=== PATIENT | male | born 1950 | race Caucasian/White ===

== ENCOUNTER 2019-10-08 15:36 | Emergency (ER) | payer MEDICARE ==
--- NOTE | 2019-10-08 17:00 | EDM.PDOC ---
ED HPI GENERAL MEDICAL PROBLEM - General Chief Complaint: General Stated Complaint: FOOT INJURY/ STEPPED ON DOG BONE Time Seen by Provider: 10/08/19 16:00 Source of Information: Reports: Patient History Limitations: Reports: No Limitations - History of Present Illness INITIAL COMMENTS - FREE TEXT/NARRATIVE: Patient is a 69 y/o male who presents with left foot injury that happened 3 days ago. Patient states his dog dropped a t-bone onto his foot. Associated oozing, redness, swelling, and pain to left, lateral dorsal foot. Patient denies fever, N/V, PMHx of diabetes, numbness/tingling, or purulent drainage. Left Foot Pain Score (Numeric/FACES): 8 - Related Data Allergies Allergy/AdvReac Type Severity Reaction Status Date / Time No Known Allergies Allergy Verified 12/30/15 17:01 Home Meds: Home Meds Aspirin/Calcium Carbonate/Mag [Aspirin Buffered 325 mg Tab] 325 mg PO DAILY 12/30/15 [History] Furosemide 40 mg PO DAILY 12/30/15 [History] Magnesium Oxide [Magnesium] 400 mg PO DAILY 12/30/15 [History] [place]-3 Fatty Acids [Fish Oil] 1,000 mg PO DAILY 12/30/15 [History] Warfarin [Coumadin] 4 mg PO MOFR 12/30/15 [History] Warfarin [Coumadin] 6 mg PO SUTUWETHSA 12/30/15 [History] Past Medical History Cardiovascular History: Reports: Blood Clots/VTE/DVT, Hypertension Social & Family History - Family History Family Medical History: Noncontributory ED ROS GENERAL - Review of Systems Review Of Systems: Comprehensive ROS is negative, except as noted in HPI. ED EXAM, GENERAL - Physical Exam Exam: See Below Exam Limited By: No Limitations General Appearance: Alert, No Apparent Distress Peripheral Pulses: 2+: Posterior Tibial (L), Posterior Tibial (R), Dorsalis Pedis (L), Dorsalis Pedis (R) Extremities: Non-Tender, Normal Capillary Refill, Pedal Edema Skin Exam: Warm, Dry, Intact, Erythema, Other (Left, dorsal lateral foot erythema with scab (0.5 cm diameter)) Course - Vital Signs Last Recorded V/S: Last Vital Signs Temp 37.0 C 10/08/19 16:46 Pulse 69 10/08/19 16:46 Resp 18 10/08/19 16:46 BP 135/82 10/08/19 16:46 Pulse Ox 94 L 10/08/19 16:46 Departure - Departure Time of Disposition: 16:50 Disposition: Home, Self-Care 01 Condition: Good Clinical Impression: Cellulitis of foot, left - Discharge Information *PRESCRIPTION DRUG MONITORING PROGRAM REVIEWED*: Not Applicable *COPY OF PRESCRIPTION DRUG MONITORING REPORT IN PATIENT MANA: Not Applicable Instructions: Cellulitis, Adult, [id number] Referrals: PCP,None [Primary Care Provider] - Forms: ED Department Discharge Additional Instructions: Discharge home. Bactrim DS 2 times a day for 10 days with food. Naproxen 500mg by mouth 2 times a day for 10 days. Elevate the foot. Return to the hospital on Saturday. Follow up as needed. Sepsis Event Note (ED) - Evaluation Sepsis Screening Result: No Definite Risk - Focused Exam Vital Signs: Vital Signs Temp Pulse Resp BP Pulse Ox 10/08/19 16:46 37.0 C 69 18 135/82 94 L 10/08/19 16:05 37.0 C 69 18 135/82 94 L - Assessment/Plan Plan: Bactrim DS PO BID x 10 days. Naproxen 500 mg PO BID x 10 days. Labs reviewed and no evidence of kidney insufficiency. Advised patient to return in 3 days for wound re-check. Take medications with food and elevate left foot when possible. Loose fitting shoes for now. Return to the ED for fever >102, unable to tolerate fluids, difficulty breathing/swallowing, and/or persistent/worsening symptoms.
== END 2019-10-08 16:25 | disposition home or self-care (01) ==
LOC: LB.ED 15:36
DX: L03.116 Cellulitis of left lower limb (principal); I10 Essential (primary) hypertension; Z79.82 Long term (current) use of aspirin; Z79.01 Long term (current) use of anticoagulants; Z79.899 Other long term (current) drug therapy
CPT/HCPCS: 99282; 99283

== ENCOUNTER 2020-01-21 00:14 | Emergency (ER) | payer MEDICARE ==
[2020-01-21] MEDS: Lactated Ringers 1,000 ML IV ONE ×2 (01:20→02:53)
--- NOTE | 2020-01-21 01:32 | EDM.PDOC ---
ED HPI GENERAL MEDICAL PROBLEM - General Chief Complaint: Respiratory Problem Stated Complaint: Fall, High heart rate, Short of breath Time Seen by Provider: 01/21/20 00:50 Source of Information: Reports: Patient History Limitations: Reports: No Limitations - History of Present Illness INITIAL COMMENTS - FREE TEXT/NARRATIVE: The patient is a 69-year-old white male who has been undergoing treatment since October for a wound to his left foot with cellulitis of the left leg.. He currently is not on antibiotics and is having every other day dressing changes to the left leg and dressing changes to the right leg. Patient reports he had bandages placed today wounds are looking improved. Today this afternoon patient noted onset of generalized weakness with difficulty being able to walk or stand. He also had onset of fever and shortness of breath. Patient has a history of DVTs and atrial fibrillation. He has INRs done weekly. Today he reports his INR was over 4 and he took 2 mg of Coumadin. Patient's complaints at this time are generalized weakness, shortness of breath and fever. Patient with ongoing dressing changes to left leg and right leg with the worst leg being the left leg. Has healing wounds on the top of his left foot and over his anterior left mcmahon. Patient reports these are much improved. Onset: Other (Fever and shortness of breath started this evening along with generalized weakness) Onset Date: 01/20/20 Onset Time: 20:00 Duration: Minutes: (Symptoms present for the past 6 hours), Other Severity: Moderate Context: Reports: Other (0.183 and a normal okay but a little bit of troponin right and 0.17 is 0.017 is 0.0 23 okay) Associated Symptoms: Reports: Fever/Chills (The other jonathan had Tylenol available of the second dose right), Shortness of Breath, Weakness. Denies: Confusion, Chest Pain, Cough, Nausea/Vomiting - Related Data Allergies Allergy/AdvReac Type Severity Reaction Status Date / Time No Known Allergies Allergy Verified 12/30/15 17:01 Home Meds: Home Meds Aspirin/Calcium Carbonate/Mag [Aspirin Buffered 325 mg Tab] 325 mg PO DAILY 12/30/15 [History] Furosemide 40 mg PO DAILY 12/30/15 [History] Magnesium Oxide [Magnesium] 400 mg PO DAILY 12/30/15 [History] [place]-3 Fatty Acids [Fish Oil] 1,000 mg PO DAILY 12/30/15 [History] Warfarin [Coumadin] 4 mg PO MOFR 12/30/15 [History] Warfarin [Coumadin] 6 mg PO SUTUWETHSA 12/30/15 [History] Past Medical History Cardiovascular History: Reports: Afib, Blood Clots/VTE/DVT, Hypertension Social & Family History - Family History Family Medical History: Noncontributory ED ROS GENERAL - Review of Systems Review Of Systems: See Below Constitutional: Reports: Fever, Weakness, Weight Loss. Denies: Chills HEENT: Reports: No Symptoms Respiratory: Reports: Shortness of Breath. Denies: Wheezing, Cough, Sputum, Hemoptysis Cardiovascular: Reports: Other (Rapid heart rate). Denies: Chest Pain GI/Abdominal: Denies: Abdominal Pain, Black Stool, Diarrhea : Reports: No Symptoms, Other (Decreased urination). Denies: Flank Pain, Frequency Skin: Reports: Other (Chronic wounds on left lower leg with dressing in place. Patient reports redness and swelling is much improved) Psychiatric: Denies: Agitation, Confusion Hematologic/Lymphatic: Reports: Anemia ED EXAM, GENERAL - Physical Exam Exam: See Below Exam Limited By: No Limitations General Appearance: Alert, Mild Distress (Tired appearing pale 69-year-old white male in mild respiratory distress), Other Ears: Normal External Exam Nose: Normal Inspection, Normal Mucosa, No Blood Throat/Mouth: Normal Inspection, Normal Lips, Normal Voice Head: Atraumatic, Normocephalic Neck: Normal Inspection, Supple, Non-Tender (Decreased breath sounds in left lower lung field normal no wheezes or rhonchi.), Full Range of Motion Respiratory/Chest: Other (Mild respiratory distress). No: Rhonchi, Wheezing (Mild respiratory distress ) Cardiovascular: Tachycardia ( ), Irregularly Irregular GI/Abdominal: Soft, Non-Tender, No Organomegaly, No Distention Back Exam: Normal Inspection. No: CVA Tenderness (R), CVA Tenderness (L) Extremities: Normal Range of Motion, Other (Bandages present on both legs. Patient states left is much worse than the right. Has healing wound on the dorsal aspect of the left foot and and anterior aspect of left mcmahon. Patient reports redness and swelling are much improved has been having dressing changes for several months. ) Neurological: Alert, Oriented, Normal Cognition Skin Exam: Other (As per extremity exam) #1 Interpretation EKG Date: 01/21/20 Rhythm: Other (With rapid ventricular rate) Course - Vital Signs Text/Narrative:: Patient initially was started on IV fluids with 2 L of lactated Ringer's given over 2 hours. Initial working diagnosis was pneumonia and Levaquin was started 750 mg IV was given. Chest x-ray showed pleural effusion but no definite infiltrate. CT scan of the chest again did not demonstrate an infiltrate. Patient had low blood pressure elevated pulse and fever along with elevated WBC count. Diagnosis of sepsis with source being either pneumonia or cellulitis of the left leg/wound infection of the left leg. Patient unable to provide urine sample prior to being given antibiotics. Blood cultures were obtained and are pending. The case was discussed with the hospitalist at [facility] Dr. Najera who recommended CT of the head to rule out intracranial bleeding as the patient has history of falling to his knees. Patient denies head trauma or headache at this time but hospitalist recommends CT of the head therefore CT will be obtained. If CT is negative the patient will be transferred to [facility]. In the meantime patient will be given 1 g of vancomycin IV and 3.375 g of Zosyn IV Diagnosis at this time sepsis with source of infection being from wound infection/cellulitis versus pneumonia versus other. After the IV fluids patient reported feeling improved tachycardia improved and the patient continued in atrial fibrillation with improved ventricular rate . Patient will require frequent PT/INRs. Diagnosis 1 sepsis 2 atrial fibrillation with RVR improved after fluids 3 anemia 4 elevated troponin Patient will be transferred once Zosyn and vancomycin have been infused and CT scan of the head is read as negative for intracranial bleed Last Recorded V/S: Last Vital Signs Temp 101.1 F H 01/21/20 05:11 Pulse 88 01/21/20 08:05 Resp 20 01/21/20 08:05 BP 99/64 01/21/20 08:05 Pulse Ox 94 L 01/21/20 08:05 - Orders/Labs/Meds Labs: Laboratory Tests 01/21/20 01/21/20 01/21/20 Range/Units 01:00 01:00 01:00 WBC 23.6 H* D (4.0-11.0) K/uL RBC 2.44 L (4.50-6.50) M/uL Hgb 8.4 L D (13.0-18.0) g/dL Hct 25.0 L D (40.0-54.0) % MCV 103 H (76-96) fL MCH 34.4 H (27.0-32.0) pg MCHC 33.6 (31.0-35.0) g/dL RDW 21.9 H (11.0-16.0) % Plt Count 202 D (150-400) K/uL MPV 9.9 (6.0-10.0) fL Neut % (Auto) 90.0 H (45.0-70.0) % Lymph % (Auto) 4.4 L (20.0-40.0) % Sunflower % (Auto) 5.2 (3.0-10.0) % Eos % (Auto) 0.1 L (1.0-5.0) % Baso % (Auto) 0.3 (0.0-0.5) % Neut # (Auto) 21.28 H (2.00-7.50) K/uL Lymph # (Auto) 1.03 L (1.50-4.00) K/uL Sunflower # (Auto) 1.23 H (0.20-0.80) K/uL Eos # (Auto) 0.03 L (0.04-0.40) K/uL Baso # (Auto) 0.06 (0.02-0.10) K/uL PT 34.7 H (9.0-11.5) sec INR 3.5 (1.0-3.5) Sodium 132 L (136-145) mmol/L Potassium 4.6 (3.5-5.1) mmol/L Chloride 97 L (98-107) mmol/L Carbon Dioxide 22.0 D (21.0-32.0) mmol/L Anion Gap 17.6 H (5.0-15.0) mmol/L BUN 43 H D (8-26) mg/dL Creatinine 1.37 H D (0.70-1.30) mg/dL Est Cr Clr Drug Dosing TNP Estimated GFR (MDRD) 51 L (>60) MLS/MIN BUN/Creatinine Ratio 31.4 H (6-25) Glucose 136 H D (74-100) mg/dL Lactic Acid (0.4-2.0) mmol/L Calcium 8.6 (8.5-10.1) mg/dL Magnesium 1.8 (1.8-2.4) mg/dL Troponin I 0.183 H* (0.000-0.060) ng/mL SARS CoV-2 RNA Rapid FELIX 01/21/20 01/21/20 Range/Units 01:00 01:10 WBC (4.0-11.0) K/uL RBC (4.50-6.50) M/uL Hgb (13.0-18.0) g/dL Hct (40.0-54.0) % MCV (76-96) fL MCH (27.0-32.0) pg MCHC (31.0-35.0) g/dL RDW (11.0-16.0) % Plt Count (150-400) K/uL MPV (6.0-10.0) fL Neut % (Auto) (45.0-70.0) % Lymph % (Auto) (20.0-40.0) % Sunflower % (Auto) (3.0-10.0) % Eos % (Auto) (1.0-5.0) % Baso % (Auto) (0.0-0.5) % Neut # (Auto) (2.00-7.50) K/uL Lymph # (Auto) (1.50-4.00) K/uL Sunflower # (Auto) (0.20-0.80) K/uL Eos # (Auto) (0.04-0.40) K/uL Baso # (Auto) (0.02-0.10) K/uL PT (9.0-11.5) sec INR (1.0-3.5) Sodium (136-145) mmol/L Potassium (3.5-5.1) mmol/L Chloride (98-107) mmol/L Carbon Dioxide (21.0-32.0) mmol/L Anion Gap (5.0-15.0) mmol/L BUN (8-26) mg/dL Creatinine (0.70-1.30) mg/dL Est Cr Clr Drug Dosing Estimated GFR (MDRD) (>60) MLS/MIN BUN/Creatinine Ratio (6-25) Glucose (74-100) mg/dL Lactic Acid 3.2 H (0.4-2.0) mmol/L Calcium (8.5-10.1) mg/dL Magnesium (1.8-2.4) mg/dL Troponin I (0.000-0.060) ng/mL SARS CoV-2 RNA Rapid FELIX Negative Meds: Medications Discontinued Medications Generic Name Dose Route Start Last Admin Trade Name Freq PRN Reason Stop Dose Admin Acetaminophen 650 mg 01/21/20 05:49 01/21/20 05:50 Tylenol PO 01/21/20 05:50 650 mg NOW ONE Administration Acetaminophen Confirm 01/21/20 06:01 01/21/20 06:27 Tylenol Administered 01/21/20 06:02 Not Given Dose 650 mg .ROUTE .STK-MED ONE Lactated Ringer's 1,000 mls @ 999 mls/hr 01/21/20 01:25 01/21/20 02:53 Ringers, Lactated IV 01/21/20 02:25 999 mls/hr BOLUS ONE Administration Levofloxacin/Dextrose 750 mg/ 150 mls @ 100 mls/hr 01/21/20 02:00 01/21/20 02:01 Premix IV 100 mls/hr Q24H SUGAR Administration Lactated Ringer's 1,000 mls @ 999 mls/hr 01/21/20 02:55 01/21/20 03:48 Ringers, Lactated IV 01/21/20 03:55 Not Given BOLUS ONE Vancomycin HCl 1 gm/ Sodium 250 mls @ 167 mls/hr 01/21/20 04:15 01/21/20 05:29 Chloride IV 01/21/20 05:44 Not Given Q24H ONE Piperacillin Sod/Tazobactam 100 mls @ 100 mls/hr 01/21/20 04:15 01/21/20 05:00 Sod 3.375 gm/ Sodium Chloride IV 01/21/20 23:59 100 mls/hr Q6H SUGAR Administration Vancomycin HCl 1 gm/ Sodium 250 mls @ 167 mls/hr 01/21/20 04:55 01/21/20 04:58 Chloride IV 01/21/20 06:24 167 mls/hr ONETIME ONE Administration Sodium Chloride 1,000 mls @ 100 mls/hr 01/21/20 06:30 01/21/20 06:20 Normal Saline IV 100 mls/hr ASDIRECTED SUGAR Administration - Radiology Interpretation Free Text/Narrative:: Chest x-ray left pleural effusion CT of the chest without contrast lungs there is mild left lower lobe compressive atelectasis scattered peripheral linear opacities in the right lung likely representing scarring or atelectasis pleural space there is a small left pleural effusion impression small left pleural effusion no consolidation Departure - Departure Time of Disposition: 06:30 Disposition: DC/Tfer to Acute Hospital 02 Condition: Serious Clinical Impression: Septicemia, Atrial fibrillation with RVR Sepsis Qualifiers: Sepsis type: sepsis due to unspecified organism Sepsis acute organ dysfunction status: without acute organ dysfunction Qualified Code(s): A41.9 - Sepsis, unspecified organism Anemia Qualifiers: Anemia type: unspecified type Qualified Code(s): D64.9 - Anemia, unspecified - Discharge Information *PRESCRIPTION DRUG MONITORING PROGRAM REVIEWED*: Not Applicable *COPY OF PRESCRIPTION DRUG MONITORING REPORT IN PATIENT MANA: Not Applicable Referrals: PCP,None [Primary Care Provider] - Forms: ED Department Discharge
[2020-01-21] MEDS ORDERED: Levofloxacin/Dextrose 5%-Water 750 MG in Premix Bag 1 BAG IV SCH (02:00)
[2020-01-21] MEDS ORDERED: Lactated Ringers 1,000 ML IV ONE (02:55)
[2020-01-21] MEDS ORDERED: Piperacillin/Tazobactam 3.375 GM in Sodium Chloride 0.9% 100 ML IV SCH (04:15)
[2020-01-21] MEDS ORDERED: Acetaminophen 325 MG Tab PO ONE (05:49)
[2020-01-21] MEDS ORDERED: Acetaminophen 325 MG Tab ONE (06:01)
[2020-01-21] MEDS ORDERED: Sodium Chloride 0.9% 1,000 ML IV SCH (06:30)
--- NOTE | 2020-01-21 17:19 | CR ---
DATE OF SERVICE: 01/21/20 CLINICAL DATA: Shortness of breath/low o2 sat AP AND LATERAL CHEST: Comparison is made to a prior exam dated 09/19/16. The patient is status post median sternotomy. The heart remains enlarged, unchanged. There is calcification of the aortic arch. The proximal pulmonary arteries appear prominent suggesting pulmonary hypertension. There is a moderate size left pleural effusion. There is atelectasis and consolidation in the left lung base. Pneumonia should be considered. The exam is otherwise unchanged from the prior. No pneumothorax. [id number] [facility]
--- NOTE | 2020-01-21 17:22 | CT ---
DATE OF SERVICE: 01/21/20 CLINICAL DATA: rule out intracranial bleed after a fall UNENHANCED BRAIN CT: Multislice acquisition through the brain without IV contrast was performed. No priors. There is diffuse atrophy. There are periventricular lucencies bilaterally consistent with small vessel ischemic change. No masses or mass effect. No intracranial hemorrhage. No evidence of acute or subacute infarct. IMPRESSION: No acute intracranial abnormalities. [id number] [facility]
--- NOTE | 2020-01-21 17:31 | CT ---
DATE OF SERVICE: 01/21/20 CLINICAL DATA: Fever elevated WBC and low O2sat UNENHANCED CHEST CT: Multislice acquisition through the chest without IV contrast was performed. No priors. There is a moderate size left pleural effusion. There are atelectatic changes of the dependent portion of the left lung with small areas of consolidation in the lingular segment of the left upper lobe and left lung base. Pneumonia should be considered. There are linear densities in the right mid lung consistent with linear atelectasis or fibrosis. There is a subtle nodular density in the right middle lobe posteriorly adjacent to the major fissure. There are multiple other nodular densities in the periphery of the right lung. There is also subtle ground glass opacity in the right upper lobe. Followup imaging is recommended. The heart is mildly enlarged. There are coronary artery calcifications. There are calcifications in the region of the aortic and mitral valves. No pericardial effusion. No aortic aneurysm. No hilar or mediastinal adenopathy. No other significant findings. [id number] [facility]
== END 2020-01-21 08:10 ==
LOC: LB.ED 00:14
DX: A41.9 Sepsis, unspecified organism (principal); D64.9 Anemia, unspecified; I48.91 Unspecified atrial fibrillation; I10 Essential (primary) hypertension; L03.116 Cellulitis of left lower limb; Z79.82 Long term (current) use of aspirin; Z79.899 Other long term (current) drug therapy; Z20.828 Contact with and (suspected) exposure to other viral communicable diseases
CPT/HCPCS: 36415; 70450; 71046; 71250; 80048; 83605; 83735; 84484; 85025; 85610; 87040; 87077; 93005; 96365; 96366; 96367; 96368; 99285; 99285-25; A9270-GY; J1956; J2543; J3370; J7030; J7050; J7120; U0002

== ENCOUNTER 2021-04-29 06:44 | Emergency (ER) | payer MEDICARE | END 2021-04-29 12:10 | disposition home or self-care (01) | LOC: LB.ED 06:44 | DX: R04.0 Epistaxis (principal); I48.91 Unspecified atrial fibrillation; I10 Essential (primary) hypertension; E05.90 Thyrotoxicosis, unspecified without thyrotoxic crisis or storm; Z88.5 Allergy status to narcotic agent; Z79.01 Long term (current) use of anticoagulants; Z79.899 Other long term (current) drug therapy | CPT/HCPCS: 36415; 80048; 85025; 85610; 99283; A0425; A0429 ==

== ENCOUNTER 2021-09-27 11:31 | Inpatient (IN) | payer MEDICARE ==
[2021-09-27] MEDS ORDERED: Sodium Chloride 0.9% 1,000 ML IV ONE (11:52)
[2021-09-27] MEDS ORDERED: HYDROmorphone 2 MG/ML SDV IVPUSH ONE ×2 (11:58→12:46)
[2021-09-27] MEDS ORDERED: Piperacillin/Tazobactam 3.375 GM in Sodium Chloride 0.9% 100 ML IV ONE (12:15)
[2021-09-27 13:08] LABS: ESTIMATED GFR 66 mL/min (>60)
[2021-09-27] MEDS ORDERED: Warfarin 2 MG Tab PO SCH (15:15)
[2021-09-27] MEDS: Lactated Ringers 1,000 ML IV SCH (18:27)
[2021-09-27] MEDS: Morphine 2 MG/ML SYRINGE IVPUSH PRN ×3 (18:35→22:47)
[2021-09-27] MEDS: Warfarin 2 MG Tab PO SCH (18:37)
[2021-09-27] MEDS ORDERED: ceFAZolin 1 GM Vial ONE (19:51)
[2021-09-27] MEDS: ceFAZolin 1 GM in Sodium Chloride 0.9% 50 ML IV SCH (21:17)
[2021-09-28] MEDS: Lactated Ringers 1,000 ML IV SCH (02:30)
[2021-09-28] MEDS: Morphine 2 MG/ML SYRINGE IVPUSH PRN ×4 (03:46→18:46)
[2021-09-28] MEDS: ceFAZolin 1 GM in Sodium Chloride 0.9% 50 ML IV SCH ×3 (05:13→21:08)
[2021-09-28] MEDS ORDERED: Ketorolac 30 MG/ML SDV ONE (07:46)
[2021-09-28] MEDS ORDERED: Non-Formulary Medication 1 Each (Levothyroxine Sodium [Levothyroxine] 50 MCG Capsule) PO SCH (08:00)
[2021-09-28] MEDS: Metoprolol Succinate 25 MG Tab.ER PO SCH (08:36)
[2021-09-28] MEDS: Finasteride 5 MG Tab PO SCH (08:37)
[2021-09-28] MEDS: Levothyroxine 50 MCG Tab PO SCH (09:05)
[2021-09-28] MEDS: Furosemide 40 MG Tab PO SCH (10:58)
[2021-09-28] MEDS: Warfarin 2 MG Tab PO SCH (17:45)
[2021-09-28] MEDS: Acetaminophen/HYDROcodone 325-5 MG Tab PO PRN (17:46)
[2021-09-29] MEDS: Morphine 2 MG/ML SYRINGE IVPUSH PRN ×5 (05:33→20:26)
[2021-09-29] MEDS: Levothyroxine 50 MCG Tab PO SCH (06:04)
[2021-09-29] MEDS: ceFAZolin 1 GM in Sodium Chloride 0.9% 50 ML IV SCH ×3 (06:04→21:18)
[2021-09-29] MEDS: Metoprolol Succinate 25 MG Tab.ER PO SCH (07:34)
[2021-09-29] MEDS: Finasteride 5 MG Tab PO SCH (07:35)
[2021-09-29] MEDS: Furosemide 40 MG Tab PO SCH (07:35)
[2021-09-29] MEDS: Warfarin 2 MG Tab PO SCH (18:10)
[2021-09-30] MEDS: ceFAZolin 1 GM in Sodium Chloride 0.9% 50 ML IV SCH ×3 (05:19→21:01)
[2021-09-30] MEDS: Levothyroxine 50 MCG Tab PO SCH ×2 (05:19→06:08)
[2021-09-30] MEDS: Metoprolol Succinate 25 MG Tab.ER PO SCH (08:07)
[2021-09-30] MEDS: Finasteride 5 MG Tab PO SCH (08:07)
[2021-09-30] MEDS: Furosemide 40 MG Tab PO SCH (08:07)
[2021-09-30] MEDS: Acetaminophen/HYDROcodone 325-5 MG Tab PO PRN (12:11)
[2021-09-30] MEDS: Warfarin 2 MG Tab PO SCH (18:01)
[2021-09-30] MEDS: Polyethylene Glycol 3350 Powder 17 GM Packet PO PRN (19:10)
[2021-09-30] MEDS: Morphine 2 MG/ML SYRINGE IVPUSH PRN (20:14)
[2021-10-01] MEDS: Levothyroxine 50 MCG Tab PO SCH ×2 (05:44→06:25)
[2021-10-01] MEDS: ceFAZolin 1 GM in Sodium Chloride 0.9% 50 ML IV SCH ×3 (05:44→21:41)
[2021-10-01] MEDS: Morphine 2 MG/ML SYRINGE IVPUSH PRN ×4 (06:15→23:50)
[2021-10-01] MEDS: Furosemide 40 MG Tab PO SCH (07:16)
[2021-10-01] MEDS: Finasteride 5 MG Tab PO SCH (07:16)
[2021-10-01] MEDS: Metoprolol Succinate 25 MG Tab.ER PO SCH (07:17)
[2021-10-01] MEDS ORDERED: Furosemide 40 MG/4 ML VIAL IVPUSH ONE (08:13)
[2021-10-01] MEDS: Warfarin 2 MG Tab PO SCH (17:01)
[2021-10-02] MEDS: Morphine 2 MG/ML SYRINGE IVPUSH PRN ×3 (02:48→15:04)
[2021-10-02] MEDS: Levothyroxine 50 MCG Tab PO SCH ×2 (05:26→06:28)
[2021-10-02] MEDS: ceFAZolin 1 GM in Sodium Chloride 0.9% 50 ML IV SCH ×3 (05:27→22:09)
[2021-10-02] MEDS: Metoprolol Succinate 25 MG Tab.ER PO SCH (07:00)
[2021-10-02] MEDS: Finasteride 5 MG Tab PO SCH (07:00)
[2021-10-02] MEDS: Furosemide 40 MG Tab PO SCH (07:00)
[2021-10-02] MEDS ORDERED: Furosemide 40 MG/4 ML VIAL IVPUSH ONE (11:59)
[2021-10-02] MEDS: Warfarin 2 MG Tab PO SCH (19:04)
[2021-10-02] MEDS: Acetaminophen/HYDROcodone 325-5 MG Tab PO PRN (19:38)
[2021-10-03] MEDS: Acetaminophen/HYDROcodone 325-5 MG Tab PO PRN (05:00)
[2021-10-03] MEDS: ceFAZolin 1 GM in Sodium Chloride 0.9% 50 ML IV SCH ×3 (06:10→22:01)
[2021-10-03] MEDS: Levothyroxine 50 MCG Tab PO SCH (06:12)
[2021-10-03] MEDS: Furosemide 40 MG Tab PO SCH (07:57)
[2021-10-03] MEDS: Finasteride 5 MG Tab PO SCH (07:58)
[2021-10-03] MEDS: Metoprolol Succinate 25 MG Tab.ER PO SCH (07:58)
[2021-10-03] MEDS: Warfarin 2 MG Tab PO SCH (18:19)
[2021-10-03] MEDS ORDERED: Warfarin 2 MG Tab ONE (18:23)
[2021-10-03] MEDS ORDERED: Furosemide 40 MG/4 ML VIAL IVPUSH ONE (18:41)
[2021-10-04] MEDS: Acetaminophen/HYDROcodone 325-5 MG Tab PO PRN (02:09)
[2021-10-04] MEDS: ceFAZolin 1 GM in Sodium Chloride 0.9% 50 ML IV SCH ×3 (06:35→22:11)
[2021-10-04] MEDS: Levothyroxine 50 MCG Tab PO SCH (06:44)
[2021-10-04] MEDS: Metoprolol Succinate 25 MG Tab.ER PO SCH (07:53)
[2021-10-04] MEDS: Finasteride 5 MG Tab PO SCH (07:54)
[2021-10-04] MEDS: Furosemide 40 MG Tab PO SCH (07:54)
[2021-10-04] MEDS: Lactobacillus Acidophilus/Lactobacillus Sporogenes (Probiotic) Tab PO SCH (11:43)
[2021-10-04] MEDS: Furosemide 20 MG Tab PO SCH (11:43)
[2021-10-04] MEDS: Warfarin 2 MG Tab PO SCH (17:19)
[2021-10-05] MEDS: Levothyroxine 50 MCG Tab PO SCH (06:18)
[2021-10-05] MEDS: Acetaminophen/HYDROcodone 325-5 MG Tab PO PRN ×2 (06:18→20:14)
[2021-10-05] MEDS: ceFAZolin 1 GM in Sodium Chloride 0.9% 50 ML IV SCH (06:21)
[2021-10-05] MEDS: Furosemide 40 MG Tab PO SCH (07:20)
[2021-10-05] MEDS: Lactobacillus Acidophilus/Lactobacillus Sporogenes (Probiotic) Tab PO SCH (07:20)
[2021-10-05] MEDS: Finasteride 5 MG Tab PO SCH (07:20)
[2021-10-05] MEDS: Furosemide 20 MG Tab PO SCH (07:21)
[2021-10-05] MEDS ORDERED: oxyCODONE 5 MG Tab PO PRN (10:48)
[2021-10-05] MEDS: Cephalexin 500 MG Cap PO SCH ×3 (11:17→20:15)
[2021-10-05] MEDS ORDERED: Furosemide 20 MG Tab PO SCH (14:00)
[2021-10-05] MEDS: Warfarin 2 MG Tab PO SCH (17:12)
[2021-10-06] MEDS: Levothyroxine 50 MCG Tab PO SCH (06:30)
[2021-10-06] MEDS ORDERED: Furosemide 40 MG Tab PO SCH (08:00)
[2021-10-06] MEDS: Cephalexin 500 MG Cap PO SCH ×4 (08:08→19:52)
[2021-10-06] MEDS: Finasteride 5 MG Tab PO SCH (08:08)
[2021-10-06] MEDS: Lactobacillus Acidophilus/Lactobacillus Sporogenes (Probiotic) Tab PO SCH (08:08)
[2021-10-06] MEDS ORDERED: Sodium Chloride 0.9% 10 ML Syringe FLUSH PRN (09:47)
[2021-10-06] MEDS ORDERED: Furosemide 20 MG Tab PO SCH (12:00)
[2021-10-06] MEDS: Furosemide 40 MG/4 ML VIAL IVPUSH SCH (15:47)
[2021-10-06] MEDS: Warfarin 2 MG Tab PO SCH (17:19)
[2021-10-07] MEDS: Levothyroxine 50 MCG Tab PO SCH (06:47)
[2021-10-07] MEDS: Metoprolol Succinate 25 MG Tab.ER PO SCH (07:17)
[2021-10-07] MEDS: Cephalexin 500 MG Cap PO SCH ×4 (07:18→19:21)
[2021-10-07] MEDS: Furosemide 40 MG/4 ML VIAL IVPUSH SCH ×2 (07:18→16:13)
[2021-10-07] MEDS: Lactobacillus Acidophilus/Lactobacillus Sporogenes (Probiotic) Tab PO SCH (07:18)
[2021-10-07] MEDS: Finasteride 5 MG Tab PO SCH (07:18)
[2021-10-07] MEDS: Warfarin 2 MG Tab PO SCH (17:58)
[2021-10-08] MEDS: Levothyroxine 50 MCG Tab PO SCH (06:38)
[2021-10-08] MEDS: Lactobacillus Acidophilus/Lactobacillus Sporogenes (Probiotic) Tab PO SCH (07:30)
[2021-10-08] MEDS: Finasteride 5 MG Tab PO SCH (07:30)
[2021-10-08] MEDS: Furosemide 40 MG/4 ML VIAL IVPUSH SCH (07:30)
[2021-10-08] MEDS: Cephalexin 500 MG Cap PO SCH ×4 (07:30→19:45)
[2021-10-08] MEDS: Warfarin 2 MG Tab PO SCH (17:38)
[2021-10-08] MEDS ORDERED: Bumetanide 1 MG/4 ML MDV ONE (19:42)
[2021-10-08] MEDS: Bumetanide 1 MG/4 ML MDV IVPUSH SCH (19:49)
[2021-10-09] MEDS: Levothyroxine 50 MCG Tab PO SCH (06:31)
[2021-10-09] MEDS ORDERED: Bumetanide 1 MG/4 ML MDV ONE (07:52)
[2021-10-09] MEDS: Metoprolol Succinate 25 MG Tab.ER PO SCH (07:58)
[2021-10-09] MEDS: Bumetanide 1 MG/4 ML MDV IVPUSH SCH ×2 (07:58→21:01)
[2021-10-09] MEDS: Finasteride 5 MG Tab PO SCH (08:01)
[2021-10-09] MEDS: Cephalexin 500 MG Cap PO SCH ×4 (08:01→21:02)
[2021-10-09] MEDS: Lactobacillus Acidophilus/Lactobacillus Sporogenes (Probiotic) Tab PO SCH (08:02)
[2021-10-10] MEDS: Acetaminophen 325 MG Tab PO PRN (00:29)
[2021-10-10] MEDS: Levothyroxine 50 MCG Tab PO SCH (06:46)
[2021-10-10] MEDS ORDERED: Bumetanide 1 MG/4 ML MDV ONE (08:48)
[2021-10-10] MEDS: Bumetanide 1 MG/4 ML MDV IVPUSH SCH ×2 (08:48→20:27)
[2021-10-10] MEDS: Lactobacillus Acidophilus/Lactobacillus Sporogenes (Probiotic) Tab PO SCH (08:53)
[2021-10-10] MEDS: Cephalexin 500 MG Cap PO SCH ×4 (08:53→20:27)
[2021-10-10] MEDS: Finasteride 5 MG Tab PO SCH (08:53)
[2021-10-10] MEDS: Metoprolol Succinate 25 MG Tab.ER PO SCH (09:10)
[2021-10-10] MEDS ORDERED: Warfarin 4 MG Tab PO ONE (18:00)
[2021-10-10] MEDS: Polyethylene Glycol 3350 Powder 17 GM Packet PO PRN (22:37)
[2021-10-11] MEDS: Acetaminophen 325 MG Tab PO PRN (00:59)
[2021-10-11] MEDS: Levothyroxine 50 MCG Tab PO SCH (06:16)
[2021-10-11] MEDS: Bumetanide 1 MG/4 ML MDV IVPUSH SCH ×2 (07:32→21:55)
[2021-10-11] MEDS: Finasteride 5 MG Tab PO SCH (07:33)
[2021-10-11] MEDS: Metoprolol Succinate 25 MG Tab.ER PO SCH (07:33)
[2021-10-11] MEDS: Lactobacillus Acidophilus/Lactobacillus Sporogenes (Probiotic) Tab PO SCH (07:33)
[2021-10-11] MEDS: Warfarin 2 MG Tab PO SCH (18:43)
[2021-10-12] MEDS: Levothyroxine 50 MCG Tab PO SCH (06:08)
[2021-10-12] MEDS: Metoprolol Succinate 25 MG Tab.ER PO SCH (08:03)
[2021-10-12] MEDS: Lactobacillus Acidophilus/Lactobacillus Sporogenes (Probiotic) Tab PO SCH (08:03)
[2021-10-12] MEDS: Finasteride 5 MG Tab PO SCH (08:05)
[2021-10-12] MEDS: Bumetanide 1 MG/4 ML MDV IVPUSH SCH ×2 (08:06→19:12)
[2021-10-12 09:00] LABS: TROPONIN I HIGH SENSITIVITY 266.4 pg/ml (<=60.4)
[2021-10-12] MEDS: Warfarin 2 MG Tab PO SCH (17:27)
[2021-10-12] MEDS: Polyethylene Glycol 3350 Powder 17 GM Packet PO PRN (19:30)
[2021-10-13] MEDS: Levothyroxine 50 MCG Tab PO SCH (05:59)
[2021-10-13] MEDS: Lactobacillus Acidophilus/Lactobacillus Sporogenes (Probiotic) Tab PO SCH (07:31)
[2021-10-13] MEDS: Finasteride 5 MG Tab PO SCH (07:31)
[2021-10-13] MEDS: Bumetanide 1 MG/4 ML MDV IVPUSH SCH (07:32)
[2021-10-13] MEDS: Metoprolol Succinate 25 MG Tab.ER PO SCH (07:33)
[2021-10-13] MEDS: Bumetanide 1 MG Tab PO SCH (16:54)
[2021-10-13] MEDS: Warfarin 2 MG Tab PO SCH (17:10)
[2021-10-14] MEDS: Levothyroxine 50 MCG Tab PO SCH (07:39)
[2021-10-14] MEDS: Lactobacillus Acidophilus/Lactobacillus Sporogenes (Probiotic) Tab PO SCH (07:41)
[2021-10-14] MEDS: Finasteride 5 MG Tab PO SCH (07:41)
[2021-10-14] MEDS: Bumetanide 1 MG Tab PO SCH ×2 (07:41→16:12)
[2021-10-14] MEDS: Metoprolol Succinate 25 MG Tab.ER PO SCH (07:42)
[2021-10-14] MEDS: Nystatin Topical Powder 15 GM Bottle TOP SCH ×2 (16:11→23:07)
[2021-10-14] MEDS: Warfarin 2 MG Tab PO SCH (17:15)
[2021-10-15] MEDS: Bumetanide 1 MG Tab PO SCH ×2 (07:43→15:18)
[2021-10-15] MEDS: Metoprolol Succinate 25 MG Tab.ER PO SCH (07:43)
[2021-10-15] MEDS: Lactobacillus Acidophilus/Lactobacillus Sporogenes (Probiotic) Tab PO SCH (07:44)
[2021-10-15] MEDS: Nystatin Topical Powder 15 GM Bottle TOP SCH ×2 (07:44→19:57)
[2021-10-15] MEDS: Levothyroxine 50 MCG Tab PO SCH (07:44)
[2021-10-15] MEDS: Finasteride 5 MG Tab PO SCH (07:45)
[2021-10-15] MEDS: Warfarin 2 MG Tab PO SCH (19:58)
[2021-10-16] MEDS: Levothyroxine 50 MCG Tab PO SCH (06:00)
[2021-10-16] MEDS: Finasteride 5 MG Tab PO SCH (08:04)
[2021-10-16] MEDS: Metoprolol Succinate 25 MG Tab.ER PO SCH (08:04)
[2021-10-16] MEDS: Lactobacillus Acidophilus/Lactobacillus Sporogenes (Probiotic) Tab PO SCH (08:04)
[2021-10-16] MEDS: Bumetanide 1 MG Tab PO SCH (08:04)
== END 2021-10-16 10:30 | disposition home or self-care (01) | DRG 603 ==
LOC: LB.ED 11:31 → LB.MS 15:10
PROVIDERS: ADMIT Physician Assistant; ATTEND Physician Assistant
DX: L03.115 Cellulitis of right lower limb (principal); I48.91 Unspecified atrial fibrillation; E05.90 Thyrotoxicosis, unspecified without thyrotoxic crisis or storm; E03.9 Hypothyroidism, unspecified; Z20.822 Contact with and (suspected) exposure to COVID-19; Z86.718 Personal history of other venous thrombosis and embolism; Z95.2 Presence of prosthetic heart valve; R79.1 Abnormal coagulation profile; R00.1 Bradycardia, unspecified; R60.0 Localized edema; N50.89 Other specified disorders of the male genital organs; Z79.890 Hormone replacement therapy; Z88.8 Allergy status to other drugs, medicaments and biological substances; Z79.01 Long term (current) use of anticoagulants; Z79.899 Other long term (current) drug therapy; I50.9 Heart failure, unspecified; I11.0 Hypertensive heart disease with heart failure
CPT/HCPCS: 36415; 51702; 51798; 73700-RT; 80048; 80053; 81001; 82533; 82728; 83605; 83880; 84443; 84484; 85025; 85610; 87040; 93306; 96361; 96365; 96375; 96376; 97110-GP; 97116-GP; 97161-GP; 97530-GP; 99285-25; A0425; A0429; A9270-GY; J0690; J1170; J1940; J2270; J2543; J3490; J7030; J7120; U0002

== ENCOUNTER 2022-02-15 14:15 | Inpatient (IN) | payer MEDICARE ==
[2022-02-15] MEDS ORDERED: Sodium Chloride 0.9% 500 ML IV ONE (15:07)
[2022-02-15] MEDS ORDERED: Pantoprazole 40 MG Vial IVPUSH ONE (15:32)
[2022-02-15] MEDS ORDERED: Pantoprazole 40 MG Vial ONE ×2 (15:44→17:26)
[2022-02-15 15:53] LABS: ESTIMATED GFR 83 mL/min (>60)
[2022-02-15] MEDS: Sodium Chloride 0.9% 1,000 ML IV SCH (16:40)
[2022-02-15] MEDS ORDERED: Acetaminophen 325 MG Tab PO PRN (16:50)
[2022-02-15] MEDS ORDERED: Ondansetron 4 MG/2 ML SDV IV PRN (16:50)
[2022-02-15] MEDS ORDERED: Polyethylene Glycol 3350 Powder 17 GM Packet PO PRN (16:56)
[2022-02-15] MEDS ORDERED: Non-Formulary Medication 1 Each (Zinc [Zinc] 50 MG Tablet) PO SCH (17:00)
[2022-02-15] MEDS ORDERED: MILK THISTLE SEED EXTRACT 200 MG PO SCH (17:00)
[2022-02-15] MEDS: Pantoprazole 80 MG in Sodium Chloride 0.9% 100 ML IV SCH (17:40)
[2022-02-15] MEDS ORDERED: Furosemide 20 MG/2 ML VIAL IVPUSH ONE (20:00)
[2022-02-16] MEDS: Pantoprazole 80 MG in Sodium Chloride 0.9% 100 ML IV SCH ×2 (04:17→14:25)
[2022-02-16] MEDS ORDERED: Levothyroxine 50 MCG Tab PO SCH (07:00)
[2022-02-16] MEDS ORDERED: Ferrous Sulfate 325 MG Tab PO SCH (07:00)
[2022-02-16] MEDS ORDERED: Ascorbic Acid 500 MG Tab PO SCH (08:00)
[2022-02-16] MEDS ORDERED: Fish Oil/Omega-3 Fatty Acids 1 Gm Cap PO SCH (08:00)
[2022-02-16] MEDS ORDERED: Finasteride 5 MG Tab PO SCH (08:00)
[2022-02-16] MEDS ORDERED: Furosemide 40 MG Tab PO SCH (08:00)
[2022-02-16] MEDS ORDERED: Potassium Chloride Riders 10 MEQ in Premix Bag 1 BAG IV ONE (10:37)
[2022-02-16] MEDS ORDERED: Orphenadrine 60 MG/2 ML Inj IV ONE (13:57)
[2022-02-16] MEDS ORDERED: Orphenadrine 60 MG/2 ML Inj ONE (14:05)
[2022-02-16] MEDS: Sodium Chloride 0.9% 1,000 ML IV SCH (14:25)
[2022-02-16] MEDS ORDERED: Calcium Carbonate 600 MG Tab PO ONE (14:52)
[2022-02-16] MEDS ORDERED: Morphine 2 MG/ML SYRINGE IVPUSH ONE (14:53)
[2022-02-17] MEDS ORDERED: Zinc (Zinc Gluconate) 50 MG Tab PO SCH (08:00)
== END 2022-02-16 17:50 | DRG 379 ==
LOC: LB.ED 14:15 → LB.MS 16:25 → UNDOADMIN 16:25 → LB.MS 16:50
PROVIDERS: ADMIT Nurse Practitioner Family; ATTEND Nurse Practitioner Family
PROC: 30233N1 Transfusion of Nonautologous Red Blood Cells into Peripheral Vein, Percutaneous Approach (ICD-10-PCS; principal; 2022-02-15)
DX: K92.2 Gastrointestinal hemorrhage, unspecified (principal); I95.9 Hypotension, unspecified; R79.1 Abnormal coagulation profile; I48.91 Unspecified atrial fibrillation; D64.9 Anemia, unspecified; R06.09 Other forms of dyspnea; D68.9 Coagulation defect, unspecified; I11.0 Hypertensive heart disease with heart failure; E21.3 Hyperparathyroidism, unspecified; I50.9 Heart failure, unspecified; Z95.2 Presence of prosthetic heart valve; E03.9 Hypothyroidism, unspecified; Z86.718 Personal history of other venous thrombosis and embolism; Z88.8 Allergy status to other drugs, medicaments and biological substances; Z79.01 Long term (current) use of anticoagulants; Z79.890 Hormone replacement therapy; Z79.899 Other long term (current) drug therapy; Z20.822 Contact with and (suspected) exposure to COVID-19
CPT/HCPCS: 36415; 71045; 80053; 83605; 83735; 83880; 84484; 85025; 85610; 86850; 86900; 86901; 86920 ×2; 86922 ×2; 93005; 96361; 96374; 99285; C9113; J7040; U0002; 36430; A0425; A0429; A9270-GY; J1940; J2270; J2360; J3480; J3490; J7030; P9016

== ENCOUNTER 2022-05-21 11:48 | Inpatient (IN) | payer MEDICARE ==
[2022-05-21] MEDS ORDERED: Sodium Chloride 0.9% 10 ML Syringe FLUSH PRN (12:18)
[2022-05-21 13:25] LABS: TROPONIN I HIGH SENSITIVITY 130.8 pg/ml (<=60.4)
[2022-05-21] MEDS: Furosemide 40 MG/4 ML VIAL ONE ×2 (13:34→13:35)
[2022-05-21] MEDS ORDERED: Furosemide 40 MG/4 ML VIAL IVPUSH ONE (13:34)
[2022-05-21] MEDS: Finasteride 5 MG Tab PO SCH (17:49)
[2022-05-21] MEDS: Furosemide 20 MG/2 ML VIAL IVPUSH SCH (17:49)
[2022-05-21] MEDS: Furosemide 40 MG Tab PO SCH (17:49)
[2022-05-21] MEDS: Potassium Chloride 20 MEQ Tab.ER PO SCH (21:10)
[2022-05-21] MEDS: Pantoprazole 40 MG Tab.CR PO SCH (21:10)
[2022-05-21] MEDS ORDERED: Warfarin 4 MG Tab PO ONE (21:11)
[2022-05-21] MEDS ORDERED: Acetaminophen 325 MG Tab PO PRN (21:31)
[2022-05-21] MEDS ORDERED: Acetaminophen 650 MG Tab.ER PO PRN (22:56)
[2022-05-21] MEDS ORDERED: Acetaminophen 650 MG Tab.ER ONE (23:01)
[2022-05-22] MEDS: Pantoprazole 40 MG Tab.CR PO SCH ×2 (06:18→20:03)
[2022-05-22] MEDS: Levothyroxine 50 MCG Tab PO SCH (06:18)
[2022-05-22] MEDS: Furosemide 20 MG/2 ML VIAL IVPUSH SCH (07:21)
[2022-05-22] MEDS: Furosemide 40 MG Tab PO SCH (07:22)
[2022-05-22] MEDS: Metolazone 5 MG Tab PO SCH (07:22)
[2022-05-22] MEDS: Finasteride 5 MG Tab PO SCH (07:22)
[2022-05-22] MEDS ORDERED: Oxymetazoline 0.05% Nasal Spray 15 ML Bottle NAS PRN (12:46)
[2022-05-22] MEDS: Potassium Chloride 20 MEQ Tab.ER PO SCH (20:02)
[2022-05-22] MEDS: traMADol 50 MG Tab PO PRN (20:05)
[2022-05-23] MEDS: traMADol 50 MG Tab PO PRN ×2 (04:07→17:28)
[2022-05-23] MEDS: Furosemide 40 MG Tab PO SCH (07:43)
[2022-05-23] MEDS: Pantoprazole 40 MG Tab.CR PO SCH ×2 (07:43→20:04)
[2022-05-23] MEDS: Levothyroxine 50 MCG Tab PO SCH (07:43)
[2022-05-23] MEDS: Furosemide 20 MG/2 ML VIAL IVPUSH SCH (07:44)
[2022-05-23] MEDS: Metolazone 5 MG Tab PO SCH (07:44)
[2022-05-23] MEDS: Finasteride 5 MG Tab PO SCH (07:44)
[2022-05-23] MEDS ORDERED: Lactulose Soln 10 GM/15 ML 15 ML UD Cup PO ONE (10:36)
[2022-05-23] MEDS: Warfarin 3 MG Tab PO SCH (17:25)
[2022-05-23] MEDS: Potassium Chloride 20 MEQ Tab.ER PO SCH (20:05)
[2022-05-24] MEDS: Levothyroxine 50 MCG Tab PO SCH (07:23)
[2022-05-24] MEDS: Pantoprazole 40 MG Tab.CR PO SCH ×2 (07:23→20:16)
[2022-05-24] MEDS: Furosemide 40 MG Tab PO SCH (09:05)
[2022-05-24] MEDS: Furosemide 20 MG/2 ML VIAL IVPUSH SCH (09:06)
[2022-05-24] MEDS: Finasteride 5 MG Tab PO SCH (09:06)
[2022-05-24] MEDS: Metolazone 5 MG Tab PO SCH (09:06)
[2022-05-24] MEDS: traMADol 50 MG Tab PO PRN ×2 (11:09→20:16)
[2022-05-24] MEDS ORDERED: Furosemide 20 MG/2 ML VIAL IVPUSH SCH (16:00)
[2022-05-24] MEDS: Warfarin 3 MG Tab PO SCH (17:55)
[2022-05-24] MEDS: Potassium Chloride 20 MEQ Tab.ER PO SCH (20:16)
[2022-05-25] MEDS: Pantoprazole 40 MG Tab.CR PO SCH ×2 (06:09→19:59)
[2022-05-25] MEDS: Levothyroxine 50 MCG Tab PO SCH (06:09)
[2022-05-25] MEDS: Finasteride 5 MG Tab PO SCH (08:11)
[2022-05-25] MEDS: Furosemide 40 MG Tab PO SCH (08:11)
[2022-05-25] MEDS: Metolazone 5 MG Tab PO SCH (08:11)
[2022-05-25] MEDS: Furosemide 20 MG/2 ML VIAL IVPUSH SCH ×2 (08:12→15:58)
[2022-05-25] MEDS: traMADol 50 MG Tab PO PRN ×2 (08:18→20:00)
[2022-05-25] MEDS: Warfarin 3 MG Tab PO SCH (17:06)
[2022-05-25] MEDS ORDERED: Warfarin 3 MG Tab ONE (17:09)
[2022-05-25] MEDS: Potassium Chloride 20 MEQ Tab.ER PO SCH (19:59)
[2022-05-26] MEDS: Levothyroxine 50 MCG Tab PO SCH (07:06)
[2022-05-26] MEDS: Pantoprazole 40 MG Tab.CR PO SCH ×2 (07:06→20:32)
[2022-05-26] MEDS: Metolazone 5 MG Tab PO SCH (07:40)
[2022-05-26] MEDS: Furosemide 20 MG/2 ML VIAL IVPUSH SCH ×2 (07:40→15:31)
[2022-05-26] MEDS: Finasteride 5 MG Tab PO SCH (07:41)
[2022-05-26] MEDS: Furosemide 40 MG Tab PO SCH (07:41)
[2022-05-26] MEDS: Polyethylene Glycol 3350 Powder 17 GM Packet PO SCH (10:19)
[2022-05-26 11:21] LABS: TROPONIN I HIGH SENSITIVITY 110.3 pg/ml (<=60.4)
[2022-05-26] MEDS: traMADol 50 MG Tab PO PRN (18:10)
[2022-05-26] MEDS: Potassium Chloride 20 MEQ Tab.ER PO SCH (20:32)
[2022-05-27] MEDS: Levothyroxine 50 MCG Tab PO SCH (08:19)
[2022-05-27] MEDS: Pantoprazole 40 MG Tab.CR PO SCH ×2 (08:19→19:49)
[2022-05-27] MEDS: Furosemide 20 MG/2 ML VIAL IVPUSH SCH ×2 (08:20→09:26)
[2022-05-27] MEDS: Polyethylene Glycol 3350 Powder 17 GM Packet PO SCH (08:20)
[2022-05-27] MEDS: Finasteride 5 MG Tab PO SCH (08:20)
[2022-05-27] MEDS: Metolazone 5 MG Tab PO SCH (08:20)
[2022-05-27] MEDS: Furosemide 40 MG Tab PO SCH (08:20)
[2022-05-27] MEDS: traMADol 50 MG Tab PO PRN ×2 (08:22→19:49)
[2022-05-27] MEDS ORDERED: Furosemide 20 MG Tab PO ONE (11:48)
[2022-05-27] MEDS: Potassium Chloride 20 MEQ Tab.ER PO SCH (19:49)
[2022-05-28] MEDS: Polyethylene Glycol 3350 Powder 17 GM Packet PO SCH (08:13)
[2022-05-28] MEDS: Metolazone 5 MG Tab PO SCH (08:13)
[2022-05-28] MEDS: Furosemide 40 MG Tab PO SCH (08:13)
[2022-05-28] MEDS: Levothyroxine 50 MCG Tab PO SCH (08:13)
[2022-05-28] MEDS ORDERED: Finasteride 5 MG Tab ONE (08:25)
[2022-05-28] MEDS: Finasteride 5 MG Tab PO SCH (08:26)
[2022-05-28] MEDS: Pantoprazole 40 MG Tab.CR PO SCH ×2 (08:26→19:30)
[2022-05-28] MEDS: Warfarin 2 MG Tab PO SCH (19:29)
[2022-05-28] MEDS: Potassium Chloride 20 MEQ Tab.ER PO SCH (19:30)
[2022-05-28] MEDS: traMADol 50 MG Tab PO PRN (19:30)
[2022-05-29] MEDS: Pantoprazole 40 MG Tab.CR PO SCH ×2 (06:21→19:43)
[2022-05-29] MEDS: Levothyroxine 50 MCG Tab PO SCH (06:21)
[2022-05-29] MEDS: Metolazone 5 MG Tab PO SCH (07:45)
[2022-05-29] MEDS: traMADol 50 MG Tab PO PRN ×2 (07:45→17:12)
[2022-05-29] MEDS: Polyethylene Glycol 3350 Powder 17 GM Packet PO SCH (07:45)
[2022-05-29] MEDS: Furosemide 40 MG Tab PO SCH (07:46)
[2022-05-29] MEDS: Finasteride 5 MG Tab PO SCH (07:46)
[2022-05-29] MEDS ORDERED: Furosemide 20 MG Tab PO SCH (14:00)
[2022-05-29] MEDS: Warfarin 2 MG Tab PO SCH (17:12)
[2022-05-29] MEDS: Potassium Chloride 20 MEQ Tab.ER PO SCH (19:42)
[2022-05-30] MEDS: traMADol 50 MG Tab PO PRN (01:06)
[2022-05-30] MEDS: Pantoprazole 40 MG Tab.CR PO SCH ×2 (06:25→19:45)
[2022-05-30] MEDS: Levothyroxine 50 MCG Tab PO SCH (06:25)
[2022-05-30] MEDS: Polyethylene Glycol 3350 Powder 17 GM Packet PO SCH (08:13)
[2022-05-30] MEDS: Metolazone 5 MG Tab PO SCH (08:13)
[2022-05-30] MEDS: Furosemide 40 MG Tab PO SCH (08:14)
[2022-05-30] MEDS: Finasteride 5 MG Tab PO SCH (08:14)
[2022-05-30] MEDS: Bumetanide 1 MG Tab PO SCH (14:53)
[2022-05-30] MEDS ORDERED: Warfarin 3 MG Tab PO SCH (18:00)
[2022-05-30] MEDS ORDERED: Warfarin 3 MG Tab PO ONE (18:30)
[2022-05-30] MEDS: Potassium Chloride 20 MEQ Tab.ER PO SCH (19:45)
[2022-05-31] MEDS: Pantoprazole 40 MG Tab.CR PO SCH ×2 (06:28→20:28)
[2022-05-31] MEDS: Ferrous Sulfate 325 MG Tab PO SCH (06:28)
[2022-05-31] MEDS: Levothyroxine 50 MCG Tab PO SCH (06:28)
[2022-05-31] MEDS: traMADol 50 MG Tab PO PRN ×3 (08:05→20:28)
[2022-05-31] MEDS: Finasteride 5 MG Tab PO SCH (08:05)
[2022-05-31] MEDS: Bumetanide 1 MG Tab PO SCH ×2 (08:06→13:58)
[2022-05-31] MEDS: Polyethylene Glycol 3350 Powder 17 GM Packet PO SCH (08:06)
[2022-05-31] MEDS: Metolazone 5 MG Tab PO SCH (08:06)
[2022-05-31] MEDS: Warfarin 3 MG Tab PO SCH (18:12)
[2022-05-31] MEDS: Potassium Chloride 20 MEQ Tab.ER PO SCH (20:28)
[2022-06-01] MEDS: Ferrous Sulfate 325 MG Tab PO SCH (08:03)
[2022-06-01] MEDS: Levothyroxine 50 MCG Tab PO SCH (08:03)
[2022-06-01] MEDS: Bumetanide 1 MG Tab PO SCH ×2 (08:04→13:50)
[2022-06-01] MEDS: Metolazone 5 MG Tab PO SCH (08:04)
[2022-06-01] MEDS: Finasteride 5 MG Tab PO SCH (08:04)
[2022-06-01] MEDS: Pantoprazole 40 MG Tab.CR PO SCH ×2 (08:04→19:24)
[2022-06-01] MEDS: Polyethylene Glycol 3350 Powder 17 GM Packet PO SCH (08:05)
[2022-06-01] MEDS ORDERED: Warfarin 4 MG Tab PO ONE (11:29)
[2022-06-01] MEDS: Warfarin 3 MG Tab PO SCH ×3 (17:00→22:33)
[2022-06-01] MEDS: Potassium Chloride 20 MEQ Tab.ER PO SCH (19:24)
[2022-06-01] MEDS: traMADol 50 MG Tab PO PRN (19:25)
[2022-06-02] MEDS: Metolazone 5 MG Tab PO SCH (07:55)
[2022-06-02] MEDS: Ferrous Sulfate 325 MG Tab PO SCH (07:55)
[2022-06-02] MEDS: Pantoprazole 40 MG Tab.CR PO SCH (07:55)
[2022-06-02] MEDS: Bumetanide 1 MG Tab PO SCH (07:55)
[2022-06-02] MEDS: Finasteride 5 MG Tab PO SCH (07:56)
[2022-06-02] MEDS: Levothyroxine 50 MCG Tab PO SCH (07:56)
[2022-06-02] MEDS: Polyethylene Glycol 3350 Powder 17 GM Packet PO SCH (07:56)
[2022-06-02] MEDS ORDERED: Bumetanide 1 MG Tab ONE (09:00)
[2022-06-02 12:40] VITALS: BP 116/45; PULSE 60
== END 2022-06-02 12:47 | disposition home or self-care (01) | DRG 948 ==
LOC: LB.ED 11:48 → LB.MS 14:09
PROVIDERS: ADMIT Surgery; ATTEND Surgery
DX: R60.1 Generalized edema (principal); D64.9 Anemia, unspecified; I48.91 Unspecified atrial fibrillation; E03.9 Hypothyroidism, unspecified; I10 Essential (primary) hypertension; R53.81 Other malaise; R74.8 Abnormal levels of other serum enzymes; Z79.899 Other long term (current) drug therapy; Z20.822 Contact with and (suspected) exposure to COVID-19; I50.9 Heart failure, unspecified; K21.9 Gastro-esophageal reflux disease without esophagitis; I11.0 Hypertensive heart disease with heart failure; Z95.2 Presence of prosthetic heart valve; Z79.890 Hormone replacement therapy; Z86.718 Personal history of other venous thrombosis and embolism; Z79.01 Long term (current) use of anticoagulants
CPT/HCPCS: 36415; 71045; 80048; 80053; 82140; 83735; 83880; 84100; 84484; 85025; 85027; 85610; 93005; 93010; 96374; 99285-25; A9270-GY; J1940; U0002

== ENCOUNTER 2022-09-19 07:43 | Inpatient (IN) | payer MEDICARE ==
[2022-09-19] MEDS ORDERED: Morphine 2 MG/ML SYRINGE IVPUSH ONE (08:04)
[2022-09-19] MEDS ORDERED: Sodium Chloride 0.9% 10 ML Syringe FLUSH PRN (08:04)
[2022-09-19] MEDS ORDERED: Morphine 2 MG/ML SYRINGE ONE (08:08)
[2022-09-19 08:19] LABS: HEMATOCRIT 28.6 % (40.0-54.0); HEMOGLOBIN 9.6 g/dL (13.0-18.0); MEAN CORPUSCULAR HEMOGLOBIN 33.6 pg (27.0-32.0); MEAN CORPUSCULAR HGB CONC 33.6 g/dL (31.0-35.0); MEAN PLATELET VOLUME 11.2 fL (6.0-10.0); RED BLOOD CELL COUNT 2.86 M/uL (4.50-6.50); RED CELL DISTRIBUTION WIDTH 25.9 % (11.0-16.0)
[2022-09-19 08:24] LABS: WHITE BLOOD CELL COUNT,WBC 24.6 K/uL (4.0-11.0)
[2022-09-19 08:39] LABS: A/G RATIO 0.7 (0.8-2.0); ALBUMIN 2.8 g/dL (3.4-5.0); ANION GAP 12.5 mmol/L (5.0-15.0); BILIRUBIN TOTAL 4.1 mg/dL (0.0-1.0); BUN/CREATININE RATIO 21.5 (6-25); CALCIUM 8.6 mg/dL (8.5-10.1); CARBON DIOXIDE,CO2 27.8 mmol/L (21.0-32.0); CREATININE 1.3 mg/dL (0.70-1.30); EST CRCL DRUG DOSING (CG) 46.61 mL/min; POTASSIUM,K 3.3 mmol/L (3.5-5.1); PROTEIN TOTAL,TP 6.9 g/dL (6.4-8.2)
[2022-09-19 08:42] LABS: PROTHROMBIN TIME 19.7 sec (9.0-11.5)
[2022-09-19 08:53] LABS: APPEARANCE,URINE SLIGHTLY CLOUDY (CLEAR); BILIRUBIN,URINE NEGATIVE (NEGATIVE); COLOR,URINE YELLOW; GLUCOSE,URINE NEGATIVE (NEGATIVE); KETONES,URINE NEGATIVE (NEGATIVE); LEUKOCYTE ESTERASE,URINE SMALL (NEGATIVE); NITRITE,URINE NEGATIVE (NEGATIVE); OCCULT BLOOD,URINE SMALL (NEGATIVE); PROTEIN,URINE TRACE mg/dL (NEGATIVE); UROBILINOGEN,URINE 0.2 E.U./dL (0.2-1.0)
[2022-09-19 09:15] LABS: RBC,URINE 0-5 /HPF; WBC,URINE 30-40 /HPF
[2022-09-19 09:16] LABS: BACTERIA,URINE MANY /HPF; SQUAMOUS EPITHELIAL CELLS,UR FEW /HPF
[2022-09-19] MEDS: Levofloxacin/Dextrose 5%-Water 500 MG in Levofloxacin/Dextrose 5%-Water 100 ML IV SCH (09:53)
[2022-09-19] MEDS ORDERED: Polyethylene Glycol 3350 Powder 17 GM Packet PO PRN (10:11)
[2022-09-19] MEDS ORDERED: Non-Formulary Medication 1 Each (Metolazone [Metolazone] 2.5 MG Tablet) PO SCH (10:15)
[2022-09-19 12:09] LABS: LACTIC ACID 2.7 mmol/L (0.4-2.0)
[2022-09-19] MEDS: Metolazone 5 MG Tab PO SCH (12:24)
[2022-09-19] MEDS: Bumetanide 1 MG Tab PO SCH (15:52)
[2022-09-19] MEDS ORDERED: Potassium Chloride Riders 10 MEQ in Premix Bag 1 BAG IV ONE (18:58)
[2022-09-19] MEDS: Warfarin 2 MG Tab PO SCH (19:32)
[2022-09-19] MEDS: Sodium Chloride 0.9% 1,000 ML IV SCH (19:33)
[2022-09-19] MEDS: Potassium Chloride 20 MEQ Tab.ER PO SCH (19:51)
[2022-09-20] MEDS: Sodium Chloride 0.9% 1,000 ML IV SCH (04:41)
[2022-09-20] MEDS ORDERED: Levofloxacin/Dextrose 5%-Water 500 MG in Levofloxacin/Dextrose 5%-Water 100 ML IV SCH (08:00)
[2022-09-20 08:01] LABS: HEMATOCRIT 26.6 % (40.0-54.0); HEMOGLOBIN 8.9 g/dL (13.0-18.0); MEAN CORPUSCULAR HEMOGLOBIN 33.6 pg (27.0-32.0); MEAN CORPUSCULAR HGB CONC 33.5 g/dL (31.0-35.0); MEAN PLATELET VOLUME 11.1 fL (6.0-10.0); RED BLOOD CELL COUNT 2.65 M/uL (4.50-6.50); RED CELL DISTRIBUTION WIDTH 25.6 % (11.0-16.0)
[2022-09-20] MEDS: Levothyroxine 50 MCG Tab PO SCH (08:03)
[2022-09-20] MEDS: Ferrous Sulfate 325 MG Tab PO SCH (08:03)
[2022-09-20] MEDS: Finasteride 5 MG Tab PO SCH (08:03)
[2022-09-20] MEDS: Bumetanide 1 MG Tab PO SCH ×2 (08:04→14:20)
[2022-09-20 08:23] LABS: INR 1.8 (1.0-3.5)
[2022-09-20 08:25] LABS: PROTHROMBIN TIME 18.2 sec (9.0-11.5)
[2022-09-20] MEDS: Levofloxacin/Dextrose 5%-Water 500 MG in Levofloxacin/Dextrose 5%-Water 100 ML IV SCH (09:44)
[2022-09-20 13:01] LABS: A/G RATIO 0.6 (0.8-2.0); ALBUMIN 2.6 g/dL (3.4-5.0); BILIRUBIN TOTAL 3.3 mg/dL (0.0-1.0); BUN/CREATININE RATIO 23.8 (6-25); CALCIUM 8.6 mg/dL (8.5-10.1); CARBON DIOXIDE,CO2 29.7 mmol/L (21.0-32.0); CREATININE 1.26 mg/dL (0.70-1.30); EST CRCL DRUG DOSING (CG) 48.09 mL/min; POTASSIUM,K 3.7 mmol/L (3.5-5.1); PROTEIN TOTAL,TP 6.7 g/dL (6.4-8.2)
[2022-09-20] MEDS ORDERED: Bumetanide 2.5 MG/10 ML MDV IVPUSH ONE (18:15)
[2022-09-20] MEDS: Warfarin 2 MG Tab PO SCH (18:33)
[2022-09-20] MEDS: Potassium Chloride 20 MEQ Tab.ER PO SCH (20:05)
[2022-09-21] MEDS: Metolazone 5 MG Tab PO SCH (07:20)
[2022-09-21] MEDS: Finasteride 5 MG Tab PO SCH (07:20)
[2022-09-21] MEDS: Levothyroxine 50 MCG Tab PO SCH (07:20)
[2022-09-21] MEDS: Ferrous Sulfate 325 MG Tab PO SCH (07:20)
[2022-09-21] MEDS: Bumetanide 1 MG Tab PO SCH (07:20)
[2022-09-21 08:29] LABS: A/G RATIO 0.6 (0.8-2.0); ALBUMIN 2.5 g/dL (3.4-5.0); ANION GAP 11.5 mmol/L (5.0-15.0); BILIRUBIN TOTAL 2.6 mg/dL (0.0-1.0); BUN/CREATININE RATIO 23.6 (6-25); CALCIUM 8.1 mg/dL (8.5-10.1); CARBON DIOXIDE,CO2 30.1 mmol/L (21.0-32.0); CREATININE 1.27 mg/dL (0.70-1.30); EST CRCL DRUG DOSING (CG) 47.71 mL/min; POTASSIUM,K 3.6 mmol/L (3.5-5.1)
[2022-09-21 09:02] LABS: INR 1.9 (1.0-3.5)
[2022-09-21] MEDS: Levofloxacin/Dextrose 5%-Water 500 MG in Levofloxacin/Dextrose 5%-Water 100 ML IV SCH (10:01)
[2022-09-21] MEDS: Potassium Chloride 20 MEQ Tab.ER PO SCH ×2 (10:01→19:46)
[2022-09-21] MEDS ORDERED: HYDROmorphone 2 MG Tab PO PRN (16:01)
[2022-09-21] MEDS: Lidocaine 5% 700 MG Patch TRDERM SCH (16:22)
[2022-09-21] MEDS: Warfarin 2 MG Tab PO SCH (17:33)
[2022-09-21] MEDS: Bumetanide 2.5 MG/10 ML MDV IVPUSH SCH (19:46)
[2022-09-22] MEDS: Bumetanide 2.5 MG/10 ML MDV IVPUSH SCH ×2 (07:37→19:24)
[2022-09-22] MEDS: Levothyroxine 50 MCG Tab PO SCH (07:37)
[2022-09-22] MEDS: Ferrous Sulfate 325 MG Tab PO SCH (07:37)
[2022-09-22] MEDS: Potassium Chloride 20 MEQ Tab.ER PO SCH ×2 (07:38→19:24)
[2022-09-22] MEDS: Finasteride 5 MG Tab PO SCH (07:38)
[2022-09-22 08:43] LABS: A/G RATIO 0.6 (0.8-2.0); ALBUMIN 2.8 g/dL (3.4-5.0); ANION GAP 10.1 mmol/L (5.0-15.0); BILIRUBIN TOTAL 2.1 mg/dL (0.0-1.0); BUN/CREATININE RATIO 26.2 (6-25); CALCIUM 8.6 mg/dL (8.5-10.1); CARBON DIOXIDE,CO2 31.5 mmol/L (21.0-32.0); CREATININE 1.26 mg/dL (0.70-1.30); EST CRCL DRUG DOSING (CG) 48.09 mL/min; POTASSIUM,K 3.6 mmol/L (3.5-5.1); PROTEIN TOTAL,TP 7.2 g/dL (6.4-8.2)
[2022-09-22 08:55] LABS: INR 2.1 (1.0-3.5)
[2022-09-22 08:56] LABS: PROTHROMBIN TIME 21.1 sec (9.0-11.5)
[2022-09-22 08:57] LABS: BASOPHILS ABSOLUTE AUTO 0.06 K/uL (0.02-0.10); BASOPHILS PERCENT AUTO 1.2 % (0.0-0.5); EOSINOPHILS ABSOLUTE AUTO 0.35 K/uL (0.04-0.40); HEMATOCRIT 28.2 % (40.0-54.0); HEMOGLOBIN 9.5 g/dL (13.0-18.0); LYMPHOCYTES ABSOLUTE AUTO 0.73 K/uL (1.50-4.00); LYMPHOCYTES PERCENT AUTO 14.6 % (20.0-40.0); MEAN CORPUSCULAR HEMOGLOBIN 33.3 pg (27.0-32.0); MEAN CORPUSCULAR HGB CONC 33.7 g/dL (31.0-35.0); MEAN CORPUSCULAR VOLUME 99 fL (76-96); MEAN PLATELET VOLUME 11.5 fL (6.0-10.0); MONOCYTES ABSOLUTE AUTO 0.89 K/uL (0.20-0.80); MONOCYTES PERCENT AUTO 17.8 % (3.0-10.0); NEUTROPHILS ABSOLUTE AUTO 2.96 K/uL (2.00-7.50); NEUTROPHILS PERCENT AUTO 59.4 % (45.0-70.0); PLATELET COUNT,PLT 122 K/uL (150-400); RED BLOOD CELL COUNT 2.85 M/uL (4.50-6.50); RED CELL DISTRIBUTION WIDTH 25.2 % (11.0-16.0)
[2022-09-22] MEDS: Lidocaine 5% 700 MG Patch TRDERM SCH (16:34)
[2022-09-22] MEDS: Warfarin 2 MG Tab PO SCH (18:10)
[2022-09-23] MEDS: Finasteride 5 MG Tab PO SCH (07:54)
[2022-09-23] MEDS: Levothyroxine 50 MCG Tab PO SCH (07:54)
[2022-09-23] MEDS: Bumetanide 2.5 MG/10 ML MDV IVPUSH SCH ×2 (07:54→20:09)
[2022-09-23] MEDS: Potassium Chloride 20 MEQ Tab.ER PO SCH ×2 (07:54→20:12)
[2022-09-23] MEDS: Ferrous Sulfate 325 MG Tab PO SCH (07:54)
[2022-09-23 08:20] LABS: ANION GAP 6.2 mmol/L (5.0-15.0); CALCIUM 8.6 mg/dL (8.5-10.1); CARBON DIOXIDE,CO2 32.4 mmol/L (21.0-32.0); CREATININE 1.21 mg/dL (0.70-1.30); EST CRCL DRUG DOSING (CG) 50.08 mL/min; POTASSIUM,K 3.6 mmol/L (3.5-5.1)
[2022-09-23 08:22] LABS: BASOPHILS ABSOLUTE AUTO 0.07 K/uL (0.02-0.10); BASOPHILS PERCENT AUTO 1.3 % (0.0-0.5); EOSINOPHILS ABSOLUTE AUTO 0.41 K/uL (0.04-0.40); EOSINOPHILS PERCENT AUTO 7.8 % (1.0-5.0); HEMATOCRIT 26.4 % (40.0-54.0); LYMPHOCYTES ABSOLUTE AUTO 0.77 K/uL (1.50-4.00); LYMPHOCYTES PERCENT AUTO 14.6 % (20.0-40.0); MEAN CORPUSCULAR HEMOGLOBIN 33.7 pg (27.0-32.0); MEAN CORPUSCULAR HGB CONC 34.1 g/dL (31.0-35.0); MEAN CORPUSCULAR VOLUME 99 fL (76-96); MEAN PLATELET VOLUME 11.3 fL (6.0-10.0); MONOCYTES ABSOLUTE AUTO 1.01 K/uL (0.20-0.80); MONOCYTES PERCENT AUTO 19.1 % (3.0-10.0); NEUTROPHILS ABSOLUTE AUTO 3.03 K/uL (2.00-7.50); NEUTROPHILS PERCENT AUTO 57.2 % (45.0-70.0); PLATELET COUNT,PLT 132 K/uL (150-400); RED BLOOD CELL COUNT 2.67 M/uL (4.50-6.50); RED CELL DISTRIBUTION WIDTH 25.4 % (11.0-16.0); WHITE BLOOD CELL COUNT,WBC 5.3 K/uL (4.0-11.0)
[2022-09-23] MEDS: Lidocaine 5% 700 MG Patch TRDERM SCH (15:32)
[2022-09-23] MEDS: Warfarin 2 MG Tab PO SCH (17:32)
[2022-09-24] MEDS: Ferrous Sulfate 325 MG Tab PO SCH (07:18)
[2022-09-24] MEDS: Finasteride 5 MG Tab PO SCH (07:18)
[2022-09-24] MEDS: Levothyroxine 50 MCG Tab PO SCH (07:18)
[2022-09-24] MEDS: Bumetanide 2.5 MG/10 ML MDV IVPUSH SCH ×2 (07:18→19:11)
[2022-09-24] MEDS: Potassium Chloride 20 MEQ Tab.ER PO SCH ×2 (07:18→19:10)
[2022-09-24] MEDS: Metolazone 5 MG Tab PO SCH (07:20)
[2022-09-24] MEDS: Lidocaine 5% 700 MG Patch TRDERM SCH (17:24)
[2022-09-24] MEDS: Warfarin 2 MG Tab PO SCH (17:26)
[2022-09-25 05:10] LABS: HBSAG SCREEN Negative (Negative); HCV AB Non Reactive (Non Reactive); HEP A AB, IGM Negative (Negative); HEP B CORE AB, IGM Negative (Negative)
[2022-09-25] MEDS: Bumetanide 2.5 MG/10 ML MDV IVPUSH SCH ×2 (07:49→19:32)
[2022-09-25] MEDS: Ferrous Sulfate 325 MG Tab PO SCH (07:49)
[2022-09-25] MEDS: Levothyroxine 50 MCG Tab PO SCH (07:49)
[2022-09-25] MEDS: Finasteride 5 MG Tab PO SCH (07:50)
[2022-09-25] MEDS: Potassium Chloride 20 MEQ Tab.ER PO SCH ×2 (07:50→19:32)
[2022-09-25] MEDS: Lidocaine 5% 700 MG Patch TRDERM SCH (16:59)
[2022-09-25] MEDS: Warfarin 2 MG Tab PO SCH (18:07)
[2022-09-26] MEDS: Finasteride 5 MG Tab PO SCH (07:45)
[2022-09-26] MEDS: Potassium Chloride 20 MEQ Tab.ER PO SCH ×2 (07:45→20:16)
[2022-09-26] MEDS: Ferrous Sulfate 325 MG Tab PO SCH (07:45)
[2022-09-26] MEDS: Levothyroxine 50 MCG Tab PO SCH (07:45)
[2022-09-26] MEDS: Bumetanide 2.5 MG/10 ML MDV IVPUSH SCH ×2 (07:45→20:16)
[2022-09-26] MEDS: Metolazone 5 MG Tab PO SCH (07:46)
[2022-09-26] MEDS: Lidocaine 5% 700 MG Patch TRDERM SCH (16:09)
[2022-09-26] MEDS: Warfarin 2 MG Tab PO SCH (17:46)
[2022-09-27] MEDS: Ferrous Sulfate 325 MG Tab PO SCH (07:53)
[2022-09-27] MEDS: Finasteride 5 MG Tab PO SCH (07:53)
[2022-09-27] MEDS: Potassium Chloride 20 MEQ Tab.ER PO SCH (07:53)
[2022-09-27] MEDS: Levothyroxine 50 MCG Tab PO SCH (07:53)
[2022-09-27] MEDS: Bumetanide 2.5 MG/10 ML MDV IVPUSH SCH (07:53)
[2022-09-27 09:49] LABS: ANION GAP 8.9 mmol/L (5.0-15.0); BUN/CREATININE RATIO 25.2 (6-25); CALCIUM 9.2 mg/dL (8.5-10.1); CARBON DIOXIDE,CO2 35.2 mmol/L (21.0-32.0); CREATININE 1.35 mg/dL (0.70-1.30); EST CRCL DRUG DOSING (CG) 44.88 mL/min; POTASSIUM,K 4.1 mmol/L (3.5-5.1)
[2022-09-27 10:37] VITALS: BP 124/49; PULSE 71
== END 2022-09-27 11:05 | disposition home or self-care (01) | DRG 690 ==
LOC: LB.ED 07:43 → LB.MS 10:05
PROVIDERS: ADMIT Surgery; ATTEND Surgery
DX: N39.0 Urinary tract infection, site not specified (principal); A41.50 Gram-negative sepsis, unspecified; R60.1 Generalized edema; I48.91 Unspecified atrial fibrillation; I11.0 Hypertensive heart disease with heart failure; I50.9 Heart failure, unspecified; M54.50 Low back pain, unspecified; K59.00 Constipation, unspecified; E87.70 Fluid overload, unspecified; D64.9 Anemia, unspecified; Z95.2 Presence of prosthetic heart valve; E03.9 Hypothyroidism, unspecified; K21.9 Gastro-esophageal reflux disease without esophagitis; E05.90 Thyrotoxicosis, unspecified without thyrotoxic crisis or storm; Z89.612 Acquired absence of left leg above knee; Z88.8 Allergy status to other drugs, medicaments and biological substances; Z79.01 Long term (current) use of anticoagulants; Z79.899 Other long term (current) drug therapy; Z86.718 Personal history of other venous thrombosis and embolism
CPT/HCPCS: 36415; 71045; 72131; 73030-LT; 73060-LT; 80048; 80053; 80074; 81001; 83605; 83735; 83880; 84100; 85025; 85027; 85610; 87040; 87086; 93005; 93010; 96374; 96375; 99285-25; A0425; A0429; A9270-GY; J1956; J2270; J3480; J3490; J7030

== ENCOUNTER 2023-03-06 14:10 | Inpatient (IN) | payer MEDICARE ==
[2023-03-06] MEDS ORDERED: Ketorolac 30 MG/ML SDV IVPUSH ONE (15:36)
[2023-03-06] MEDS ORDERED: Bumetanide 1 MG/4 ML MDV IVPUSH ONE (15:37)
[2023-03-06] MEDS ORDERED: Ketorolac 30 MG/ML SDV ONE (15:44)
[2023-03-06] MEDS ORDERED: Bumetanide 1 MG/4 ML MDV ONE (15:44)
[2023-03-06] MEDS ORDERED: TURMERIC 1 GM PO SCH (17:45)
[2023-03-06] MEDS: Potassium Chloride 20 MEQ Tab.ER PO SCH (20:03)
[2023-03-06] MEDS: Warfarin 3 MG Tab PO SCH (20:03)
[2023-03-06] MEDS: HYDROmorphone 2 MG Tab PO PRN (20:25)
[2023-03-07] MEDS ORDERED: Furosemide 40 MG Tab PO SCH (08:00)
[2023-03-07] MEDS: Fish Oil/Omega-3 Fatty Acids 1 Gm Cap PO SCH (08:12)
[2023-03-07 08:13] LABS: ANION GAP 11.1 mmol/L (5.0-15.0); BUN/CREATININE RATIO 27.6 (6-25); CALCIUM 8.7 mg/dL (8.5-10.1); CARBON DIOXIDE,CO2 28.9 mmol/L (21.0-32.0); CREATININE 1.23 mg/dL (0.70-1.30); EST CRCL DRUG DOSING (CG) 49.26 mL/min
[2023-03-07] MEDS: Potassium Chloride 20 MEQ Tab.ER PO SCH (08:13)
[2023-03-07] MEDS: Ferrous Sulfate 325 MG Tab PO SCH (08:13)
[2023-03-07] MEDS: Zinc (Zinc Gluconate) 50 MG Tab PO SCH (08:13)
[2023-03-07] MEDS: Finasteride 5 MG Tab PO SCH (08:14)
[2023-03-07] MEDS: Levothyroxine 50 MCG Tab PO SCH (08:15)
[2023-03-07] MEDS: traMADol 50 MG Tab PO PRN ×2 (10:11→18:44)
[2023-03-07] MEDS ORDERED: Bumetanide 2.5 MG/10 ML MDV IVPUSH SCH (10:15)
[2023-03-07] MEDS: Bumetanide 2.5 MG/10 ML MDV IVPUSH SCH (15:47)
[2023-03-07] MEDS: Spironolactone 25 MG Tab PO SCH (15:47)
[2023-03-07] MEDS: Warfarin 4 MG Tab PO SCH (18:44)
[2023-03-08] MEDS: HYDROmorphone 2 MG Tab PO PRN ×2 (01:00→20:01)
[2023-03-08] MEDS: traMADol 50 MG Tab PO PRN ×2 (02:10→07:57)
[2023-03-08] MEDS: Bumetanide 2.5 MG/10 ML MDV IVPUSH SCH ×2 (03:00→15:32)
[2023-03-08] MEDS ORDERED: HYDROmorphone 2 MG/ML Syringe IVPUSH ONE (03:08)
[2023-03-08] MEDS: Ferrous Sulfate 325 MG Tab PO SCH (07:47)
[2023-03-08] MEDS: Levothyroxine 50 MCG Tab PO SCH (07:47)
[2023-03-08] MEDS: Spironolactone 25 MG Tab PO SCH (07:48)
[2023-03-08] MEDS: Finasteride 5 MG Tab PO SCH (07:48)
[2023-03-08] MEDS: Zinc (Zinc Gluconate) 50 MG Tab PO SCH (07:48)
[2023-03-08] MEDS: Fish Oil/Omega-3 Fatty Acids 1 Gm Cap PO SCH (07:48)
[2023-03-08 08:36] LABS: ANION GAP 12.9 mmol/L (5.0-15.0); BUN/CREATININE RATIO 28.6 (6-25); CALCIUM 8.8 mg/dL (8.5-10.1); CARBON DIOXIDE,CO2 28.1 mmol/L (21.0-32.0); CREATININE 1.19 mg/dL (0.70-1.30); EST CRCL DRUG DOSING (CG) 50.92 mL/min
[2023-03-08] MEDS ORDERED: Ketorolac 60 MG/2 ML SDV IVPUSH PRN (10:54)
[2023-03-08] MEDS ORDERED: Ketorolac 30 MG/ML SDV IVPUSH PRN (11:22)
[2023-03-08 11:35] LABS: INR 3.4 (1.0-3.5)
[2023-03-08] MEDS ORDERED: Ketorolac 30 MG/ML SDV ONE (11:43)
[2023-03-08] MEDS: Ketorolac 30 MG/ML SDV IVPUSH PRN (11:48)
[2023-03-08] MEDS: Cyclobenzaprine 5 MG Tab PO SCH ×2 (11:48→20:01)
[2023-03-09] MEDS: Bumetanide 2.5 MG/10 ML MDV IVPUSH SCH ×2 (03:04→15:15)
[2023-03-09] MEDS: Zinc (Zinc Gluconate) 50 MG Tab PO SCH (08:05)
[2023-03-09] MEDS: Levothyroxine 50 MCG Tab PO SCH (08:05)
[2023-03-09] MEDS: Fish Oil/Omega-3 Fatty Acids 1 Gm Cap PO SCH (08:05)
[2023-03-09] MEDS: Cyclobenzaprine 5 MG Tab PO SCH ×2 (08:05→19:37)
[2023-03-09] MEDS: Ferrous Sulfate 325 MG Tab PO SCH (08:05)
[2023-03-09] MEDS: Spironolactone 25 MG Tab PO SCH (08:06)
[2023-03-09] MEDS: Finasteride 5 MG Tab PO SCH (08:06)
[2023-03-09] MEDS: HYDROmorphone 2 MG Tab PO PRN ×2 (12:51→19:37)
[2023-03-09 14:16] LABS: APPEARANCE,URINE CLEAR (CLEAR); BILIRUBIN,URINE NEGATIVE (NEGATIVE); COLOR,URINE YELLOW; GLUCOSE,URINE NEGATIVE (NEGATIVE); KETONES,URINE NEGATIVE (NEGATIVE); LEUKOCYTE ESTERASE,URINE NEGATIVE (NEGATIVE); NITRITE,URINE NEGATIVE (NEGATIVE); OCCULT BLOOD,URINE NEGATIVE (NEGATIVE); PH,URINE 5.5 (5.0-8.0); PROTEIN,URINE NEGATIVE (NEGATIVE); UROBILINOGEN,URINE 0.2 E.U./dL (0.2-1.0)
[2023-03-09] MEDS ORDERED: Calcium Carbonate 500 MG Tab.Chew PO PRN (15:24)
[2023-03-09] MEDS: Warfarin 3 MG Tab PO SCH (18:17)
[2023-03-09] MEDS: Omeprazole 20 MG Cap.CR PO SCH (19:37)
[2023-03-10] MEDS: Bumetanide 2.5 MG/10 ML MDV IVPUSH SCH (03:15)
[2023-03-10] MEDS: Zinc (Zinc Gluconate) 50 MG Tab PO SCH (07:53)
[2023-03-10] MEDS: Ferrous Sulfate 325 MG Tab PO SCH (07:53)
[2023-03-10] MEDS: Cyclobenzaprine 5 MG Tab PO SCH ×2 (07:53→19:54)
[2023-03-10] MEDS: Finasteride 5 MG Tab PO SCH (07:54)
[2023-03-10] MEDS: Fish Oil/Omega-3 Fatty Acids 1 Gm Cap PO SCH (07:54)
[2023-03-10] MEDS: Levothyroxine 50 MCG Tab PO SCH (07:54)
[2023-03-10] MEDS: Spironolactone 25 MG Tab PO SCH (07:54)
[2023-03-10 09:03] LABS: ANION GAP 13.3 mmol/L (5.0-15.0); BUN/CREATININE RATIO 43.4 (6-25); CALCIUM 9.4 mg/dL (8.5-10.1); CARBON DIOXIDE,CO2 28.1 mmol/L (21.0-32.0); CREATININE 1.43 mg/dL (0.70-1.30); EST CRCL DRUG DOSING (CG) 42.37 mL/min; POTASSIUM,K 5.4 mmol/L (3.5-5.1)
[2023-03-10] MEDS: Bisacodyl 5 MG Tab PO SCH (10:01)
[2023-03-10] MEDS: Docusate Sodium 100 MG Cap PO SCH ×2 (10:01→19:54)
[2023-03-10] MEDS: traMADol 50 MG Tab PO PRN (11:38)
[2023-03-10] MEDS: Bumetanide 1 MG Tab PO SCH (16:32)
[2023-03-10] MEDS ORDERED: Phytonadione 5 MG Tab PO ONE (17:49)
[2023-03-10] MEDS: Warfarin 4 MG Tab PO SCH (17:51)
[2023-03-10] MEDS: Ketorolac 30 MG/ML SDV IVPUSH PRN (19:54)
[2023-03-10] MEDS: Omeprazole 20 MG Cap.CR PO SCH (19:54)
[2023-03-11] MEDS ORDERED: Bisacodyl 5 MG Tab ONE (07:10)
[2023-03-11] MEDS: Ferrous Sulfate 325 MG Tab PO SCH (07:20)
[2023-03-11] MEDS: traMADol 50 MG Tab PO PRN (07:20)
[2023-03-11] MEDS: Levothyroxine 50 MCG Tab PO SCH (07:21)
[2023-03-11] MEDS: Fish Oil/Omega-3 Fatty Acids 1 Gm Cap PO SCH (07:21)
[2023-03-11] MEDS: Docusate Sodium 100 MG Cap PO SCH ×2 (07:21→20:12)
[2023-03-11] MEDS: Finasteride 5 MG Tab PO SCH (07:21)
[2023-03-11] MEDS: Bumetanide 1 MG Tab PO SCH ×2 (07:21→16:58)
[2023-03-11] MEDS: Bisacodyl 5 MG Tab PO SCH (07:21)
[2023-03-11] MEDS: Cyclobenzaprine 5 MG Tab PO SCH ×2 (07:21→20:12)
[2023-03-11] MEDS: Zinc (Zinc Gluconate) 50 MG Tab PO SCH (07:21)
[2023-03-11] MEDS: Spironolactone 25 MG Tab PO SCH (07:21)
[2023-03-11 09:34] LABS: ANION GAP 11.4 mmol/L (5.0-15.0); BUN/CREATININE RATIO 48.5 (6-25); CALCIUM 9.1 mg/dL (8.5-10.1); CARBON DIOXIDE,CO2 27.9 mmol/L (21.0-32.0); CREATININE 1.34 mg/dL (0.70-1.30); EST CRCL DRUG DOSING (CG) 45.22 mL/min; POTASSIUM,K 5.3 mmol/L (3.5-5.1)
[2023-03-11 09:56] LABS: INR 2.3 (1.0-3.5)
[2023-03-11 09:59] LABS: PROTHROMBIN TIME 22.9 sec (9.0-11.5)
[2023-03-11] MEDS ORDERED: Warfarin 2 MG Tab PO ONE (17:57)
[2023-03-11] MEDS: Warfarin 3 MG Tab PO SCH (18:13)
[2023-03-11] MEDS: Omeprazole 20 MG Cap.CR PO SCH (20:12)
[2023-03-11] MEDS: Ketorolac 30 MG/ML SDV IVPUSH PRN (20:12)
[2023-03-12 08:16] LABS: ANION GAP 12.9 mmol/L (5.0-15.0); BUN/CREATININE RATIO 49.6 (6-25); CARBON DIOXIDE,CO2 28.6 mmol/L (21.0-32.0); CREATININE 1.41 mg/dL (0.70-1.30); EST CRCL DRUG DOSING (CG) 42.97 mL/min; POTASSIUM,K 4.5 mmol/L (3.5-5.1)
[2023-03-12 08:22] LABS: INR 1.5 (1.0-3.5)
[2023-03-12] MEDS: Spironolactone 25 MG Tab PO SCH (08:22)
[2023-03-12] MEDS: Levothyroxine 50 MCG Tab PO SCH (08:23)
[2023-03-12] MEDS: Docusate Sodium 100 MG Cap PO SCH ×2 (08:23→19:24)
[2023-03-12] MEDS: Bisacodyl 5 MG Tab PO SCH (08:23)
[2023-03-12 08:24] LABS: PROTHROMBIN TIME 15.5 sec (9.0-11.5)
[2023-03-12] MEDS: Cyclobenzaprine 5 MG Tab PO SCH ×2 (08:24→19:24)
[2023-03-12] MEDS: Fish Oil/Omega-3 Fatty Acids 1 Gm Cap PO SCH (08:24)
[2023-03-12] MEDS: Finasteride 5 MG Tab PO SCH (08:24)
[2023-03-12] MEDS: Bumetanide 1 MG Tab PO SCH ×2 (08:24→16:44)
[2023-03-12] MEDS: Ferrous Sulfate 325 MG Tab PO SCH (08:24)
[2023-03-12] MEDS: Zinc (Zinc Gluconate) 50 MG Tab PO SCH (08:24)
[2023-03-12] MEDS: Warfarin 4 MG Tab PO SCH (17:44)
[2023-03-12] MEDS: traMADol 50 MG Tab PO PRN ×2 (17:46→22:00)
[2023-03-12] MEDS: Omeprazole 20 MG Cap.CR PO SCH (19:24)
[2023-03-13] MEDS: Zinc (Zinc Gluconate) 50 MG Tab PO SCH (07:41)
[2023-03-13] MEDS: Docusate Sodium 100 MG Cap PO SCH ×2 (07:41→19:33)
[2023-03-13] MEDS: Finasteride 5 MG Tab PO SCH (07:41)
[2023-03-13] MEDS: Ferrous Sulfate 325 MG Tab PO SCH (07:41)
[2023-03-13] MEDS: Fish Oil/Omega-3 Fatty Acids 1 Gm Cap PO SCH (07:41)
[2023-03-13] MEDS: Bisacodyl 5 MG Tab PO SCH (07:41)
[2023-03-13] MEDS: Levothyroxine 50 MCG Tab PO SCH (07:42)
[2023-03-13] MEDS: Bumetanide 1 MG Tab PO SCH ×2 (07:42→17:56)
[2023-03-13] MEDS: Spironolactone 25 MG Tab PO SCH (07:42)
[2023-03-13] MEDS: Cyclobenzaprine 5 MG Tab PO SCH ×2 (07:42→19:34)
[2023-03-13 08:13] LABS: ANION GAP 14.2 mmol/L (5.0-15.0); BUN/CREATININE RATIO 44.6 (6-25); CALCIUM 9.3 mg/dL (8.5-10.1); CARBON DIOXIDE,CO2 27.4 mmol/L (21.0-32.0); CREATININE 1.48 mg/dL (0.70-1.30); EST CRCL DRUG DOSING (CG) 40.94 mL/min; POTASSIUM,K 4.6 mmol/L (3.5-5.1)
[2023-03-13 08:19] LABS: INR 1.4 (1.0-3.5)
[2023-03-13 08:22] LABS: PROTHROMBIN TIME 14.1 sec (9.0-11.5)
[2023-03-13] MEDS ORDERED: Enoxaparin 80 MG/0.8 ML Syringe SUBCUT ONE (09:44)
[2023-03-13] MEDS: HYDROmorphone 2 MG Tab PO PRN (09:59)
[2023-03-13] MEDS ORDERED: fentaNYL 12 MCG/HR Transdermal Patch TRDERM SCH (11:30)
[2023-03-13] MEDS ORDERED: Warfarin 3 MG Tab PO SCH (18:00)
[2023-03-13] MEDS: Omeprazole 20 MG Cap.CR PO SCH (19:33)
[2023-03-13] MEDS: traMADol 50 MG Tab PO PRN (19:34)
[2023-03-14] MEDS: Bisacodyl 5 MG Tab PO SCH (07:36)
[2023-03-14] MEDS: Fish Oil/Omega-3 Fatty Acids 1 Gm Cap PO SCH (07:36)
[2023-03-14] MEDS: Ferrous Sulfate 325 MG Tab PO SCH (07:37)
[2023-03-14] MEDS: Cyclobenzaprine 5 MG Tab PO SCH (07:37)
[2023-03-14] MEDS: Docusate Sodium 100 MG Cap PO SCH (07:37)
[2023-03-14] MEDS: Zinc (Zinc Gluconate) 50 MG Tab PO SCH (07:37)
[2023-03-14] MEDS: Levothyroxine 50 MCG Tab PO SCH (07:38)
[2023-03-14] MEDS: Bumetanide 1 MG Tab PO SCH ×2 (07:38→15:56)
[2023-03-14] MEDS: Spironolactone 25 MG Tab PO SCH (07:39)
[2023-03-14] MEDS: Finasteride 5 MG Tab PO SCH (07:39)
[2023-03-14 08:34] LABS: INR 1.5 (1.0-3.5)
[2023-03-14 08:39] LABS: PROTHROMBIN TIME 15.7 sec (9.0-11.5)
[2023-03-14] MEDS: traMADol 50 MG Tab PO PRN (08:43)
[2023-03-14 08:48] LABS: ANION GAP 12.5 mmol/L (5.0-15.0); BUN/CREATININE RATIO 44.4 (6-25); CALCIUM 9.2 mg/dL (8.5-10.1); CREATININE 1.51 mg/dL (0.70-1.30); EST CRCL DRUG DOSING (CG) 40.13 mL/min; POTASSIUM,K 4.5 mmol/L (3.5-5.1)
[2023-03-14] MEDS ORDERED: Digoxin 250 MCG Tab PO SCH (14:15)
[2023-03-15] MEDS ORDERED: Digoxin 250 MCG Tab PO SCH (08:00)
== END 2023-03-14 14:45 | disposition swing bed (61) | DRG 684 ==
LOC: LB.ED 14:10 → LB.MS 16:56
PROVIDERS: ADMIT Surgery; ATTEND Emergency Medicine
DX: S49.91XA Unspecified injury of right shoulder and upper arm, initial encounter (principal); S59.901A Unspecified injury of right elbow, initial encounter; N17.9 Acute kidney failure, unspecified; I50.82 Biventricular heart failure; I50.9 Heart failure, unspecified; I11.0 Hypertensive heart disease with heart failure; R60.1 Generalized edema; K21.9 Gastro-esophageal reflux disease without esophagitis; I48.91 Unspecified atrial fibrillation; G89.29 Other chronic pain; W18.11XA Fall from or off toilet without subsequent striking against object, initial encounter; Y92.002 Bathroom of unspecified non-institutional (private) residence as the place of occurrence of the external cause; M25.511 Pain in right shoulder; R73.09 Other abnormal glucose; S40.011A Contusion of right shoulder, initial encounter; W18.30XA Fall on same level, unspecified, initial encounter; E87.5 Hyperkalemia; Y92.89 Other specified places as the place of occurrence of the external cause; R94.5 Abnormal results of liver function studies; E55.9 Vitamin D deficiency, unspecified; D64.9 Anemia, unspecified; Z95.2 Presence of prosthetic heart valve; Z89.512 Acquired absence of left leg below knee; E03.9 Hypothyroidism, unspecified; Z88.8 Allergy status to other drugs, medicaments and biological substances; Z79.899 Other long term (current) drug therapy; Z79.01 Long term (current) use of anticoagulants; Z86.718 Personal history of other venous thrombosis and embolism
CPT/HCPCS: 36415; 73030-RT; 73080-RT; 73200-RT; 80048; 80053; 81003; 82306; 82728; 83036; 83540; 83550; 84439; 84443; 84481; 85025; 85610; 86141; 96374; 96375; 97162-GP; 99222; 99232; 99284-25; A9270-GY; J1170; J1650; J1885; J3490

== ENCOUNTER 2023-03-14 14:45 | Inpatient (IN) | payer MEDICARE ==
[2023-03-14] MEDS ORDERED: Bumetanide 1 MG Tab PO SCH (16:00)
[2023-03-14] MEDS ORDERED: Warfarin 3 MG Tab PO SCH (18:00)
[2023-03-14] MEDS: Cyclobenzaprine 5 MG Tab PO SCH (19:21)
[2023-03-14] MEDS: Docusate Sodium 100 MG Cap PO SCH (19:21)
[2023-03-14] MEDS: traMADol 50 MG Tab PO PRN (19:21)
[2023-03-14] MEDS: Omeprazole 20 MG Cap.CR PO SCH (19:21)
[2023-03-14] MEDS ORDERED: Tuberculin, PPD 5 Units/0.1 ML 1 ML MDV IDERM SCH (20:00)
[2023-03-15] MEDS ORDERED: Digoxin 250 MCG Tab PO SCH (08:00)
[2023-03-15] MEDS: Docusate Sodium 100 MG Cap PO SCH ×2 (08:01→19:41)
[2023-03-15] MEDS: Zinc (Zinc Gluconate) 50 MG Tab PO SCH (08:02)
[2023-03-15] MEDS: Bumetanide 1 MG Tab PO SCH ×2 (08:02→16:09)
[2023-03-15] MEDS: Fish Oil/Omega-3 Fatty Acids 1 Gm Cap PO SCH (08:03)
[2023-03-15] MEDS: Levothyroxine 50 MCG Tab PO SCH (08:03)
[2023-03-15] MEDS: Bisacodyl 5 MG Tab PO SCH (08:03)
[2023-03-15] MEDS: Ferrous Sulfate 325 MG Tab PO SCH (08:04)
[2023-03-15] MEDS: Spironolactone 25 MG Tab PO SCH (08:04)
[2023-03-15] MEDS: traMADol 50 MG Tab PO PRN ×2 (08:04→14:27)
[2023-03-15] MEDS: Cyclobenzaprine 5 MG Tab PO SCH ×2 (08:04→19:42)
[2023-03-15] MEDS: Finasteride 5 MG Tab PO SCH (08:05)
[2023-03-15] MEDS: Digoxin 125 MCG Tab PO SCH (08:21)
[2023-03-15 08:40] LABS: INR 1.8 (1.0-3.5)
[2023-03-15 08:46] LABS: A/G RATIO 0.6 (0.8-2.0); ALBUMIN 2.5 g/dL (3.4-5.0); ANION GAP 10.6 mmol/L (5.0-15.0); BILIRUBIN TOTAL 1.9 mg/dL (0.0-1.0); BUN/CREATININE RATIO 37.3 (6-25); CREATININE 1.53 mg/dL (0.70-1.30); EST CRCL DRUG DOSING (CG) 39.6 mL/min; POTASSIUM,K 4.6 mmol/L (3.5-5.1); PROTEIN TOTAL,TP 6.8 g/dL (6.4-8.2); PROTHROMBIN TIME 18.4 sec (9.0-11.5)
[2023-03-15] MEDS: Warfarin 3 MG Tab PO SCH (17:12)
[2023-03-15] MEDS: Omeprazole 20 MG Cap.CR PO SCH (19:42)
[2023-03-16] MEDS: Docusate Sodium 100 MG Cap PO SCH ×2 (07:40→19:34)
[2023-03-16] MEDS: Fish Oil/Omega-3 Fatty Acids 1 Gm Cap PO SCH (07:40)
[2023-03-16] MEDS: Zinc (Zinc Gluconate) 50 MG Tab PO SCH (07:41)
[2023-03-16] MEDS: Ferrous Sulfate 325 MG Tab PO SCH (07:41)
[2023-03-16] MEDS: Bumetanide 1 MG Tab PO SCH (07:41)
[2023-03-16] MEDS: Cyclobenzaprine 5 MG Tab PO SCH ×2 (07:41→19:34)
[2023-03-16] MEDS: Finasteride 5 MG Tab PO SCH (07:42)
[2023-03-16] MEDS: Levothyroxine 50 MCG Tab PO SCH (07:42)
[2023-03-16] MEDS: Bisacodyl 5 MG Tab PO SCH (07:42)
[2023-03-16] MEDS: Spironolactone 25 MG Tab PO SCH (07:42)
[2023-03-16 07:57] LABS: BUN/CREATININE RATIO 36.9 (6-25); CARBON DIOXIDE,CO2 27.5 mmol/L (21.0-32.0); CREATININE 1.49 mg/dL (0.70-1.30); EST CRCL DRUG DOSING (CG) 40.67 mL/min; POTASSIUM,K 4.5 mmol/L (3.5-5.1)
[2023-03-16 07:59] LABS: INR 2.3 (1.0-3.5)
[2023-03-16 08:00] LABS: PROTHROMBIN TIME 22.6 sec (9.0-11.5)
[2023-03-16] MEDS: Digoxin 125 MCG Tab PO SCH (11:01)
[2023-03-16] MEDS: fentaNYL 12 MCG/HR Transdermal Patch TRDERM SCH (11:02)
[2023-03-16] MEDS ORDERED: Levothyroxine 25 MCG Tab PO ONE (11:30)
[2023-03-16] MEDS ORDERED: Levothyroxine 50 MCG Tab PO ONE (11:34)
[2023-03-16] MEDS ORDERED: Bumetanide 1 MG Tab PO ONE (13:10)
[2023-03-16] MEDS ORDERED: Furosemide 40 MG Tab ONE (13:44)
[2023-03-16] MEDS ORDERED: Metolazone 5 MG Tab PO SCH (16:00)
[2023-03-16] MEDS: Furosemide 40 MG Tab PO SCH (16:07)
[2023-03-16] MEDS: Warfarin 3 MG Tab PO SCH (17:26)
[2023-03-16] MEDS: Omeprazole 20 MG Cap.CR PO SCH (19:34)
[2023-03-16] MEDS: atorvaSTATin 20 MG Tab PO SCH (19:34)
[2023-03-16] MEDS ORDERED: Carvedilol 3.125 MG Tab PO SCH (20:00)
[2023-03-17] MEDS ORDERED: Levothyroxine 75 MCG Tab PO SCH (07:00)
[2023-03-17] MEDS ORDERED: Bumetanide 2 MG Tab PO SCH (08:00)
[2023-03-17] MEDS ORDERED: Lisinopril 5 MG Tab PO SCH (08:00)
[2023-03-17 08:06] LABS: ANION GAP 12.7 mmol/L (5.0-15.0); BUN/CREATININE RATIO 32.5 (6-25); CALCIUM 8.8 mg/dL (8.5-10.1); CARBON DIOXIDE,CO2 26.9 mmol/L (21.0-32.0); CREATININE 1.54 mg/dL (0.70-1.30); EST CRCL DRUG DOSING (CG) 39.35 mL/min; POTASSIUM,K 4.6 mmol/L (3.5-5.1)
[2023-03-17] MEDS: Docusate Sodium 100 MG Cap PO SCH ×2 (08:06→20:04)
[2023-03-17] MEDS: Bisacodyl 5 MG Tab PO SCH (08:07)
[2023-03-17] MEDS: Zinc (Zinc Gluconate) 50 MG Tab PO SCH (08:07)
[2023-03-17] MEDS: Digoxin 125 MCG Tab PO SCH (08:07)
[2023-03-17] MEDS: Fish Oil/Omega-3 Fatty Acids 1 Gm Cap PO SCH (08:07)
[2023-03-17] MEDS: Spironolactone 25 MG Tab PO SCH (08:08)
[2023-03-17] MEDS: Levothyroxine 100 MCG Tab PO SCH (08:08)
[2023-03-17] MEDS: Cyclobenzaprine 5 MG Tab PO SCH ×2 (08:08→20:04)
[2023-03-17] MEDS: Ferrous Sulfate 325 MG Tab PO SCH (08:08)
[2023-03-17] MEDS: Finasteride 5 MG Tab PO SCH (08:09)
[2023-03-17] MEDS: Furosemide 40 MG Tab PO SCH ×2 (08:09→15:38)
[2023-03-17 10:21] LABS: TSH W/RFLX FREE T4 9.29 mU/L (0.27-4.20)
[2023-03-17 10:41] LABS: THYROXINE FREE 1.3 ng/dL (0.9-1.7)
[2023-03-17] MEDS: Warfarin 3 MG Tab PO SCH (17:26)
[2023-03-17] MEDS: Omeprazole 20 MG Cap.CR PO SCH (20:04)
[2023-03-17] MEDS: atorvaSTATin 20 MG Tab PO SCH (20:04)
[2023-03-17] MEDS: traMADol 50 MG Tab PO PRN (20:06)
[2023-03-18] MEDS: Spironolactone 25 MG Tab PO SCH (07:20)
[2023-03-18] MEDS: Fish Oil/Omega-3 Fatty Acids 1 Gm Cap PO SCH (07:20)
[2023-03-18] MEDS: Ferrous Sulfate 325 MG Tab PO SCH (07:21)
[2023-03-18] MEDS: Zinc (Zinc Gluconate) 50 MG Tab PO SCH (07:21)
[2023-03-18] MEDS: Bumetanide 1 MG Tab PO SCH (07:22)
[2023-03-18] MEDS: Digoxin 125 MCG Tab PO SCH (07:22)
[2023-03-18] MEDS: Levothyroxine 100 MCG Tab PO SCH (07:22)
[2023-03-18] MEDS: Cyclobenzaprine 5 MG Tab PO SCH ×2 (07:22→19:27)
[2023-03-18] MEDS: Bisacodyl 5 MG Tab PO SCH (07:23)
[2023-03-18] MEDS: Finasteride 5 MG Tab PO SCH (07:23)
[2023-03-18] MEDS: Furosemide 40 MG Tab PO SCH ×2 (07:23→16:49)
[2023-03-18] MEDS: Docusate Sodium 100 MG Cap PO SCH ×2 (07:24→19:28)
[2023-03-18 08:16] LABS: BUN/CREATININE RATIO 28.5 (6-25); CALCIUM 8.9 mg/dL (8.5-10.1); CARBON DIOXIDE,CO2 26.4 mmol/L (21.0-32.0); CREATININE 1.65 mg/dL (0.70-1.30); EST CRCL DRUG DOSING (CG) 36.72 mL/min; POTASSIUM,K 4.4 mmol/L (3.5-5.1)
[2023-03-18 10:12] LABS: INR 2.6 (1.0-3.5)
[2023-03-18 10:21] LABS: PROTHROMBIN TIME 26.1 sec (9.0-11.5)
[2023-03-18] MEDS: traMADol 50 MG Tab PO PRN (17:44)
[2023-03-18] MEDS: Warfarin 3 MG Tab PO SCH (17:44)
[2023-03-18] MEDS: Omeprazole 20 MG Cap.CR PO SCH (19:27)
[2023-03-18] MEDS: atorvaSTATin 20 MG Tab PO SCH (19:28)
[2023-03-19] MEDS: traMADol 50 MG Tab PO PRN ×3 (00:28→18:14)
[2023-03-19] MEDS: Fish Oil/Omega-3 Fatty Acids 1 Gm Cap PO SCH (07:21)
[2023-03-19] MEDS: Zinc (Zinc Gluconate) 50 MG Tab PO SCH (07:21)
[2023-03-19] MEDS: Ferrous Sulfate 325 MG Tab PO SCH (07:21)
[2023-03-19] MEDS: Bisacodyl 5 MG Tab PO SCH (07:21)
[2023-03-19] MEDS: Bumetanide 1 MG Tab PO SCH (07:21)
[2023-03-19] MEDS: Furosemide 40 MG Tab PO SCH ×2 (07:21→16:46)
[2023-03-19] MEDS: Cyclobenzaprine 5 MG Tab PO SCH ×2 (07:21→19:25)
[2023-03-19] MEDS: Digoxin 125 MCG Tab PO SCH (07:21)
[2023-03-19] MEDS: Finasteride 5 MG Tab PO SCH (07:21)
[2023-03-19] MEDS: Docusate Sodium 100 MG Cap PO SCH ×2 (07:21→19:25)
[2023-03-19] MEDS: Levothyroxine 100 MCG Tab PO SCH (07:21)
[2023-03-19] MEDS: Spironolactone 25 MG Tab PO SCH (07:21)
[2023-03-19 08:14] LABS: BUN/CREATININE RATIO 28.7 (6-25); CARBON DIOXIDE,CO2 27.5 mmol/L (21.0-32.0); CREATININE 1.67 mg/dL (0.70-1.30); EST CRCL DRUG DOSING (CG) 36.28 mL/min; POTASSIUM,K 4.5 mmol/L (3.5-5.1)
[2023-03-19] MEDS: fentaNYL 12 MCG/HR Transdermal Patch TRDERM SCH (12:07)
[2023-03-19] MEDS: Warfarin 3 MG Tab PO SCH (17:19)
[2023-03-19] MEDS: atorvaSTATin 20 MG Tab PO SCH (19:25)
[2023-03-19] MEDS: Omeprazole 20 MG Cap.CR PO SCH (19:25)
[2023-03-20 08:15] LABS: ANION GAP 10.8 mmol/L (5.0-15.0); BUN/CREATININE RATIO 30.7 (6-25); CARBON DIOXIDE,CO2 30.6 mmol/L (21.0-32.0); CREATININE 1.66 mg/dL (0.70-1.30); EST CRCL DRUG DOSING (CG) 36.5 mL/min; POTASSIUM,K 4.4 mmol/L (3.5-5.1)
[2023-03-20] MEDS: Finasteride 5 MG Tab PO SCH (08:15)
[2023-03-20] MEDS: Zinc (Zinc Gluconate) 50 MG Tab PO SCH (08:15)
[2023-03-20] MEDS: Cyclobenzaprine 5 MG Tab PO SCH ×2 (08:15→19:39)
[2023-03-20] MEDS: Bisacodyl 5 MG Tab PO SCH (08:15)
[2023-03-20] MEDS: Fish Oil/Omega-3 Fatty Acids 1 Gm Cap PO SCH (08:15)
[2023-03-20] MEDS: Docusate Sodium 100 MG Cap PO SCH ×2 (08:15→19:39)
[2023-03-20] MEDS: Ferrous Sulfate 325 MG Tab PO SCH (08:15)
[2023-03-20] MEDS: Levothyroxine 100 MCG Tab PO SCH (08:15)
[2023-03-20] MEDS: Furosemide 40 MG Tab PO SCH ×2 (08:15→16:14)
[2023-03-20 08:16] LABS: INR 2.9 (1.0-3.5)
[2023-03-20 08:18] LABS: PROTHROMBIN TIME 28.4 sec (9.0-11.5)
[2023-03-20] MEDS: Digoxin 125 MCG Tab PO SCH (08:27)
[2023-03-20] MEDS: traMADol 50 MG Tab PO PRN ×2 (10:14→19:40)
[2023-03-20] MEDS: Warfarin 5 MG Tab PO SCH (18:06)
[2023-03-20] MEDS: atorvaSTATin 20 MG Tab PO SCH (19:39)
[2023-03-20] MEDS: Omeprazole 20 MG Cap.CR PO SCH (19:39)
[2023-03-21] MEDS: traMADol 50 MG Tab PO PRN ×2 (05:17→11:22)
[2023-03-21] MEDS: Finasteride 5 MG Tab PO SCH (07:06)
[2023-03-21] MEDS: Docusate Sodium 100 MG Cap PO SCH ×2 (07:32→20:53)
[2023-03-21] MEDS: Ferrous Sulfate 325 MG Tab PO SCH (07:32)
[2023-03-21] MEDS: Levothyroxine 100 MCG Tab PO SCH (07:32)
[2023-03-21] MEDS: Bisacodyl 5 MG Tab PO SCH (07:33)
[2023-03-21] MEDS: Digoxin 125 MCG Tab PO SCH (07:33)
[2023-03-21] MEDS: Zinc (Zinc Gluconate) 50 MG Tab PO SCH (07:33)
[2023-03-21] MEDS: Furosemide 40 MG Tab PO SCH ×2 (07:33→15:53)
[2023-03-21] MEDS: Fish Oil/Omega-3 Fatty Acids 1 Gm Cap PO SCH (07:33)
[2023-03-21] MEDS: Cyclobenzaprine 5 MG Tab PO SCH ×2 (07:33→20:53)
[2023-03-21] MEDS: Warfarin 5 MG Tab PO SCH (17:53)
[2023-03-21] MEDS: atorvaSTATin 20 MG Tab PO SCH (20:53)
[2023-03-21] MEDS: Omeprazole 20 MG Cap.CR PO SCH (20:53)
[2023-03-22 08:18] LABS: INR 3.7 (1.0-3.5)
[2023-03-22 08:29] LABS: PROTHROMBIN TIME 36.5 sec (9.0-11.5)
[2023-03-22] MEDS: Bisacodyl 5 MG Tab PO SCH (09:37)
[2023-03-22] MEDS: Fish Oil/Omega-3 Fatty Acids 1 Gm Cap PO SCH (09:37)
[2023-03-22] MEDS: Furosemide 40 MG Tab PO SCH ×2 (09:38→16:09)
[2023-03-22] MEDS: Digoxin 125 MCG Tab PO SCH (09:38)
[2023-03-22] MEDS: Cyclobenzaprine 5 MG Tab PO SCH ×2 (09:38→19:07)
[2023-03-22] MEDS: Finasteride 5 MG Tab PO SCH (09:38)
[2023-03-22] MEDS: Zinc (Zinc Gluconate) 50 MG Tab PO SCH (09:38)
[2023-03-22] MEDS: Docusate Sodium 100 MG Cap PO SCH ×2 (09:38→19:07)
[2023-03-22] MEDS: Ferrous Sulfate 325 MG Tab PO SCH (09:42)
[2023-03-22] MEDS: Levothyroxine 100 MCG Tab PO SCH (09:42)
[2023-03-22] MEDS: fentaNYL 12 MCG/HR Transdermal Patch TRDERM SCH (12:12)
[2023-03-22] MEDS: Warfarin 5 MG Tab PO SCH (17:21)
[2023-03-22] MEDS: atorvaSTATin 20 MG Tab PO SCH (19:06)
[2023-03-22] MEDS: Omeprazole 20 MG Cap.CR PO SCH (19:07)
[2023-03-22] MEDS: traMADol 50 MG Tab PO PRN (19:08)
[2023-03-23] MEDS: Docusate Sodium 100 MG Cap PO SCH ×2 (08:06→19:05)
[2023-03-23] MEDS: Levothyroxine 100 MCG Tab PO SCH (08:06)
[2023-03-23] MEDS: Furosemide 40 MG Tab PO SCH ×2 (08:07→15:39)
[2023-03-23] MEDS: Zinc (Zinc Gluconate) 50 MG Tab PO SCH (08:07)
[2023-03-23] MEDS: Ferrous Sulfate 325 MG Tab PO SCH (08:07)
[2023-03-23] MEDS: traMADol 50 MG Tab PO PRN (08:08)
[2023-03-23] MEDS: Bisacodyl 5 MG Tab PO SCH (08:08)
[2023-03-23] MEDS: Cyclobenzaprine 5 MG Tab PO SCH ×2 (08:08→19:05)
[2023-03-23] MEDS: Fish Oil/Omega-3 Fatty Acids 1 Gm Cap PO SCH (08:09)
[2023-03-23] MEDS: Finasteride 5 MG Tab PO SCH (08:09)
[2023-03-23] MEDS: Digoxin 125 MCG Tab PO SCH (08:10)
[2023-03-23] MEDS: atorvaSTATin 20 MG Tab PO SCH (19:04)
[2023-03-23] MEDS: Omeprazole 20 MG Cap.CR PO SCH (19:05)
[2023-03-23] MEDS: Warfarin 5 MG Tab PO SCH (19:06)
[2023-03-24] MEDS: traMADol 50 MG Tab PO PRN ×2 (01:15→20:21)
[2023-03-24] MEDS: Ferrous Sulfate 325 MG Tab PO SCH (07:20)
[2023-03-24] MEDS: Bisacodyl 5 MG Tab PO SCH (07:20)
[2023-03-24] MEDS: Levothyroxine 100 MCG Tab PO SCH (07:21)
[2023-03-24] MEDS: Zinc (Zinc Gluconate) 50 MG Tab PO SCH (07:21)
[2023-03-24] MEDS: Finasteride 5 MG Tab PO SCH (07:21)
[2023-03-24] MEDS: Fish Oil/Omega-3 Fatty Acids 1 Gm Cap PO SCH (07:21)
[2023-03-24] MEDS: Cyclobenzaprine 5 MG Tab PO SCH ×2 (07:21→20:22)
[2023-03-24] MEDS: Docusate Sodium 100 MG Cap PO SCH ×2 (07:22→20:22)
[2023-03-24] MEDS: Furosemide 40 MG Tab PO SCH ×2 (07:22→16:24)
[2023-03-24] MEDS: Digoxin 125 MCG Tab PO SCH (07:24)
[2023-03-24] MEDS: Omeprazole 20 MG Cap.CR PO SCH (20:23)
[2023-03-24] MEDS: atorvaSTATin 20 MG Tab PO SCH (20:23)
[2023-03-24] MEDS ORDERED: Calcium Carbonate 500 MG Tab.Chew ONE (21:58)
[2023-03-25] MEDS ORDERED: Calcium Carbonate 500 MG Tab.Chew PO PRN (01:55)
[2023-03-25] MEDS: Bisacodyl 5 MG Tab PO SCH (07:51)
[2023-03-25] MEDS: Docusate Sodium 100 MG Cap PO SCH (07:51)
[2023-03-25] MEDS: Finasteride 5 MG Tab PO SCH (08:00)
[2023-03-25] MEDS: Furosemide 40 MG Tab PO SCH (08:00)
[2023-03-25] MEDS: Zinc (Zinc Gluconate) 50 MG Tab PO SCH (08:01)
[2023-03-25] MEDS: Cyclobenzaprine 5 MG Tab PO SCH (08:01)
[2023-03-25] MEDS: Levothyroxine 100 MCG Tab PO SCH (08:01)
[2023-03-25] MEDS: Ferrous Sulfate 325 MG Tab PO SCH (08:01)
[2023-03-25] MEDS: Fish Oil/Omega-3 Fatty Acids 1 Gm Cap PO SCH (08:02)
[2023-03-25 08:10] LABS: MEAN CORPUSCULAR VOLUME 108 fL (76-96); RED BLOOD CELL COUNT 1.83 M/uL (4.50-6.50); WHITE BLOOD CELL COUNT,WBC 8.8 K/uL (4.0-11.0)
[2023-03-25 08:11] LABS: MEAN CORPUSCULAR HEMOGLOBIN 33.3 pg (27.0-32.0); MEAN CORPUSCULAR HGB CONC 30.8 g/dL (31.0-35.0); MEAN PLATELET VOLUME 10.9 fL (6.0-10.0); PLATELET COUNT,PLT 206 K/uL (150-400); RED CELL DISTRIBUTION WIDTH 23.1 % (11.0-16.0)
[2023-03-25 08:21] LABS: HEMATOCRIT 19.8 % (40.0-54.0); HEMOGLOBIN 6.1 g/dL (13.0-18.0)
[2023-03-25 08:44] LABS: PROTHROMBIN TIME 39.8 sec (9.0-11.5)
[2023-03-25 08:45] LABS: INR 4.1 (1.0-3.5)
[2023-03-25] MEDS ORDERED: Phytonadione 5 MG Tab PO ONE (09:20)
[2023-03-25] MEDS: Digoxin 125 MCG Tab PO SCH (10:32)
[2023-03-25 10:33] LABS: ANISOCYTOSIS MODERATE; POIKILOCYTOSIS OCCASIONAL
[2023-03-25 10:34] LABS: ELLIPTOCYTES OCCASIONAL; HYPOCHROMASIA FEW; STOMATOCYTES MODERATE; TARGET CELLS OCCASIONAL; TEARDROP CELLS OCCASIONAL
[2023-03-25 10:35] LABS: GIANT PLATELETS RARE; NRBC MANUAL 3; PLATELET COUNT ESTIMATE ADEQUATE
[2023-03-25] MEDS ORDERED: TURMERIC 1 GM PO SCH (11:31)
[2023-03-25] MEDS ORDERED: Potassium Chloride 20 MEQ Tab.ER PO SCH (20:00)
[2023-03-25] MEDS ORDERED: Furosemide 40 MG Tab PO SCH (20:00)
[2023-03-26] MEDS ORDERED: Ferrous Sulfate 325 MG Tab PO SCH (07:00)
[2023-03-26] MEDS ORDERED: Levothyroxine 50 MCG Tab PO SCH (07:00)
[2023-03-26] MEDS ORDERED: Non-Formulary Medication 1 Each (Omega-3 Fatty Acids [Fish Oil] 500 MG Capsule) PO SCH (08:00)
[2023-03-26] MEDS ORDERED: Non-Formulary Medication 1 Each (Zinc [Zinc] 50 MG Tablet) PO SCH (08:00)
[2023-03-26] MEDS ORDERED: Finasteride 5 MG Tab PO SCH (08:00)
== END 2023-03-25 12:03 | disposition critical access hospital (66) | DRG 293 ==
LOC: LB.MS 15:48 → UNDOADMIN 15:48
PROVIDERS: ADMIT Emergency Medicine; ATTEND Emergency Medicine
DX: I11.0 Hypertensive heart disease with heart failure (principal); M25.511 Pain in right shoulder; G89.29 Other chronic pain; E88.09 Other disorders of plasma-protein metabolism, not elsewhere classified; I48.91 Unspecified atrial fibrillation; K21.9 Gastro-esophageal reflux disease without esophagitis; I50.9 Heart failure, unspecified; E03.9 Hypothyroidism, unspecified; Z86.73 Personal history of transient ischemic attack (TIA), and cerebral infarction without residual deficits; Z88.8 Allergy status to other drugs, medicaments and biological substances; Z79.890 Hormone replacement therapy; Z89.512 Acquired absence of left leg below knee; Z79.01 Long term (current) use of anticoagulants; Z79.899 Other long term (current) drug therapy
CPT/HCPCS: 36415; 80048; 80053; 80162; 84439; 84443; 85025; 85610; 86580; 97110-GO; 97110-GP; 97165-GO; 97530-GO; 97530-GP; 99305; 99309; A9270-GY

== ENCOUNTER 2023-03-25 11:18 | Inpatient (IN) | payer MEDICARE ==
[2023-03-25] MEDS ORDERED: fentaNYL 12 MCG/HR Transdermal Patch TRDERM SCH (12:00)
[2023-03-25] MEDS ORDERED: Furosemide 40 MG Tab PO SCH (16:00)
[2023-03-25] MEDS ORDERED: Omeprazole 20 MG Cap.CR PO SCH (20:00)
[2023-03-25] MEDS ORDERED: Cyclobenzaprine 5 MG Tab PO SCH (20:00)
[2023-03-25] MEDS ORDERED: Potassium Chloride 20 MEQ Tab.ER PO SCH (20:00)
[2023-03-25] MEDS ORDERED: Docusate Sodium 100 MG Cap PO SCH (20:00)
[2023-03-25] MEDS ORDERED: Fish Oil/Omega-3 Fatty Acids 1 Gm Cap PO SCH (20:00)
[2023-03-25] MEDS ORDERED: atorvaSTATin 20 MG Tab PO SCH (20:00)
[2023-03-26] MEDS ORDERED: Ferrous Sulfate 325 MG Tab PO SCH (07:00)
[2023-03-26] MEDS ORDERED: Levothyroxine 50 MCG Tab PO SCH (07:00)
[2023-03-26] MEDS ORDERED: Finasteride 5 MG Tab PO SCH (08:00)
== END 2023-03-25 18:43 | DRG 379 ==
LOC: UNDOADMIN 12:04 → LB.MS 12:04
PROVIDERS: ADMIT Physician Assistant; ATTEND Physician Assistant
PROC: 30233N1 Transfusion of Nonautologous Red Blood Cells into Peripheral Vein, Percutaneous Approach (ICD-10-PCS; principal; 2023-03-25)
DX: K92.2 Gastrointestinal hemorrhage, unspecified (principal); D64.9 Anemia, unspecified
CPT/HCPCS: 36415; 36430; 86850; 86900; 86901; 86920; 86922; 99315; A9270-GY; P9016

== ENCOUNTER 2023-04-16 09:28 | Inpatient (IN) | payer MEDICARE ==
[2023-04-16] MEDS ORDERED: Acetaminophen 325 MG Tab PO PRN (14:17)
[2023-04-16] MEDS ORDERED: Bisacodyl 5 MG Tab PO PRN (14:22)
[2023-04-16] MEDS ORDERED: Polyethylene Glycol 3350 Powder 17 GM Packet PO PRN (14:23)
[2023-04-16] MEDS: Trolamine Salicylate/Aloe Vera 10% Crm 85 GM Tube TOP SCH ×2 (16:55→19:39)
[2023-04-16] MEDS: Midodrine 5 MG Tab PO SCH (16:56)
[2023-04-16] MEDS ORDERED: Warfarin 2 MG Tab PO SCH (18:00)
[2023-04-16] MEDS: Pantoprazole 40 MG Tab.CR PO SCH (19:40)
[2023-04-16] MEDS: Melatonin 3 MG Tab PO PRN (19:41)
[2023-04-16] MEDS: atorvaSTATin 20 MG Tab PO SCH (19:41)
[2023-04-16] MEDS: traMADol 50 MG Tab PO PRN (19:41)
[2023-04-17] MEDS: Furosemide 40 MG Tab PO SCH ×2 (07:52→13:31)
[2023-04-17] MEDS: Levothyroxine 100 MCG Tab PO SCH (07:52)
[2023-04-17] MEDS: Finasteride 5 MG Tab PO SCH (07:52)
[2023-04-17] MEDS: Metoprolol Succinate 25 MG Tab.ER PO SCH (07:52)
[2023-04-17] MEDS: Midodrine 5 MG Tab PO SCH ×3 (07:52→16:46)
[2023-04-17] MEDS: Ferrous Sulfate 325 MG Tab PO SCH (07:53)
[2023-04-17] MEDS: Pantoprazole 40 MG Tab.CR PO SCH ×2 (07:53→19:44)
[2023-04-17] MEDS: Trolamine Salicylate/Aloe Vera 10% Crm 85 GM Tube TOP SCH ×4 (07:53→19:43)
[2023-04-17] MEDS: Spironolactone 100 MG Tab PO SCH ×2 (07:53→13:32)
[2023-04-17 08:34] LABS: INR 2.6 (1.0-3.5)
[2023-04-17 08:36] LABS: PROTHROMBIN TIME 25.5 sec (9.0-11.5)
[2023-04-17 09:41] LABS: HEMATOCRIT 30.2 % (40.0-54.0); HEMOGLOBIN 9.6 g/dL (13.0-18.0); MEAN CORPUSCULAR HEMOGLOBIN 31.1 pg (27.0-32.0); MEAN CORPUSCULAR HGB CONC 31.8 g/dL (31.0-35.0); MEAN PLATELET VOLUME 11.1 fL (6.0-10.0); RED BLOOD CELL COUNT 3.09 M/uL (4.50-6.50); RED CELL DISTRIBUTION WIDTH 22.7 % (11.0-16.0); WHITE BLOOD CELL COUNT,WBC 6.6 K/uL (4.0-11.0)
[2023-04-17 09:44] LABS: ANION GAP 10.6 mmol/L (5.0-15.0); BLOOD UREA NITROGEN,BUN 25 mg/dL (8-26); BUN/CREATININE RATIO 19.2 (6-25); CALCIUM 8.4 mg/dL (8.5-10.1); CARBON DIOXIDE,CO2 25.9 mmol/L (21.0-32.0); CHLORIDE,CL 99 mmol/L (98-107); ESTIMATED GFR 58 mL/min (>60); GLUCOSE RANDOM 96 mg/dL (74-100); POTASSIUM,K 4.5 mmol/L (3.5-5.1); SODIUM,NA 131 mmol/L (136-145)
[2023-04-17] MEDS ORDERED: fentaNYL 12 MCG/HR Transdermal Patch TRDERM SCH (13:00)
[2023-04-17] MEDS ORDERED: fentaNYL 12 MCG/HR Transdermal Patch ONE (13:28)
[2023-04-17] MEDS: atorvaSTATin 20 MG Tab PO SCH (19:44)
[2023-04-18 08:48] LABS: INR 3.1 (1.0-3.5)
[2023-04-18 08:54] LABS: PROTHROMBIN TIME 30.1 sec (9.0-11.5)
[2023-04-18] MEDS: Metoprolol Succinate 25 MG Tab.ER PO SCH (09:10)
[2023-04-18] MEDS: Furosemide 40 MG Tab PO SCH ×2 (09:10→14:56)
[2023-04-18] MEDS: Finasteride 5 MG Tab PO SCH (09:11)
[2023-04-18] MEDS: Pantoprazole 40 MG Tab.CR PO SCH ×2 (09:11→20:40)
[2023-04-18] MEDS: Ferrous Sulfate 325 MG Tab PO SCH (09:11)
[2023-04-18] MEDS: Levothyroxine 100 MCG Tab PO SCH (09:11)
[2023-04-18] MEDS: Midodrine 5 MG Tab PO SCH ×3 (09:12→17:17)
[2023-04-18] MEDS: Spironolactone 100 MG Tab PO SCH ×2 (09:12→14:56)
[2023-04-18] MEDS: Polyethylene Glycol 3350 Powder 17 GM Packet PO SCH (09:12)
[2023-04-18] MEDS: Trolamine Salicylate/Aloe Vera 10% Crm 85 GM Tube TOP SCH ×4 (09:16→20:40)
[2023-04-18] MEDS: atorvaSTATin 20 MG Tab PO SCH (20:40)
[2023-04-18] MEDS: Melatonin 3 MG Tab PO PRN (20:40)
[2023-04-18] MEDS: traMADol 50 MG Tab PO PRN (20:41)
[2023-04-19 07:59] LABS: INR 2.8 (1.0-3.5)
[2023-04-19 08:00] LABS: PROTHROMBIN TIME 27.8 sec (9.0-11.5)
[2023-04-19] MEDS: Spironolactone 100 MG Tab PO SCH ×2 (08:00→13:23)
[2023-04-19] MEDS: Furosemide 40 MG Tab PO SCH ×4 (08:00→16:32)
[2023-04-19] MEDS: Levothyroxine 100 MCG Tab PO SCH (08:01)
[2023-04-19] MEDS: Midodrine 5 MG Tab PO SCH (08:01)
[2023-04-19] MEDS: Ferrous Sulfate 325 MG Tab PO SCH (08:01)
[2023-04-19] MEDS: Finasteride 5 MG Tab PO SCH (08:01)
[2023-04-19] MEDS: Pantoprazole 40 MG Tab.CR PO SCH (08:02)
[2023-04-19] MEDS: Metoprolol Succinate 25 MG Tab.ER PO SCH (08:02)
[2023-04-19] MEDS: Trolamine Salicylate/Aloe Vera 10% Crm 85 GM Tube TOP SCH ×3 (08:07→16:35)
[2023-04-19] MEDS: Polyethylene Glycol 3350 Powder 17 GM Packet PO SCH (08:10)
[2023-04-19] MEDS ORDERED: Acetaminophen/HYDROcodone 325-5 MG Tab PO ONE (09:50)
[2023-04-19 10:14] LABS: BASOPHILS ABSOLUTE AUTO 0.07 K/uL (0.02-0.10); BASOPHILS PERCENT AUTO 0.6 % (0.0-0.5); EOSINOPHILS ABSOLUTE AUTO 0.24 K/uL (0.04-0.40); EOSINOPHILS PERCENT AUTO 1.9 % (1.0-5.0); HEMATOCRIT 31.4 % (40.0-54.0); HEMOGLOBIN 10.3 g/dL (13.0-18.0); LYMPHOCYTES ABSOLUTE AUTO 0.67 K/uL (1.50-4.00); LYMPHOCYTES PERCENT AUTO 5.3 % (20.0-40.0); MEAN CORPUSCULAR HEMOGLOBIN 31.3 pg (27.0-32.0); MEAN CORPUSCULAR HGB CONC 32.8 g/dL (31.0-35.0); MEAN CORPUSCULAR VOLUME 95 fL (76-96); MEAN PLATELET VOLUME 11.3 fL (6.0-10.0); MONOCYTES ABSOLUTE AUTO 1.07 K/uL (0.20-0.80); MONOCYTES PERCENT AUTO 8.5 % (3.0-10.0); NEUTROPHILS ABSOLUTE AUTO 10.58 K/uL (2.00-7.50); NEUTROPHILS PERCENT AUTO 83.7 % (45.0-70.0); PLATELET COUNT,PLT 168 K/uL (150-400); RED BLOOD CELL COUNT 3.29 M/uL (4.50-6.50); RED CELL DISTRIBUTION WIDTH 22.8 % (11.0-16.0); WHITE BLOOD CELL COUNT,WBC 12.6 K/uL (4.0-11.0)
[2023-04-19 10:43] LABS: A/G RATIO 0.5 (0.8-2.0); ALANINE AMINOTRANSFERASE,ALT 9 U/L (12-78); ALBUMIN 2.6 g/dL (3.4-5.0); ALKALINE PHOSPHATASE 111 U/L (46-116); ANION GAP 12.2 mmol/L (5.0-15.0); ASPARTATE AMNIOTRANSFERASE,AST 30 U/L (15-37); BILIRUBIN TOTAL 2.3 mg/dL (0.0-1.0); BLOOD UREA NITROGEN,BUN 24 mg/dL (8-26); BUN/CREATININE RATIO 17.5 (6-25); CALCIUM 8.9 mg/dL (8.5-10.1); CARBON DIOXIDE,CO2 27.8 mmol/L (21.0-32.0); CHLORIDE,CL 96 mmol/L (98-107); CREATININE 1.37 mg/dL (0.70-1.30); ESTIMATED GFR 54 mL/min (>60); GLUCOSE RANDOM 114 mg/dL (74-100); PROTEIN TOTAL,TP 7.5 g/dL (6.4-8.2); SODIUM,NA 132 mmol/L (136-145)
[2023-04-19] MEDS ORDERED: Sodium Chloride 0.9% 10 ML Syringe FLUSH PRN (11:00)
[2023-04-19] MEDS ORDERED: metroNIDAZOLE/Normal Saline 100 ML IV ONE (12:32)
[2023-04-19] MEDS ORDERED: Morphine 4 MG/ML VIAL IVPUSH ONE (12:32)
[2023-04-27] MEDS ORDERED: Pantoprazole 40 MG Tab.CR PO SCH (08:00)
== END 2023-04-19 16:51 | disposition critical access hospital (66) | DRG 948 ==
LOC: LB.MS 14:14
PROVIDERS: ADMIT Surgery; ATTEND Surgery
DX: R53.1 Weakness (principal); I13.0 Hypertensive heart and chronic kidney disease with heart failure and stage 1 through stage 4 chronic kidney disease, or unspecified chronic kidney disease; I50.9 Heart failure, unspecified; E03.9 Hypothyroidism, unspecified; K21.9 Gastro-esophageal reflux disease without esophagitis; I48.91 Unspecified atrial fibrillation; R60.1 Generalized edema; N18.9 Chronic kidney disease, unspecified; Z89.612 Acquired absence of left leg above knee; Z95.2 Presence of prosthetic heart valve; Z86.718 Personal history of other venous thrombosis and embolism; Z79.01 Long term (current) use of anticoagulants; Z79.899 Other long term (current) drug therapy
CPT/HCPCS: 36415; 74176; 80048; 80053; 83605; 83690; 85025; 85027; 85610; 97110-GP; 97161-GP; 97165-GO; 97530-GO; 97530-GP; 97535-GO; A9270-GY; J1836; J2270

== ENCOUNTER 2023-04-19 15:59 | Inpatient (IN) | payer MEDICARE ==
[2023-04-19] MEDS ORDERED: Warfarin 4 MG Tab PO SCH (18:00)
[2023-04-19] MEDS ORDERED: Bisacodyl 5 MG Tab PO PRN (18:07)
[2023-04-19] MEDS ORDERED: Spironolactone 100 MG Tab PO SCH (20:00)
[2023-04-19] MEDS ORDERED: Furosemide 40 MG Tab PO SCH (20:00)
[2023-04-19] MEDS ORDERED: metroNIDAZOLE/Normal Saline 100 ML ONE (21:35)
[2023-04-19] MEDS: Trolamine Salicylate/Aloe Vera 10% Crm 85 GM Tube TOP SCH (21:46)
[2023-04-19] MEDS: Melatonin 3 MG Tab PO SCH (21:47)
[2023-04-19] MEDS: Pantoprazole 40 MG Tab.CR PO SCH (21:47)
[2023-04-19] MEDS: Potassium Chloride 20 MEQ Tab.ER PO SCH (21:47)
[2023-04-19] MEDS: metroNIDAZOLE/Normal Saline 500 MG in Premix Bag 1 BAG IV SCH (21:51)
[2023-04-20] MEDS ORDERED: metroNIDAZOLE/Normal Saline 100 ML ONE (04:45)
[2023-04-20] MEDS: metroNIDAZOLE/Normal Saline 500 MG in Premix Bag 1 BAG IV SCH (04:50)
[2023-04-20] MEDS ORDERED: Levothyroxine 50 MCG Tab PO SCH (07:00)
[2023-04-20] MEDS: Potassium Chloride 20 MEQ Tab.ER PO SCH ×2 (07:23→21:08)
[2023-04-20] MEDS: Levothyroxine 100 MCG Tab PO SCH (07:24)
[2023-04-20] MEDS: Pantoprazole 40 MG Tab.CR PO SCH ×2 (07:24→21:07)
[2023-04-20] MEDS: Ferrous Sulfate 325 MG Tab PO SCH (07:24)
[2023-04-20] MEDS: Furosemide 40 MG Tab PO SCH ×2 (07:24→13:49)
[2023-04-20] MEDS: Spironolactone 100 MG Tab PO SCH ×2 (07:25→13:50)
[2023-04-20] MEDS: Finasteride 5 MG Tab PO SCH (07:25)
[2023-04-20] MEDS: Polyethylene Glycol 3350 Powder 17 GM Packet PO SCH (07:26)
[2023-04-20] MEDS: Metoprolol Succinate 25 MG Tab.ER PO SCH (07:27)
[2023-04-20] MEDS: Trolamine Salicylate/Aloe Vera 10% Crm 85 GM Tube TOP SCH ×4 (08:00→21:10)
[2023-04-20] MEDS ORDERED: Warfarin 2 MG Tab PO SCH (08:00)
[2023-04-20 08:40] LABS: ANION GAP 12.3 mmol/L (5.0-15.0); BUN/CREATININE RATIO 20.5 (6-25); CALCIUM 9.2 mg/dL (8.5-10.1); CREATININE 1.32 mg/dL (0.70-1.30); EST CRCL DRUG DOSING (CG) 47.5 mL/min; INR 2.5 (1.0-3.5); POTASSIUM,K 4.3 mmol/L (3.5-5.1)
[2023-04-20 08:42] LABS: PROTHROMBIN TIME 25.2 sec (9.0-11.5)
[2023-04-20 08:45] LABS: HEMATOCRIT 33.7 % (40.0-54.0); HEMOGLOBIN 10.9 g/dL (13.0-18.0); MEAN CORPUSCULAR HEMOGLOBIN 31.1 pg (27.0-32.0); MEAN CORPUSCULAR HGB CONC 32.3 g/dL (31.0-35.0); MEAN CORPUSCULAR VOLUME 96 fL (76-96); PLATELET COUNT,PLT 111 K/uL (150-400); RED BLOOD CELL COUNT 3.51 M/uL (4.50-6.50); WHITE BLOOD CELL COUNT,WBC 16.8 K/uL (4.0-11.0)
[2023-04-20] MEDS: metroNIDAZOLE/Normal Saline 100 ML IV SCH ×2 (12:39→21:06)
[2023-04-20] MEDS: Lactobacillus Acidophilus/Lactobacillus Sporogenes (Probiotic) Tab PO SCH (13:49)
[2023-04-20] MEDS: fentaNYL 12 MCG/HR Transdermal Patch TRDERM SCH (13:50)
[2023-04-20] MEDS: Melatonin 3 MG Tab PO SCH (21:08)
[2023-04-21] MEDS: traMADol 50 MG Tab PO PRN (00:16)
[2023-04-21] MEDS: metroNIDAZOLE/Normal Saline 100 ML IV SCH ×3 (04:04→20:20)
[2023-04-21] MEDS: Levothyroxine 100 MCG Tab PO SCH (07:45)
[2023-04-21 07:57] LABS: HEMATOCRIT 29.7 % (40.0-54.0); HEMOGLOBIN 9.6 g/dL (13.0-18.0); MEAN CORPUSCULAR HEMOGLOBIN 31.1 pg (27.0-32.0); MEAN CORPUSCULAR HGB CONC 32.3 g/dL (31.0-35.0); MEAN PLATELET VOLUME 10.9 fL (6.0-10.0); RED BLOOD CELL COUNT 3.09 M/uL (4.50-6.50); RED CELL DISTRIBUTION WIDTH 22.5 % (11.0-16.0); WHITE BLOOD CELL COUNT,WBC 8.2 K/uL (4.0-11.0)
[2023-04-21 08:01] LABS: INR 2.6 (1.0-3.5)
[2023-04-21 08:05] LABS: ANION GAP 10.2 mmol/L (5.0-15.0); CALCIUM 8.9 mg/dL (8.5-10.1); CARBON DIOXIDE,CO2 29.2 mmol/L (21.0-32.0); CREATININE 1.38 mg/dL (0.70-1.30); EST CRCL DRUG DOSING (CG) 45.43 mL/min; POTASSIUM,K 4.4 mmol/L (3.5-5.1)
[2023-04-21 08:10] LABS: PROTHROMBIN TIME 26.2 sec (9.0-11.5)
[2023-04-21] MEDS: Furosemide 40 MG Tab PO SCH ×2 (08:41→14:42)
[2023-04-21] MEDS: Ferrous Sulfate 325 MG Tab PO SCH (08:41)
[2023-04-21] MEDS: Pantoprazole 40 MG Tab.CR PO SCH ×2 (08:41→20:23)
[2023-04-21] MEDS: Lactobacillus Acidophilus/Lactobacillus Sporogenes (Probiotic) Tab PO SCH (08:42)
[2023-04-21] MEDS: Metoprolol Succinate 25 MG Tab.ER PO SCH (08:42)
[2023-04-21] MEDS: Potassium Chloride 20 MEQ Tab.ER PO SCH ×2 (08:42→20:23)
[2023-04-21] MEDS: Spironolactone 100 MG Tab PO SCH ×2 (08:42→14:43)
[2023-04-21] MEDS: Trolamine Salicylate/Aloe Vera 10% Crm 85 GM Tube TOP SCH ×4 (08:49→20:23)
[2023-04-21] MEDS: Finasteride 5 MG Tab PO SCH (08:50)
[2023-04-21] MEDS: Polyethylene Glycol 3350 Powder 17 GM Packet PO SCH ×2 (08:50→08:56)
[2023-04-21] MEDS: Melatonin 3 MG Tab PO SCH (20:23)
[2023-04-22] MEDS: traMADol 50 MG Tab PO PRN ×2 (02:38→19:45)
[2023-04-22] MEDS: metroNIDAZOLE/Normal Saline 100 ML IV SCH ×3 (03:55→19:40)
[2023-04-22] MEDS: Polyethylene Glycol 3350 Powder 17 GM Packet PO SCH (08:15)
[2023-04-22] MEDS: Levothyroxine 100 MCG Tab PO SCH (08:16)
[2023-04-22] MEDS: Pantoprazole 40 MG Tab.CR PO SCH ×2 (08:16→19:41)
[2023-04-22] MEDS: Trolamine Salicylate/Aloe Vera 10% Crm 85 GM Tube TOP SCH ×4 (08:16→19:41)
[2023-04-22] MEDS: Finasteride 5 MG Tab PO SCH (08:17)
[2023-04-22] MEDS: Lactobacillus Acidophilus/Lactobacillus Sporogenes (Probiotic) Tab PO SCH (08:17)
[2023-04-22] MEDS: Metoprolol Succinate 25 MG Tab.ER PO SCH (08:17)
[2023-04-22] MEDS: Ferrous Sulfate 325 MG Tab PO SCH (08:17)
[2023-04-22] MEDS: Furosemide 40 MG Tab PO SCH (08:17)
[2023-04-22] MEDS: Spironolactone 100 MG Tab PO SCH (08:17)
[2023-04-22] MEDS: Potassium Chloride 20 MEQ Tab.ER PO SCH ×2 (08:17→19:41)
[2023-04-22 10:18] LABS: INR 2.2 (1.0-3.5)
[2023-04-22 10:20] LABS: PROTHROMBIN TIME 21.8 sec (9.0-11.5)
[2023-04-22 10:28] LABS: ANION GAP 12.3 mmol/L (5.0-15.0); BUN/CREATININE RATIO 22.9 (6-25); CALCIUM 8.9 mg/dL (8.5-10.1); CARBON DIOXIDE,CO2 26.4 mmol/L (21.0-32.0); CREATININE 1.44 mg/dL (0.70-1.30); EST CRCL DRUG DOSING (CG) 43.54 mL/min; POTASSIUM,K 4.7 mmol/L (3.5-5.1)
[2023-04-22] MEDS ORDERED: Warfarin 2 MG Tab ONE (17:19)
[2023-04-22] MEDS: Warfarin 2 MG Tab PO SCH (17:21)
[2023-04-22] MEDS: Melatonin 3 MG Tab PO SCH (19:41)
[2023-04-23] MEDS: metroNIDAZOLE/Normal Saline 100 ML IV SCH (03:22)
[2023-04-23] MEDS: Polyethylene Glycol 3350 Powder 17 GM Packet PO SCH (07:48)
[2023-04-23] MEDS: Ferrous Sulfate 325 MG Tab PO SCH (07:48)
[2023-04-23] MEDS: Potassium Chloride 20 MEQ Tab.ER PO SCH ×2 (07:49→19:26)
[2023-04-23] MEDS: Lactobacillus Acidophilus/Lactobacillus Sporogenes (Probiotic) Tab PO SCH (07:49)
[2023-04-23] MEDS: Finasteride 5 MG Tab PO SCH (07:49)
[2023-04-23] MEDS: Levothyroxine 100 MCG Tab PO SCH (07:49)
[2023-04-23] MEDS: Metoprolol Succinate 25 MG Tab.ER PO SCH (07:50)
[2023-04-23] MEDS: Furosemide 40 MG Tab PO SCH (07:50)
[2023-04-23] MEDS: Pantoprazole 40 MG Tab.CR PO SCH ×2 (07:51→19:26)
[2023-04-23 09:01] LABS: INR 1.8 (1.0-3.5)
[2023-04-23 09:04] LABS: PROTHROMBIN TIME 18.6 sec (9.0-11.5)
[2023-04-23] MEDS: Trolamine Salicylate/Aloe Vera 10% Crm 85 GM Tube TOP SCH ×4 (09:43→19:27)
[2023-04-23] MEDS: traMADol 50 MG Tab PO PRN ×2 (09:43→19:26)
[2023-04-23] MEDS: Spironolactone 100 MG Tab PO SCH (11:56)
[2023-04-23] MEDS: fentaNYL 12 MCG/HR Transdermal Patch TRDERM SCH (11:56)
[2023-04-23] MEDS: Warfarin 2 MG Tab PO SCH (17:17)
[2023-04-23] MEDS: Melatonin 3 MG Tab PO SCH (19:26)
[2023-04-24] MEDS: traMADol 50 MG Tab PO PRN ×3 (01:35→16:40)
[2023-04-24] MEDS: Metoprolol Succinate 25 MG Tab.ER PO SCH (07:43)
[2023-04-24] MEDS: Pantoprazole 40 MG Tab.CR PO SCH ×2 (07:44→20:26)
[2023-04-24] MEDS: Spironolactone 100 MG Tab PO SCH (07:44)
[2023-04-24] MEDS: Trolamine Salicylate/Aloe Vera 10% Crm 85 GM Tube TOP SCH ×4 (07:44→20:26)
[2023-04-24] MEDS: Ferrous Sulfate 325 MG Tab PO SCH (07:44)
[2023-04-24] MEDS: Levothyroxine 100 MCG Tab PO SCH (07:44)
[2023-04-24] MEDS: Lactobacillus Acidophilus/Lactobacillus Sporogenes (Probiotic) Tab PO SCH (07:44)
[2023-04-24] MEDS: Furosemide 40 MG Tab PO SCH (07:45)
[2023-04-24] MEDS: Finasteride 5 MG Tab PO SCH (07:45)
[2023-04-24] MEDS: Polyethylene Glycol 3350 Powder 17 GM Packet PO SCH (07:45)
[2023-04-24] MEDS: Potassium Chloride 20 MEQ Tab.ER PO SCH (07:45)
[2023-04-24 07:55] LABS: INR 1.8 (1.0-3.5)
[2023-04-24 07:57] LABS: PROTHROMBIN TIME 18.1 sec (9.0-11.5)
[2023-04-24 07:58] LABS: ANION GAP 12.7 mmol/L (5.0-15.0); BUN/CREATININE RATIO 23.8 (6-25); CALCIUM 9.3 mg/dL (8.5-10.1); CREATININE 1.3 mg/dL (0.70-1.30); EST CRCL DRUG DOSING (CG) 48.23 mL/min; POTASSIUM,K 5.7 mmol/L (3.5-5.1)
[2023-04-24] MEDS: Warfarin 2 MG Tab PO SCH (17:43)
[2023-04-24] MEDS: Melatonin 3 MG Tab PO SCH (20:26)
[2023-04-25] MEDS: traMADol 50 MG Tab PO PRN ×2 (00:16→07:41)
[2023-04-25] MEDS: Ferrous Sulfate 325 MG Tab PO SCH (07:32)
[2023-04-25] MEDS: Trolamine Salicylate/Aloe Vera 10% Crm 85 GM Tube TOP SCH (07:32)
[2023-04-25] MEDS: Pantoprazole 40 MG Tab.CR PO SCH (07:32)
[2023-04-25] MEDS: Finasteride 5 MG Tab PO SCH (07:32)
[2023-04-25] MEDS: Spironolactone 100 MG Tab PO SCH (07:32)
[2023-04-25] MEDS: Lactobacillus Acidophilus/Lactobacillus Sporogenes (Probiotic) Tab PO SCH (07:32)
[2023-04-25] MEDS: Levothyroxine 100 MCG Tab PO SCH (07:32)
[2023-04-25] MEDS: Furosemide 40 MG Tab PO SCH (07:33)
[2023-04-25] MEDS: Metoprolol Succinate 25 MG Tab.ER PO SCH (07:33)
[2023-04-25] MEDS: Polyethylene Glycol 3350 Powder 17 GM Packet PO SCH (07:34)
[2023-04-25 08:32] LABS: ANION GAP 11.9 mmol/L (5.0-15.0); BUN/CREATININE RATIO 20.5 (6-25); CALCIUM 9.4 mg/dL (8.5-10.1); CREATININE 1.32 mg/dL (0.70-1.30); EST CRCL DRUG DOSING (CG) 47.5 mL/min; POTASSIUM,K 5.9 mmol/L (3.5-5.1)
[2023-04-25 08:35] LABS: INR 1.8 (1.0-3.5)
[2023-04-25 08:37] LABS: PROTHROMBIN TIME 18.6 sec (9.0-11.5)
== END 2023-04-25 10:40 | disposition home or self-care (01) | DRG 393 ==
LOC: LB.MS 17:10 → UNDOADMIN 17:10 → LB.MS 17:26
PROVIDERS: ADMIT Surgery; ATTEND Surgery
DX: K62.89 Other specified diseases of anus and rectum (principal); K29.71 Gastritis, unspecified, with bleeding; I13.0 Hypertensive heart and chronic kidney disease with heart failure and stage 1 through stage 4 chronic kidney disease, or unspecified chronic kidney disease; M25.511 Pain in right shoulder; I50.9 Heart failure, unspecified; D72.829 Elevated white blood cell count, unspecified; I48.91 Unspecified atrial fibrillation; Z95.2 Presence of prosthetic heart valve; K21.9 Gastro-esophageal reflux disease without esophagitis; E03.9 Hypothyroidism, unspecified; R79.1 Abnormal coagulation profile; R60.1 Generalized edema; S31.103A Unspecified open wound of abdominal wall, right lower quadrant without penetration into peritoneal cavity, initial encounter; N18.9 Chronic kidney disease, unspecified; E11.22 Type 2 diabetes mellitus with diabetic chronic kidney disease; Z88.8 Allergy status to other drugs, medicaments and biological substances; Z79.899 Other long term (current) drug therapy; Z79.01 Long term (current) use of anticoagulants; Z86.010 Personal history of colon polyps; Z89.612 Acquired absence of left leg above knee; Z86.718 Personal history of other venous thrombosis and embolism
CPT/HCPCS: 36415; 80048; 85027; 85610; 97110-GO; 97110-GP; 97530-GO; 97530-GP; 97535-GO; A9270-GY; J1836

== ENCOUNTER 2023-04-25 10:17 | Inpatient (IN) | payer MEDICARE ==
[2023-04-25] MEDS ORDERED: Bisacodyl 5 MG Tab PO PRN (10:40)
[2023-04-25] MEDS: Trolamine Salicylate/Aloe Vera 10% Crm 85 GM Tube TOP SCH (12:30)
[2023-04-25] MEDS: Tuberculin, PPD 5 Units/0.1 ML 1 ML MDV IDERM ONE (14:53)
[2023-04-25] MEDS: traMADol 50 MG Tab PO PRN (16:39)
[2023-04-25] MEDS: Warfarin 2 MG Tab PO SCH (18:15)
[2023-04-25] MEDS: Melatonin 3 MG Tab PO SCH (20:13)
[2023-04-25] MEDS: Pantoprazole 40 MG Tab.CR PO SCH (20:13)
[2023-04-26] MEDS: Spironolactone 100 MG Tab PO SCH (07:28)
[2023-04-26] MEDS: Lactobacillus Acidophilus/Lactobacillus Sporogenes (Probiotic) Tab PO SCH (07:28)
[2023-04-26] MEDS: Ferrous Sulfate 325 MG Tab PO SCH (07:28)
[2023-04-26] MEDS: Furosemide 40 MG Tab PO SCH (07:28)
[2023-04-26] MEDS: Finasteride 5 MG Tab PO SCH (07:29)
[2023-04-26] MEDS: Metoprolol Succinate 25 MG Tab.ER PO SCH (07:29)
[2023-04-26] MEDS: Levothyroxine 100 MCG Tab PO SCH (07:29)
[2023-04-26] MEDS: Polyethylene Glycol 3350 Powder 17 GM Packet PO SCH (07:30)
[2023-04-26 08:30] LABS: INR 1.9 (1.0-3.5)
[2023-04-26 08:38] LABS: PROTHROMBIN TIME 18.9 sec (9.0-11.5)
[2023-04-26] MEDS: fentaNYL 12 MCG/HR Transdermal Patch TRDERM SCH (12:11)
[2023-04-29] MEDS ORDERED: Ondansetron 4 MG Tab.DIS PO PRN (12:21)
[2023-04-29] MEDS: Ondansetron 4 MG Tab.DIS ONE (12:22)
[2023-04-30] MEDS ORDERED: Sodium Chloride 0.9% 50 ML SDV FLUSH ONE (09:13)
[2023-04-30] MEDS ORDERED: Sodium Chloride 0.9% 10 ML Syringe FLUSH ONE (09:13)
[2023-04-30] MEDS ORDERED: Iopamidol 612 MG/ML 100 ML Bottle IV SCH (09:15)
[2023-04-30 09:19] LABS: BASOPHILS ABSOLUTE AUTO 0.13 K/uL (0.02-0.10); BASOPHILS PERCENT AUTO 1.5 % (0.0-0.5); EOSINOPHILS ABSOLUTE AUTO 0.38 K/uL (0.04-0.40); EOSINOPHILS PERCENT AUTO 4.3 % (1.0-5.0); HEMATOCRIT 33.6 % (40.0-54.0); HEMOGLOBIN 11.9 g/dL (13.0-18.0); LYMPHOCYTES ABSOLUTE AUTO 1.06 K/uL (1.50-4.00); MEAN CORPUSCULAR HEMOGLOBIN 30.4 pg (27.0-32.0); MEAN CORPUSCULAR HGB CONC 35.4 g/dL (31.0-35.0); MEAN CORPUSCULAR VOLUME 86 fL (76-96); MEAN PLATELET VOLUME 10.6 fL (6.0-10.0); MONOCYTES ABSOLUTE AUTO 1.01 K/uL (0.20-0.80); MONOCYTES PERCENT AUTO 11.5 % (3.0-10.0); NEUTROPHILS ABSOLUTE AUTO 6.22 K/uL (2.00-7.50); NEUTROPHILS PERCENT AUTO 70.7 % (45.0-70.0); PLATELET COUNT,PLT 247 K/uL (150-400); RED BLOOD CELL COUNT 3.91 M/uL (4.50-6.50); RED CELL DISTRIBUTION WIDTH 24.3 % (11.0-16.0); WHITE BLOOD CELL COUNT,WBC 8.8 K/uL (4.0-11.0)
[2023-04-30 09:31] LABS: INR 1.7 (1.0-3.5)
[2023-04-30 09:41] LABS: PROTHROMBIN TIME 17.1 sec (9.0-11.5)
[2023-04-30 09:45] LABS: A/G RATIO 0.5 (0.8-2.0); BILIRUBIN TOTAL 2.7 mg/dL (0.0-1.0); BUN/CREATININE RATIO 26.4 (6-25); CALCIUM 9.7 mg/dL (8.5-10.1); CARBON DIOXIDE,CO2 26.5 mmol/L (21.0-32.0); CREATININE 1.48 mg/dL (0.70-1.30); EST CRCL DRUG DOSING (CG) 40.94 mL/min; PROTEIN TOTAL,TP 8.7 g/dL (6.4-8.2); TSH ULTRASENSITIVE 2.163 uIU/mL (0.358-3.740)
[2023-04-30 09:47] LABS: ANION GAP 13.6 mmol/L (5.0-15.0); POTASSIUM,K 6.1 mmol/L (3.5-5.1)
[2023-04-30] MEDS: Sodium Chloride 0.9% 1,000 ML IV ONE (11:53)
[2023-04-30 12:25] LABS: APPEARANCE,URINE CLEAR (CLEAR); BILIRUBIN,URINE NEGATIVE (NEGATIVE); COLOR,URINE YELLOW; GLUCOSE,URINE NEGATIVE (NEGATIVE); KETONES,URINE NEGATIVE (NEGATIVE); LEUKOCYTE ESTERASE,URINE NEGATIVE (NEGATIVE); NITRITE,URINE NEGATIVE (NEGATIVE); OCCULT BLOOD,URINE NEGATIVE (NEGATIVE); PROTEIN,URINE NEGATIVE (NEGATIVE); UROBILINOGEN,URINE 0.2 E.U./dL (0.2-1.0)
[2023-05-01 07:42] VITALS: BP 113/59; PULSE 86
[2023-05-01 09:57] LABS: ANION GAP 15.7 mmol/L (5.0-15.0); BUN/CREATININE RATIO 26.1 (6-25); CALCIUM 9.6 mg/dL (8.5-10.1); CARBON DIOXIDE,CO2 23.1 mmol/L (21.0-32.0); CREATININE 1.53 mg/dL (0.70-1.30); EST CRCL DRUG DOSING (CG) 39.6 mL/min; POTASSIUM,K 5.8 mmol/L (3.5-5.1)
[2023-05-01 09:58] LABS: INR 1.5 (1.0-3.5)
[2023-05-01 10:04] LABS: PROTHROMBIN TIME 15.1 sec (9.0-11.5)
[2023-05-01] MEDS ORDERED: Sodium Chloride 0.9% 50 ML SDV FLUSH ONE (12:00)
[2023-05-01] MEDS ORDERED: Iopamidol 612 MG/ML 100 ML Bottle IV SCH (12:00)
[2023-05-01] MEDS ORDERED: Sodium Chloride 0.9% 10 ML Syringe FLUSH ONE (12:00)
== END 2023-05-01 11:15 | disposition home or self-care (01) | DRG 948 ==
LOC: LB.MS 10:51
PROVIDERS: ADMIT Physician Assistant; ATTEND Physician Assistant
DX: R53.81 Other malaise (principal); R63.4 Abnormal weight loss; E11.9 Type 2 diabetes mellitus without complications; I50.9 Heart failure, unspecified; R62.7 Adult failure to thrive; I48.91 Unspecified atrial fibrillation; I11.0 Hypertensive heart disease with heart failure; K21.9 Gastro-esophageal reflux disease without esophagitis; E03.9 Hypothyroidism, unspecified; E86.0 Dehydration; Z79.899 Other long term (current) drug therapy; Z89.9 Acquired absence of limb, unspecified; Z88.8 Allergy status to other drugs, medicaments and biological substances; Z79.01 Long term (current) use of anticoagulants; Z86.010 Personal history of colon polyps; Z86.718 Personal history of other venous thrombosis and embolism
CPT/HCPCS: 36415; 80048; 80053; 81003; 84443; 85025; 85610; 97110-GO; 97116-GP; 97530-GO; 97530-GP; 97535-GO; 99305; 99309; A9270-GY; C1758; J7030

== ENCOUNTER 2023-05-01 11:23 | Inpatient (IN) | payer MEDICARE ==
[2023-05-01] MEDS ORDERED: Ondansetron 4 MG Tab.DIS PO PRN (11:55)
[2023-05-01] MEDS ORDERED: Iopamidol 612 MG/ML 100 ML Bottle IV SCH (11:55)
[2023-05-01] MEDS: Spironolactone 100 MG Tab PO SCH (12:50)
[2023-05-01] MEDS: Trolamine Salicylate/Aloe Vera 10% Crm 85 GM Tube TOP SCH (12:51)
[2023-05-01] MEDS: Furosemide 20 MG Tab PO SCH (13:01)
[2023-05-01] MEDS: Lactated Ringers 1,000 ML IV ONE (16:34)
[2023-05-01] MEDS: Sodium Chloride 0.9% 50 ML SDV FLUSH ONE (16:37)
[2023-05-01] MEDS: Sodium Chloride 0.9% 10 ML Syringe FLUSH ONE (16:37)
[2023-05-01] MEDS: Warfarin 2 MG Tab PO SCH (17:40)
[2023-05-01] MEDS: Pantoprazole 40 MG Tab.CR PO SCH (19:07)
[2023-05-01] MEDS: Melatonin 3 MG Tab PO SCH (19:07)
[2023-05-01] MEDS: traMADol 50 MG Tab PO PRN (20:58)
[2023-05-02] MEDS: Lactated Ringers 1,000 ML IV SCH (02:15)
[2023-05-02] MEDS: Finasteride 5 MG Tab PO SCH (07:46)
[2023-05-02] MEDS: Levothyroxine 100 MCG Tab PO SCH (07:46)
[2023-05-02] MEDS: Ferrous Sulfate 325 MG Tab PO SCH (07:46)
[2023-05-02] MEDS: Lactobacillus Acidophilus/Lactobacillus Sporogenes (Probiotic) Tab PO SCH (07:46)
[2023-05-02] MEDS: Metoprolol Succinate 25 MG Tab.ER PO SCH (07:47)
[2023-05-02] MEDS: Polyethylene Glycol 3350 Powder 17 GM Packet PO SCH (07:49)
[2023-05-02] MEDS ORDERED: Furosemide 40 MG Tab PO SCH (08:00)
[2023-05-02 08:53] LABS: BASOPHILS ABSOLUTE AUTO 0.13 K/uL (0.02-0.10); BASOPHILS PERCENT AUTO 1.7 % (0.0-0.5); EOSINOPHILS ABSOLUTE AUTO 0.57 K/uL (0.04-0.40); EOSINOPHILS PERCENT AUTO 7.5 % (1.0-5.0); HEMATOCRIT 28.4 % (40.0-54.0); HEMOGLOBIN 10.3 g/dL (13.0-18.0); LYMPHOCYTES ABSOLUTE AUTO 1.18 K/uL (1.50-4.00); LYMPHOCYTES PERCENT AUTO 15.5 % (20.0-40.0); MEAN CORPUSCULAR HEMOGLOBIN 31.9 pg (27.0-32.0); MEAN CORPUSCULAR HGB CONC 36.3 g/dL (31.0-35.0); MEAN CORPUSCULAR VOLUME 88 fL (76-96); MEAN PLATELET VOLUME 9.8 fL (6.0-10.0); MONOCYTES ABSOLUTE AUTO 1.06 K/uL (0.20-0.80); NEUTROPHILS ABSOLUTE AUTO 4.65 K/uL (2.00-7.50); NEUTROPHILS PERCENT AUTO 61.3 % (45.0-70.0); PLATELET COUNT,PLT 181 K/uL (150-400); RED BLOOD CELL COUNT 3.23 M/uL (4.50-6.50); WHITE BLOOD CELL COUNT,WBC 7.6 K/uL (4.0-11.0)
[2023-05-02 09:13] LABS: A/G RATIO 0.5 (0.8-2.0); ALBUMIN 2.7 g/dL (3.4-5.0); BUN/CREATININE RATIO 25.4 (6-25); CALCIUM 9.1 mg/dL (8.5-10.1); CREATININE 1.34 mg/dL (0.70-1.30); EST CRCL DRUG DOSING (CG) 49.87 mL/min; PROTEIN TOTAL,TP 7.7 g/dL (6.4-8.2)
[2023-05-02 09:15] LABS: ANION GAP 13.1 mmol/L (5.0-15.0)
[2023-05-02 09:16] LABS: POTASSIUM,K 6.1 mmol/L (3.5-5.1)
[2023-05-02] MEDS: Lactulose Soln 10 GM/15 ML 15 ML UD Cup PO ONE ×2 (10:09→18:21)
[2023-05-02] MEDS: fentaNYL 12 MCG/HR Transdermal Patch TRDERM SCH (11:56)
[2023-05-02] MEDS: Lactulose Soln 10 GM/15 ML 15 ML UD Cup PO SCH (15:00)
[2023-05-02 15:27] LABS: ANION GAP 11.9 mmol/L (5.0-15.0); BUN/CREATININE RATIO 23.6 (6-25); CALCIUM 9.1 mg/dL (8.5-10.1); CARBON DIOXIDE,CO2 25.2 mmol/L (21.0-32.0); CREATININE 1.44 mg/dL (0.70-1.30); EST CRCL DRUG DOSING (CG) 46.41 mL/min
[2023-05-02 15:31] LABS: POTASSIUM,K 6.1 mmol/L (3.5-5.1)
[2023-05-02] MEDS: Sodium Chloride 0.9% 1,000 ML IV SCH (17:02)
[2023-05-03] MEDS: Bisacodyl 5 MG Tab PO PRN (08:13)
[2023-05-03 08:15] LABS: BASOPHILS ABSOLUTE AUTO 0.08 K/uL (0.02-0.10); BASOPHILS PERCENT AUTO 1.2 % (0.0-0.5); EOSINOPHILS ABSOLUTE AUTO 0.43 K/uL (0.04-0.40); EOSINOPHILS PERCENT AUTO 6.2 % (1.0-5.0); HEMATOCRIT 28.9 % (40.0-54.0); HEMOGLOBIN 10.3 g/dL (13.0-18.0); LYMPHOCYTES ABSOLUTE AUTO 1.01 K/uL (1.50-4.00); LYMPHOCYTES PERCENT AUTO 14.6 % (20.0-40.0); MEAN CORPUSCULAR HEMOGLOBIN 31.8 pg (27.0-32.0); MEAN CORPUSCULAR HGB CONC 35.6 g/dL (31.0-35.0); MEAN CORPUSCULAR VOLUME 89 fL (76-96); MEAN PLATELET VOLUME 10.7 fL (6.0-10.0); MONOCYTES ABSOLUTE AUTO 1.14 K/uL (0.20-0.80); MONOCYTES PERCENT AUTO 16.5 % (3.0-10.0); NEUTROPHILS ABSOLUTE AUTO 4.26 K/uL (2.00-7.50); NEUTROPHILS PERCENT AUTO 61.5 % (45.0-70.0); PLATELET COUNT,PLT 175 K/uL (150-400); RED BLOOD CELL COUNT 3.24 M/uL (4.50-6.50); RED CELL DISTRIBUTION WIDTH 24.2 % (11.0-16.0); WHITE BLOOD CELL COUNT,WBC 6.9 K/uL (4.0-11.0)
[2023-05-03 08:26] LABS: A/G RATIO 0.6 (0.8-2.0); ALBUMIN 2.8 g/dL (3.4-5.0); ANION GAP 13.4 mmol/L (5.0-15.0); BUN/CREATININE RATIO 24.8 (6-25); CALCIUM 8.9 mg/dL (8.5-10.1); CARBON DIOXIDE,CO2 24.2 mmol/L (21.0-32.0); CREATININE 1.29 mg/dL (0.70-1.30); EST CRCL DRUG DOSING (CG) 50.45 mL/min; POTASSIUM,K 5.6 mmol/L (3.5-5.1); PROTEIN TOTAL,TP 7.8 g/dL (6.4-8.2)
[2023-05-03] MEDS: Sodium Polystyrene Sulfonate 15 GM/60 ML Susp 60 ML Bot PO ONE (12:04)
[2023-05-04 07:28] LABS: BASOPHILS ABSOLUTE AUTO 0.09 K/uL (0.02-0.10); BASOPHILS PERCENT AUTO 1.3 % (0.0-0.5); EOSINOPHILS PERCENT AUTO 7.1 % (1.0-5.0); HEMATOCRIT 28.6 % (40.0-54.0); HEMOGLOBIN 10.1 g/dL (13.0-18.0); LYMPHOCYTES ABSOLUTE AUTO 1.01 K/uL (1.50-4.00); LYMPHOCYTES PERCENT AUTO 14.3 % (20.0-40.0); MEAN CORPUSCULAR HEMOGLOBIN 31.8 pg (27.0-32.0); MEAN CORPUSCULAR HGB CONC 35.3 g/dL (31.0-35.0); MEAN CORPUSCULAR VOLUME 90 fL (76-96); MEAN PLATELET VOLUME 11.3 fL (6.0-10.0); MONOCYTES ABSOLUTE AUTO 1.25 K/uL (0.20-0.80); MONOCYTES PERCENT AUTO 17.8 % (3.0-10.0); NEUTROPHILS ABSOLUTE AUTO 4.19 K/uL (2.00-7.50); NEUTROPHILS PERCENT AUTO 59.5 % (45.0-70.0); PLATELET COUNT,PLT 182 K/uL (150-400); RED BLOOD CELL COUNT 3.18 M/uL (4.50-6.50); RED CELL DISTRIBUTION WIDTH 24.1 % (11.0-16.0)
[2023-05-04 08:02] LABS: A/G RATIO 0.6 (0.8-2.0); ALBUMIN 2.7 g/dL (3.4-5.0); ANION GAP 12.6 mmol/L (5.0-15.0); BILIRUBIN TOTAL 1.4 mg/dL (0.0-1.0); BUN/CREATININE RATIO 25.4 (6-25); CALCIUM 8.7 mg/dL (8.5-10.1); CARBON DIOXIDE,CO2 24.5 mmol/L (21.0-32.0); CREATININE 1.14 mg/dL (0.70-1.30); EST CRCL DRUG DOSING (CG) 57.09 mL/min; POTASSIUM,K 6.1 mmol/L (3.5-5.1); PROTEIN TOTAL,TP 7.6 g/dL (6.4-8.2)
[2023-05-04] MEDS ORDERED: Sodium Polystyrene Sulfonate 15 GM/60 ML Susp 473 ML Bottle PO ONE (08:43)
[2023-05-04] MEDS: Sodium Polystyrene Sulfonate 15 GM/60 ML Susp 473 ML Bottle PO SCH (08:52)
[2023-05-04] MEDS: Sodium Polystyrene Sulfonate 15 GM/60 ML Susp 60 ML Bot ONE (08:54)
[2023-05-05 08:39] LABS: BASOPHILS ABSOLUTE AUTO 0.07 K/uL (0.02-0.10); BASOPHILS PERCENT AUTO 1.1 % (0.0-0.5); EOSINOPHILS ABSOLUTE AUTO 0.49 K/uL (0.04-0.40); EOSINOPHILS PERCENT AUTO 7.9 % (1.0-5.0); HEMOGLOBIN 9.4 g/dL (13.0-18.0); LYMPHOCYTES ABSOLUTE AUTO 0.86 K/uL (1.50-4.00); LYMPHOCYTES PERCENT AUTO 13.9 % (20.0-40.0); MEAN CORPUSCULAR HEMOGLOBIN 31.6 pg (27.0-32.0); MEAN CORPUSCULAR HGB CONC 34.8 g/dL (31.0-35.0); MEAN CORPUSCULAR VOLUME 91 fL (76-96); MEAN PLATELET VOLUME 10.8 fL (6.0-10.0); MONOCYTES ABSOLUTE AUTO 1.09 K/uL (0.20-0.80); MONOCYTES PERCENT AUTO 17.6 % (3.0-10.0); NEUTROPHILS ABSOLUTE AUTO 3.67 K/uL (2.00-7.50); NEUTROPHILS PERCENT AUTO 59.5 % (45.0-70.0); PLATELET COUNT,PLT 159 K/uL (150-400); RED BLOOD CELL COUNT 2.97 M/uL (4.50-6.50); WHITE BLOOD CELL COUNT,WBC 6.2 K/uL (4.0-11.0)
[2023-05-05 08:57] LABS: A/G RATIO 0.5 (0.8-2.0); ALBUMIN 2.5 g/dL (3.4-5.0); ANION GAP 12.6 mmol/L (5.0-15.0); BILIRUBIN TOTAL 2.1 mg/dL (0.0-1.0); BUN/CREATININE RATIO 23.5 (6-25); CARBON DIOXIDE,CO2 23.5 mmol/L (21.0-32.0); CREATININE 1.02 mg/dL (0.70-1.30); EST CRCL DRUG DOSING (CG) 64.71 mL/min; POTASSIUM,K 5.1 mmol/L (3.5-5.1); PROTEIN TOTAL,TP 7.1 g/dL (6.4-8.2)
[2023-05-06 08:24] LABS: BASOPHILS ABSOLUTE AUTO 0.09 K/uL (0.02-0.10); BASOPHILS PERCENT AUTO 1.5 % (0.0-0.5); EOSINOPHILS ABSOLUTE AUTO 0.43 K/uL (0.04-0.40); EOSINOPHILS PERCENT AUTO 7.1 % (1.0-5.0); HEMATOCRIT 27.2 % (40.0-54.0); HEMOGLOBIN 9.5 g/dL (13.0-18.0); LYMPHOCYTES ABSOLUTE AUTO 0.79 K/uL (1.50-4.00); LYMPHOCYTES PERCENT AUTO 13.1 % (20.0-40.0); MEAN CORPUSCULAR HEMOGLOBIN 32.3 pg (27.0-32.0); MEAN CORPUSCULAR HGB CONC 34.9 g/dL (31.0-35.0); MEAN CORPUSCULAR VOLUME 93 fL (76-96); MEAN PLATELET VOLUME 10.2 fL (6.0-10.0); MONOCYTES PERCENT AUTO 14.9 % (3.0-10.0); NEUTROPHILS ABSOLUTE AUTO 3.84 K/uL (2.00-7.50); NEUTROPHILS PERCENT AUTO 63.4 % (45.0-70.0); PLATELET COUNT,PLT 155 K/uL (150-400); RED BLOOD CELL COUNT 2.94 M/uL (4.50-6.50); RED CELL DISTRIBUTION WIDTH 24.1 % (11.0-16.0); WHITE BLOOD CELL COUNT,WBC 6.1 K/uL (4.0-11.0)
[2023-05-06 08:57] LABS: A/G RATIO 0.6 (0.8-2.0); ALBUMIN 2.6 g/dL (3.4-5.0); ANION GAP 12.9 mmol/L (5.0-15.0); BILIRUBIN TOTAL 1.9 mg/dL (0.0-1.0); BUN/CREATININE RATIO 23.1 (6-25); CALCIUM 8.4 mg/dL (8.5-10.1); CARBON DIOXIDE,CO2 23.1 mmol/L (21.0-32.0); CREATININE 1.04 mg/dL (0.70-1.30); EST CRCL DRUG DOSING (CG) 64.34 mL/min; MAGNESIUM 1.8 mg/dL (1.8-2.4); PROTEIN TOTAL,TP 7.2 g/dL (6.4-8.2)
[2023-05-07 08:34] LABS: BASOPHILS ABSOLUTE AUTO 0.11 K/uL (0.02-0.10); BASOPHILS PERCENT AUTO 1.9 % (0.0-0.5); EOSINOPHILS ABSOLUTE AUTO 0.51 K/uL (0.04-0.40); HEMATOCRIT 26.8 % (40.0-54.0); HEMOGLOBIN 9.1 g/dL (13.0-18.0); LYMPHOCYTES ABSOLUTE AUTO 0.96 K/uL (1.50-4.00); LYMPHOCYTES PERCENT AUTO 16.9 % (20.0-40.0); MEAN CORPUSCULAR HEMOGLOBIN 31.8 pg (27.0-32.0); MEAN CORPUSCULAR VOLUME 94 fL (76-96); MEAN PLATELET VOLUME 10.8 fL (6.0-10.0); MONOCYTES ABSOLUTE AUTO 0.98 K/uL (0.20-0.80); MONOCYTES PERCENT AUTO 17.2 % (3.0-10.0); NEUTROPHILS ABSOLUTE AUTO 3.13 K/uL (2.00-7.50); PLATELET COUNT,PLT 144 K/uL (150-400); RED BLOOD CELL COUNT 2.86 M/uL (4.50-6.50); RED CELL DISTRIBUTION WIDTH 24.3 % (11.0-16.0); WHITE BLOOD CELL COUNT,WBC 5.7 K/uL (4.0-11.0)
[2023-05-07 08:58] LABS: A/G RATIO 0.6 (0.8-2.0); ALBUMIN 2.6 g/dL (3.4-5.0); ANION GAP 13.3 mmol/L (5.0-15.0); BILIRUBIN TOTAL 2.1 mg/dL (0.0-1.0); BUN/CREATININE RATIO 26.9 (6-25); CALCIUM 8.5 mg/dL (8.5-10.1); CARBON DIOXIDE,CO2 23.6 mmol/L (21.0-32.0); CREATININE 1.04 mg/dL (0.70-1.30); EST CRCL DRUG DOSING (CG) 64.34 mL/min; MAGNESIUM 1.9 mg/dL (1.8-2.4); POTASSIUM,K 5.9 mmol/L (3.5-5.1); PROTEIN TOTAL,TP 6.7 g/dL (6.4-8.2)
[2023-05-07] MEDS: Sodium Polystyrene Sulfonate 15 GM/60 ML Susp 60 ML Bot PO ONE (09:45)
[2023-05-07] MEDS: Multivitamin Tab PO SCH (09:45)
[2023-05-08 09:03] LABS: BASOPHILS ABSOLUTE AUTO 0.08 K/uL (0.02-0.10); BASOPHILS PERCENT AUTO 1.4 % (0.0-0.5); EOSINOPHILS ABSOLUTE AUTO 0.35 K/uL (0.04-0.40); EOSINOPHILS PERCENT AUTO 6.2 % (1.0-5.0); HEMATOCRIT 28.3 % (40.0-54.0); HEMOGLOBIN 9.3 g/dL (13.0-18.0); LYMPHOCYTES ABSOLUTE AUTO 0.83 K/uL (1.50-4.00); LYMPHOCYTES PERCENT AUTO 14.7 % (20.0-40.0); MEAN CORPUSCULAR HEMOGLOBIN 32.3 pg (27.0-32.0); MEAN CORPUSCULAR HGB CONC 32.9 g/dL (31.0-35.0); MEAN CORPUSCULAR VOLUME 98 fL (76-96); MEAN PLATELET VOLUME 11.9 fL (6.0-10.0); MONOCYTES ABSOLUTE AUTO 1.07 K/uL (0.20-0.80); NEUTROPHILS ABSOLUTE AUTO 3.31 K/uL (2.00-7.50); NEUTROPHILS PERCENT AUTO 58.7 % (45.0-70.0); PLATELET COUNT,PLT 146 K/uL (150-400); RED BLOOD CELL COUNT 2.88 M/uL (4.50-6.50); RED CELL DISTRIBUTION WIDTH 24.8 % (11.0-16.0); WHITE BLOOD CELL COUNT,WBC 5.6 K/uL (4.0-11.0)
[2023-05-08 09:25] LABS: A/G RATIO 0.6 (0.8-2.0); ALBUMIN 2.6 g/dL (3.4-5.0); ANION GAP 13.8 mmol/L (5.0-15.0); BILIRUBIN TOTAL 1.4 mg/dL (0.0-1.0); BUN/CREATININE RATIO 26.3 (6-25); CALCIUM 8.2 mg/dL (8.5-10.1); CARBON DIOXIDE,CO2 23.1 mmol/L (21.0-32.0); CREATININE 1.18 mg/dL (0.70-1.30); EST CRCL DRUG DOSING (CG) 56.71 mL/min; POTASSIUM,K 4.9 mmol/L (3.5-5.1); PROTEIN TOTAL,TP 7.2 g/dL (6.4-8.2)
[2023-05-09 08:43] LABS: HEMATOCRIT 26.1 % (40.0-54.0); HEMOGLOBIN 8.7 g/dL (13.0-18.0); MEAN CORPUSCULAR HEMOGLOBIN 32.7 pg (27.0-32.0); MEAN CORPUSCULAR HGB CONC 33.3 g/dL (31.0-35.0); MEAN PLATELET VOLUME 11.9 fL (6.0-10.0); RED BLOOD CELL COUNT 2.66 M/uL (4.50-6.50); RED CELL DISTRIBUTION WIDTH 24.9 % (11.0-16.0)
[2023-05-09 08:52] LABS: A/G RATIO 0.6 (0.8-2.0); ALBUMIN 2.7 g/dL (3.4-5.0); ANION GAP 11.7 mmol/L (5.0-15.0); BILIRUBIN TOTAL 1.8 mg/dL (0.0-1.0); BUN/CREATININE RATIO 28.3 (6-25); CALCIUM 8.5 mg/dL (8.5-10.1); CARBON DIOXIDE,CO2 23.7 mmol/L (21.0-32.0); CREATININE 0.99 mg/dL (0.70-1.30); EST CRCL DRUG DOSING (CG) 67.59 mL/min; POTASSIUM,K 5.4 mmol/L (3.5-5.1); PROTEIN TOTAL,TP 7.1 g/dL (6.4-8.2)
[2023-05-10 08:20] LABS: HEMATOCRIT 27.5 % (40.0-54.0); MEAN CORPUSCULAR HEMOGLOBIN 33.1 pg (27.0-32.0); MEAN CORPUSCULAR HGB CONC 32.7 g/dL (31.0-35.0); MEAN PLATELET VOLUME 11.3 fL (6.0-10.0); RED BLOOD CELL COUNT 2.72 M/uL (4.50-6.50); WHITE BLOOD CELL COUNT,WBC 5.1 K/uL (4.0-11.0)
[2023-05-10 08:45] LABS: A/G RATIO 0.6 (0.8-2.0); ALBUMIN 2.7 g/dL (3.4-5.0); ANION GAP 13.7 mmol/L (5.0-15.0); BILIRUBIN TOTAL 1.8 mg/dL (0.0-1.0); CALCIUM 8.7 mg/dL (8.5-10.1); CARBON DIOXIDE,CO2 23.7 mmol/L (21.0-32.0); CREATININE 1.04 mg/dL (0.70-1.30); EST CRCL DRUG DOSING (CG) 64.34 mL/min; POTASSIUM,K 5.4 mmol/L (3.5-5.1); PROTEIN TOTAL,TP 7.2 g/dL (6.4-8.2)
[2023-05-11] MEDS: Furosemide 20 MG Tab PO SCH (07:53)
[2023-05-11 08:21] LABS: INR 1.3 (1.0-3.5)
[2023-05-11 08:25] LABS: PROTHROMBIN TIME 13.2 sec (9.0-11.5)
[2023-05-11 09:13] LABS: BUN/CREATININE RATIO 21.1 (6-25); CALCIUM 8.4 mg/dL (8.5-10.1); CARBON DIOXIDE,CO2 24.9 mmol/L (21.0-32.0); CREATININE 1.09 mg/dL (0.70-1.30); EST CRCL DRUG DOSING (CG) 61.39 mL/min; POTASSIUM,K 5.9 mmol/L (3.5-5.1)
[2023-05-11] MEDS: Sodium Polystyrene Sulfonate 15 GM/60 ML Susp 60 ML Bot PO SCH (16:29)
[2023-05-11] MEDS: Warfarin 2 MG Tab PO ONE (17:40)
[2023-05-11] MEDS: Calcium Carbonate 500 MG Tab.Chew PO PRN (19:56)
[2023-05-12 08:22] LABS: A/G RATIO 0.6 (0.8-2.0); ALBUMIN 2.6 g/dL (3.4-5.0); ANION GAP 11.3 mmol/L (5.0-15.0); BILIRUBIN TOTAL 1.6 mg/dL (0.0-1.0); BUN/CREATININE RATIO 20.3 (6-25); CALCIUM 8.3 mg/dL (8.5-10.1); CARBON DIOXIDE,CO2 26.2 mmol/L (21.0-32.0); CREATININE 1.18 mg/dL (0.70-1.30); EST CRCL DRUG DOSING (CG) 56.71 mL/min; POTASSIUM,K 5.5 mmol/L (3.5-5.1); PROTEIN TOTAL,TP 6.8 g/dL (6.4-8.2)
[2023-05-13 07:57] LABS: INR 1.4 (1.0-3.5)
[2023-05-13 08:12] LABS: PROTHROMBIN TIME 13.9 sec (9.0-11.5)
[2023-05-13 08:16] LABS: A/G RATIO 0.6 (0.8-2.0); ALBUMIN 2.7 g/dL (3.4-5.0); ANION GAP 11.9 mmol/L (5.0-15.0); BILIRUBIN TOTAL 2.3 mg/dL (0.0-1.0); BUN/CREATININE RATIO 18.9 (6-25); CALCIUM 8.2 mg/dL (8.5-10.1); CARBON DIOXIDE,CO2 25.8 mmol/L (21.0-32.0); CREATININE 1.11 mg/dL (0.70-1.30); EST CRCL DRUG DOSING (CG) 60.29 mL/min; POTASSIUM,K 4.7 mmol/L (3.5-5.1); PROTEIN TOTAL,TP 7.2 g/dL (6.4-8.2)
[2023-05-14] MEDS: Lactulose Soln 10 GM/15 ML 15 ML UD Cup PO SCH (11:47)
== END 2023-05-14 12:36 | disposition swing bed (61) | DRG 442 ==
LOC: LB.MS 12:34 → UNDODISIN 05-14 13:00
PROVIDERS: ADMIT Physician Assistant; ATTEND Physician Assistant
DX: K76.82 Hepatic encephalopathy (principal); K92.2 Gastrointestinal hemorrhage, unspecified; N17.9 Acute kidney failure, unspecified; R62.7 Adult failure to thrive; I48.91 Unspecified atrial fibrillation; I50.9 Heart failure, unspecified; I11.0 Hypertensive heart disease with heart failure; K21.9 Gastro-esophageal reflux disease without esophagitis; E03.9 Hypothyroidism, unspecified; K59.00 Constipation, unspecified; E87.5 Hyperkalemia; R79.89 Other specified abnormal findings of blood chemistry; K76.0 Fatty (change of) liver, not elsewhere classified; R60.1 Generalized edema; N18.9 Chronic kidney disease, unspecified; K74.60 Unspecified cirrhosis of liver; M25.511 Pain in right shoulder; K72.10 Chronic hepatic failure without coma; D50.9 Iron deficiency anemia, unspecified; Z68.25 Body mass index [BMI] 25.0-25.9, adult; Z88.8 Allergy status to other drugs, medicaments and biological substances; Z79.899 Other long term (current) drug therapy; Z79.01 Long term (current) use of anticoagulants; Z95.2 Presence of prosthetic heart valve; Z89.612 Acquired absence of left leg above knee; Z86.718 Personal history of other venous thrombosis and embolism; Z86.010 Personal history of colon polyps
CPT/HCPCS: 36415; 71260; 74177; 80048; 80053; 82140; 83735; 85025; 85027; 85610; 97110-GO; 97110-GP; 97116-GP; 97530-GO; 97530-GP; 99222; 99232; A9270-GY; J7030; J7120

== ENCOUNTER 2023-05-14 11:22 | Inpatient (IN) | payer MEDICARE ==
[2023-05-14] MEDS ORDERED: Bisacodyl 5 MG Tab PO PRN (13:13)
[2023-05-14] MEDS ORDERED: Calcium Carbonate 500 MG Tab.Chew PO PRN (13:14)
[2023-05-14] MEDS ORDERED: Ondansetron 4 MG Tab.DIS PO PRN (13:22)
[2023-05-14] MEDS: Warfarin 2 MG Tab PO SCH (17:00)
[2023-05-14] MEDS: Melatonin 3 MG Tab PO SCH (20:24)
[2023-05-14] MEDS: traMADol 50 MG Tab PO PRN (20:25)
[2023-05-14] MEDS: Pantoprazole 40 MG Tab.CR PO SCH (20:25)
[2023-05-15] MEDS: Levothyroxine 100 MCG Tab PO SCH (07:44)
[2023-05-15] MEDS: Multivitamin Tab PO SCH (07:44)
[2023-05-15] MEDS: Ferrous Sulfate 325 MG Tab PO SCH (07:44)
[2023-05-15] MEDS: Lactobacillus Acidophilus/Lactobacillus Sporogenes (Probiotic) Tab PO SCH (07:44)
[2023-05-15] MEDS: Lactulose Soln 10 GM/15 ML 15 ML UD Cup PO SCH (07:45)
[2023-05-15] MEDS: Finasteride 5 MG Tab PO SCH (07:45)
[2023-05-15] MEDS: Furosemide 20 MG Tab PO SCH (07:45)
[2023-05-15] MEDS: Polyethylene Glycol 3350 Powder 17 GM Packet PO SCH (07:46)
[2023-05-15] MEDS: Metoprolol Succinate 25 MG Tab.ER PO SCH (10:14)
[2023-05-17] MEDS: fentaNYL 12 MCG/HR Transdermal Patch TRDERM SCH (13:24)
[2023-05-19 07:58] VITALS: BP 138/52; PULSE 53
[2023-05-19] MEDS ORDERED: Furosemide 20 MG Tab ONE (11:00)
[2023-05-19] MEDS ORDERED: Lactulose Soln 10 GM/15 ML 15 ML UD Cup ONE (11:00)
[2023-05-19] MEDS ORDERED: Lactobacillus Acidophilus/Lactobacillus Sporogenes (Probiotic) Tab ONE (11:00)
[2023-05-19] MEDS ORDERED: fentaNYL 12 MCG/HR Transdermal Patch ONE (11:00)
== END 2023-05-19 13:45 | disposition home or self-care (01) | DRG 948 ==
LOC: LB.MS 12:37
PROVIDERS: ADMIT Surgery; ATTEND Registered Nurse
DX: R53.81 Other malaise (principal); M62.81 Muscle weakness (generalized); N18.9 Chronic kidney disease, unspecified; K76.82 Hepatic encephalopathy; I50.9 Heart failure, unspecified; E87.70 Fluid overload, unspecified; M25.511 Pain in right shoulder; E87.5 Hyperkalemia; K21.9 Gastro-esophageal reflux disease without esophagitis; K74.60 Unspecified cirrhosis of liver; E03.9 Hypothyroidism, unspecified; Z88.8 Allergy status to other drugs, medicaments and biological substances; Z79.01 Long term (current) use of anticoagulants; Z79.890 Hormone replacement therapy; Z79.899 Other long term (current) drug therapy; Z86.718 Personal history of other venous thrombosis and embolism; Z86.010 Personal history of colon polyps; Z89.9 Acquired absence of limb, unspecified
CPT/HCPCS: 97110-GP; 97530-GP; 99305; 99316; A9270-GY

== ENCOUNTER 2023-06-23 11:13 | Inpatient (IN) | payer MEDICARE ==
[2023-06-23 12:07] LABS: BASOPHILS ABSOLUTE AUTO 0.08 K/uL (0.02-0.10); BASOPHILS PERCENT AUTO 1.4 % (0.0-0.5); EOSINOPHILS ABSOLUTE AUTO 0.27 K/uL (0.04-0.40); EOSINOPHILS PERCENT AUTO 4.8 % (1.0-5.0); HEMATOCRIT 30.6 % (40.0-54.0); HEMOGLOBIN 9.8 g/dL (13.0-18.0); LYMPHOCYTES ABSOLUTE AUTO 0.73 K/uL (1.50-4.00); LYMPHOCYTES PERCENT AUTO 12.9 % (20.0-40.0); MEAN CORPUSCULAR HEMOGLOBIN 33.3 pg (27.0-32.0); MEAN CORPUSCULAR VOLUME 104 fL (76-96); MEAN PLATELET VOLUME 10.7 fL (6.0-10.0); MONOCYTES ABSOLUTE AUTO 0.97 K/uL (0.20-0.80); MONOCYTES PERCENT AUTO 17.1 % (3.0-10.0); NEUTROPHILS ABSOLUTE AUTO 3.62 K/uL (2.00-7.50); NEUTROPHILS PERCENT AUTO 63.8 % (45.0-70.0); PLATELET COUNT,PLT 166 K/uL (150-400); RED BLOOD CELL COUNT 2.94 M/uL (4.50-6.50); RED CELL DISTRIBUTION WIDTH 22.4 % (11.0-16.0); WHITE BLOOD CELL COUNT,WBC 5.7 K/uL (4.0-11.0)
[2023-06-23 12:17] LABS: A/G RATIO 0.5 (0.8-2.0); ALBUMIN 2.4 g/dL (3.4-5.0); ANION GAP 8.6 mmol/L (5.0-15.0); BILIRUBIN TOTAL 2.3 mg/dL (0.0-1.0); BUN/CREATININE RATIO 18.3 (6-25); CALCIUM 8.3 mg/dL (8.5-10.1); CARBON DIOXIDE,CO2 29.8 mmol/L (21.0-32.0); CREATININE 1.2 mg/dL (0.70-1.30); EST CRCL DRUG DOSING (CG) 49.73 mL/min; POTASSIUM,K 4.4 mmol/L (3.5-5.1); PROTEIN TOTAL,TP 6.9 g/dL (6.4-8.2)
[2023-06-23 12:50] LABS: INR 2.1 (1.0-3.5)
[2023-06-23 12:53] LABS: PROTHROMBIN TIME 20.9 sec (9.0-11.5)
[2023-06-23] MEDS: Morphine 4 MG/ML VIAL IVPUSH ONE (13:09)
[2023-06-23] MEDS: Sodium Chloride 0.9% 10 ML Syringe FLUSH PRN (13:11)
[2023-06-23] MEDS: Morphine 4 MG/ML VIAL ONE (13:14)
[2023-06-23] MEDS: cefTRIAXone 2 GM in Sodium Chloride 0.9% 100 ML IV ONE (14:11)
[2023-06-23] MEDS ORDERED: Non-Formulary Medication 1 Each (Calcium Carbonate [Tums] 500 MG Tab.Chew) PO PRN (14:15)
[2023-06-23] MEDS ORDERED: fentaNYL 12 MCG/HR Transdermal Patch TRDERM SCH (14:15)
[2023-06-23] MEDS ORDERED: Bisacodyl 5 MG Tab PO PRN (14:20)
[2023-06-23] MEDS ORDERED: Calcium Carbonate 500 MG Tab.Chew PO PRN (14:21)
[2023-06-23] MEDS: cefTRIAXone 2 GM Vial ONE (16:12)
[2023-06-23] MEDS: ALOE VERA TOP SCH (16:37)
[2023-06-23] MEDS: TROLAMINE SALICYLATE TOP SCH (16:37)
[2023-06-23] MEDS: fentaNYL 12 MCG/HR Transdermal Patch TRDERM SCH (16:37)
[2023-06-23] MEDS: [UNRECOGNIZED DRUG - OTHER] TOP SCH (16:37)
[2023-06-23] MEDS: WARFARIN 2 MG PO SCH (17:06)
[2023-06-23] MEDS ORDERED: Warfarin 2 MG Tab PO SCH (18:00)
[2023-06-23] MEDS ORDERED: Melatonin 3 MG Tab PO SCH (20:00)
[2023-06-23] MEDS ORDERED: Pantoprazole 40 MG Tab.CR PO SCH (20:00)
[2023-06-23] MEDS: Melatonin 10 MG Cap PO SCH (20:45)
[2023-06-23] MEDS: Pantoprazole 40 MG Tab.CR PO SCH (20:45)
[2023-06-23] MEDS: cefTRIAXone 1 GM in Sodium Chloride 0.9% 50 ML IV SCH (20:45)
[2023-06-24] MEDS: traMADol 50 MG Tab PO PRN (02:25)
[2023-06-24] MEDS ORDERED: Non-Formulary Medication 1 Each (Lactobacillus Acidophilus [Acidophilus] 1 EACH Cap) PO SCH (08:00)
[2023-06-24] MEDS: Levothyroxine 100 MCG Tab PO SCH (08:25)
[2023-06-24] MEDS: Polyethylene Glycol 3350 Powder 17 GM Packet PO SCH (09:42)
[2023-06-24] MEDS: Metoprolol Succinate 25 MG Tab.ER PO SCH (09:43)
[2023-06-24] MEDS: Finasteride 5 MG Tab PO SCH (09:43)
[2023-06-24] MEDS: Ferrous Sulfate 325 MG Tab PO SCH (09:43)
[2023-06-24] MEDS: Lactulose Soln 10 GM/15 ML 15 ML UD Cup PO SCH (09:43)
[2023-06-24] MEDS: Furosemide 20 MG Tab PO SCH (09:43)
[2023-06-24] MEDS: Morphine 4 MG/ML VIAL IVPUSH PRN (10:07)
[2023-06-24] MEDS: Trolamine Salicylate/Aloe Vera 10% Crm 85 GM Tube TOP SCH (11:48)
[2023-06-24] MEDS: Warfarin 4 MG Tab PO SCH (17:34)
[2023-06-25] MEDS: Lactobacillus Acidophilus/Lactobacillus Sporogenes (Probiotic) Tab PO SCH (07:24)
[2023-06-25 15:06] LABS: PROCALCITONIN 0.11 ng/mL
[2023-06-25 15:07] LABS: BASOPHILS ABSOLUTE AUTO 0.17 K/uL (0.02-0.10); EOSINOPHILS ABSOLUTE AUTO 0.26 K/uL (0.04-0.40); HEMATOCRIT 29.9 % (40.0-54.0); HEMOGLOBIN 9.7 g/dL (13.0-18.0); LYMPHOCYTES ABSOLUTE AUTO 0.86 K/uL (1.50-4.00); LYMPHOCYTES PERCENT AUTO 10.1 % (20.0-40.0); MEAN CORPUSCULAR HEMOGLOBIN 33.8 pg (27.0-32.0); MEAN CORPUSCULAR HGB CONC 32.4 g/dL (31.0-35.0); MEAN CORPUSCULAR VOLUME 104 fL (76-96); MEAN PLATELET VOLUME 10.7 fL (6.0-10.0); MONOCYTES ABSOLUTE AUTO 1.49 K/uL (0.20-0.80); MONOCYTES PERCENT AUTO 17.5 % (3.0-10.0); NEUTROPHILS ABSOLUTE AUTO 5.75 K/uL (2.00-7.50); NEUTROPHILS PERCENT AUTO 67.4 % (45.0-70.0); PLATELET COUNT,PLT 148 K/uL (150-400); RED BLOOD CELL COUNT 2.87 M/uL (4.50-6.50); RED CELL DISTRIBUTION WIDTH 21.8 % (11.0-16.0); WHITE BLOOD CELL COUNT,WBC 8.5 K/uL (4.0-11.0)
[2023-06-25 15:21] LABS: ANION GAP 10.8 mmol/L (5.0-15.0); BUN/CREATININE RATIO 19.3 (6-25); CALCIUM 8.1 mg/dL (8.5-10.1); CARBON DIOXIDE,CO2 28.5 mmol/L (21.0-32.0); CREATININE 1.19 mg/dL (0.70-1.30); EST CRCL DRUG DOSING (CG) 50.15 mL/min; POTASSIUM,K 4.3 mmol/L (3.5-5.1)
[2023-06-25] MEDS: Furosemide 20 MG Tab PO SCH (16:49)
[2023-06-25] MEDS: Warfarin 3 MG Tab PO SCH (17:26)
[2023-06-26] MEDS: Furosemide 20 MG Tab PO SCH (13:58)
[2023-06-26] MEDS: fentaNYL 12 MCG/HR Transdermal Patch ONE (17:44)
[2023-06-26] MEDS: Vancomycin 500 MG SDV ONE (17:44)
[2023-06-26] MEDS: Pantoprazole 40 MG Tab.CR ONE (19:33)
[2023-06-27 08:12] LABS: ANION GAP 10.1 mmol/L (5.0-15.0); BUN/CREATININE RATIO 17.9 (6-25); C-REACTIVE PROTEIN 33.7 mg/L (<5.0); CALCIUM 7.9 mg/dL (8.5-10.1); CARBON DIOXIDE,CO2 28.3 mmol/L (21.0-32.0); CREATININE 1.12 mg/dL (0.70-1.30); EST CRCL DRUG DOSING (CG) 53.28 mL/min; POTASSIUM,K 4.4 mmol/L (3.5-5.1)
[2023-06-27] MEDS: Pantoprazole 40 MG Tab.CR ONE (08:22)
[2023-06-27] MEDS: Furosemide 40 MG Tab PO SCH (13:45)
[2023-06-27] MEDS: traMADol 50 MG Tab PO PRN (20:53)
[2023-06-28] MEDS: Pantoprazole 40 MG Tab.CR PO SCH ×2 (09:12→09:13)
[2023-06-28] MEDS: Pantoprazole 40 MG Tab.CR ONE (09:12)
[2023-06-28 09:13] LABS: BASOPHILS ABSOLUTE AUTO 0.15 K/uL (0.02-0.10); BASOPHILS PERCENT AUTO 2.6 % (0.0-0.5); HEMATOCRIT 29.1 % (40.0-54.0); HEMOGLOBIN 9.5 g/dL (13.0-18.0); LYMPHOCYTES ABSOLUTE AUTO 0.81 K/uL (1.50-4.00); LYMPHOCYTES PERCENT AUTO 14.2 % (20.0-40.0); MEAN CORPUSCULAR HEMOGLOBIN 33.5 pg (27.0-32.0); MEAN CORPUSCULAR HGB CONC 32.6 g/dL (31.0-35.0); MEAN CORPUSCULAR VOLUME 103 fL (76-96); MEAN PLATELET VOLUME 10.7 fL (6.0-10.0); MONOCYTES ABSOLUTE AUTO 1.14 K/uL (0.20-0.80); NEUTROPHILS ABSOLUTE AUTO 3.21 K/uL (2.00-7.50); NEUTROPHILS PERCENT AUTO 56.2 % (45.0-70.0); PLATELET COUNT,PLT 153 K/uL (150-400); RED BLOOD CELL COUNT 2.84 M/uL (4.50-6.50); RED CELL DISTRIBUTION WIDTH 21.2 % (11.0-16.0); WHITE BLOOD CELL COUNT,WBC 5.7 K/uL (4.0-11.0)
[2023-06-28 09:19] LABS: A/G RATIO 0.5 (0.8-2.0); ALBUMIN 2.2 g/dL (3.4-5.0); ANION GAP 9.7 mmol/L (5.0-15.0); BUN/CREATININE RATIO 19.4 (6-25); C-REACTIVE PROTEIN 33.2 mg/L (<5.0); CARBON DIOXIDE,CO2 27.4 mmol/L (21.0-32.0); CREATININE 1.03 mg/dL (0.70-1.30); EST CRCL DRUG DOSING (CG) 57.94 mL/min; POTASSIUM,K 4.1 mmol/L (3.5-5.1)
[2023-06-28] MEDS: Furosemide 40 MG/4 ML VIAL IVPUSH ONE (09:26)
[2023-06-28] MEDS: Bumetanide 1 MG/4 ML MDV IVPUSH ONE (16:22)
[2023-06-29] MEDS: Albumin 25% 100 ML IV ONE ×2 (10:17→18:16)
[2023-06-29] MEDS: Furosemide 40 MG/4 ML VIAL IVPUSH ONE ×3 (11:36→19:38)
[2023-06-29] MEDS: fentaNYL 12 MCG/HR Transdermal Patch ONE (16:32)
[2023-06-30] MEDS: Spironolactone 25 MG Tab PO SCH (09:25)
[2023-06-30 09:31] LABS: BASOPHILS ABSOLUTE AUTO 0.13 K/uL (0.02-0.10); BASOPHILS PERCENT AUTO 2.2 % (0.0-0.5); EOSINOPHILS ABSOLUTE AUTO 0.34 K/uL (0.04-0.40); EOSINOPHILS PERCENT AUTO 5.7 % (1.0-5.0); HEMATOCRIT 24.2 % (40.0-54.0); LYMPHOCYTES ABSOLUTE AUTO 0.65 K/uL (1.50-4.00); LYMPHOCYTES PERCENT AUTO 10.9 % (20.0-40.0); MEAN CORPUSCULAR HGB CONC 31.8 g/dL (31.0-35.0); MEAN CORPUSCULAR VOLUME 104 fL (76-96); MEAN PLATELET VOLUME 11.2 fL (6.0-10.0); MONOCYTES ABSOLUTE AUTO 0.97 K/uL (0.20-0.80); MONOCYTES PERCENT AUTO 16.2 % (3.0-10.0); NEUTROPHILS ABSOLUTE AUTO 3.88 K/uL (2.00-7.50); PLATELET COUNT,PLT 168 K/uL (150-400); RED BLOOD CELL COUNT 2.33 M/uL (4.50-6.50); RED CELL DISTRIBUTION WIDTH 21.4 % (11.0-16.0)
[2023-06-30 09:36] LABS: HEMOGLOBIN 7.7 g/dL (13.0-18.0)
[2023-06-30] MEDS: Bumetanide 2.5 MG/10 ML MDV IVPUSH SCH (09:37)
[2023-06-30 09:46] LABS: A/G RATIO 0.6 (0.8-2.0); ALBUMIN 2.4 g/dL (3.4-5.0); ANION GAP 5.8 mmol/L (5.0-15.0); BILIRUBIN TOTAL 0.9 mg/dL (0.0-1.0); CALCIUM 7.8 mg/dL (8.5-10.1); CARBON DIOXIDE,CO2 31.3 mmol/L (21.0-32.0); CREATININE 1.07 mg/dL (0.70-1.30); EST CRCL DRUG DOSING (CG) 35.97 mL/min; POTASSIUM,K 4.1 mmol/L (3.5-5.1); PROTEIN TOTAL,TP 6.5 g/dL (6.4-8.2)
[2023-06-30 10:17] LABS: INR > 10.0 (1.0-3.5); PROTHROMBIN TIME > 93.9 sec (9.0-11.5)
[2023-06-30] MEDS: Phytonadione 5 MG Tab PO ONE (10:28)
[2023-06-30] MEDS ORDERED: Bumetanide 2.5 MG/10 ML MDV IVPUSH SCH (20:00)
[2023-07-01] MEDS: Ondansetron 4 MG/2 ML SDV IVPUSH ONE (01:40)
[2023-07-01] MEDS: Ondansetron 4 MG/2 ML SDV IVPUSH PRN (04:14)
[2023-07-01] MEDS: Sodium Chloride 0.9% 1,000 ML IV SCH (05:26)
[2023-07-01 08:28] LABS: MEAN CORPUSCULAR HGB CONC 31.8 g/dL (31.0-35.0); MEAN CORPUSCULAR VOLUME 104 fL (76-96); MEAN PLATELET VOLUME 10.5 fL (6.0-10.0); PLATELET COUNT,PLT 168 K/uL (150-400); RED BLOOD CELL COUNT 1.88 M/uL (4.50-6.50); RED CELL DISTRIBUTION WIDTH 21.1 % (11.0-16.0)
[2023-07-01 08:38] LABS: HEMATOCRIT 19.5 % (40.0-54.0); HEMOGLOBIN 6.2 g/dL (13.0-18.0)
[2023-07-01 08:41] LABS: A/G RATIO 0.6 (0.8-2.0); ALBUMIN 2.2 g/dL (3.4-5.0); ANION GAP 8.7 mmol/L (5.0-15.0); BILIRUBIN TOTAL 1.7 mg/dL (0.0-1.0); BUN/CREATININE RATIO 36.6 (6-25); CALCIUM 7.6 mg/dL (8.5-10.1); CARBON DIOXIDE,CO2 29.7 mmol/L (21.0-32.0); CREATININE 1.01 mg/dL (0.70-1.30); EST CRCL DRUG DOSING (CG) 59.08 mL/min; POTASSIUM,K 4.4 mmol/L (3.5-5.1); PROTEIN TOTAL,TP 5.8 g/dL (6.4-8.2)
[2023-07-01 08:42] LABS: PROTHROMBIN TIME 38.8 sec (9.0-11.5)
[2023-07-01 10:29] LABS: ANISOCYTOSIS MODERATE; POIKILOCYTOSIS MODERATE
[2023-07-01] MEDS: HUM PROTHROMBIN CPLX 2000 UNIT IV ONE (10:29)
[2023-07-01] MEDS: FACTOR IX COMPLEX HUMAN 500 UNIT IV ONE (10:29)
[2023-07-01] MEDS: [UNRECOGNIZED DRUG - OTHER] IV ONE (10:29)
[2023-07-01 10:30] LABS: ELLIPTOCYTES FEW; HYPOCHROMASIA FEW; MICROCYTOSIS FEW; TARGET CELLS FEW; TEARDROP CELLS FEW
[2023-07-01 10:31] LABS: PLATELET COUNT ESTIMATE ADEQUATE; STOMATOCYTES FEW
== END 2023-07-01 12:21 | DRG 603 ==
LOC: LB.ED 11:13 → UNDOADMOB 14:11 → LB.MS 14:11 → UNDOADMOB 14:36 → OBSVTOIN 06-25 11:13 → LB.MS 06-25 11:13
PROVIDERS: ADMIT Surgery; ATTEND Surgery
PROC: 30233K1 Transfusion of Nonautologous Frozen Plasma into Peripheral Vein, Percutaneous Approach (ICD-10-PCS; principal; 2023-07-01)
PROC: 30233N1 Transfusion of Nonautologous Red Blood Cells into Peripheral Vein, Percutaneous Approach (ICD-10-PCS; 2023-07-01)
DX: M79.632 Pain in left forearm (principal); L03.114 Cellulitis of left upper limb; I11.0 Hypertensive heart disease with heart failure; I13.0 Hypertensive heart and chronic kidney disease with heart failure and stage 1 through stage 4 chronic kidney disease, or unspecified chronic kidney disease; I50.9 Heart failure, unspecified; N18.9 Chronic kidney disease, unspecified; I48.91 Unspecified atrial fibrillation; K21.9 Gastro-esophageal reflux disease without esophagitis; E03.9 Hypothyroidism, unspecified; M25.511 Pain in right shoulder; Z79.01 Long term (current) use of anticoagulants; Z88.8 Allergy status to other drugs, medicaments and biological substances; Z79.899 Other long term (current) drug therapy; Z95.2 Presence of prosthetic heart valve; Z86.010 Personal history of colon polyps; Z89.612 Acquired absence of left leg above knee
CPT/HCPCS: 36415; 36430; 80048; 80053; 83605; 83880; 84145; 85025; 85379; 85610; 86140; 86850; 86900; 86901; 86920; 86922; 87045; 87046; 87427; 96365; 96366; 96375; 96376; 97161-GP; 97165-GO; 97530-GP; 99284-25; A9270-GY; G0378; J0696; J1940; J2270; J2405; J3370; J3490; J7030; J7168; P9016; P9017; P9047